=== PATIENT | female | born 1990 | race Caucasian/White ===

== ENCOUNTER 2017-07-04 16:59 | Emergency (ER) | payer MEDICAID, SELFPAY ==
[2017-07-04 16:59] VITALS: BP 148/75; PULSE 119; RESP 16; TEMP 36.2; O2SAT 100; BMI 20.2
--- NOTE | 2017-07-04 17:27 | US_ITS ---
STUDY: ULTRASOUND TRANSVAGINAL CLINICAL: Female, 27 years old. Menorrhagia status post . TECHNIQUE: Transvaginal COMPARISON: None. FINDINGS: Normal uterine size measuring 10.6 x 5.6 x 4.9 cm in maximal craniocaudal dimension. There are no myometrial masses. Normal endometrial thickness measuring 6 mm. Heterogeneous moderately irregular and possibly hypervascular endometrial echoes. Cannot exclude small amount of retained products of conception. Normal uterine cervix. Normal right ovary, measuring 4.6 x 2.6 x 2.7 cm. There is a 2.9 cm cyst. Left ovary is not seen. There is mild free fluid in the pelvis. Polycystic ovary disease: No. US/Transvaginal Non- IMPRESSION: Heterogeneous and irregular endometrial echoes with questionable hypervascularity. Cannot exclude mild retained products of conception. 2.9 cm cyst of the right ovary. Electronically Signed: Bang Crawley MD at 19:19 EDT , Service support ,
[2017-07-04 17:55] LABS: Absolute Lymphocyte Count 2.31 X10^3/ul (0.83-4.51); Absolute Neutrophil Count 6.1 X10^3/uL (2.0-7.7); Basophil# 0.02 X10^3/uL; Basophil% 0.2 % (0-1); Hematocrit 18.4 % (37-47); Lymphocyte # 2.31 X10^3/ul (4.0); Lymphocyte % 25.6 % (19-41); Mean Corp Hgb Conc 32.1 g/gl (32-36); Mean Corpuscular Hgb 28.9 pg (27.0-32.0); Mean Corpuscular Volume 90.2 fL (81-99); Mean Platelet Vol. 9.6 fl (6.2-12.0); Monocyte# 0.63 X10^3/uL; Neutrophil # 6.06 X10^3/uL (2.7-7.7); Platelet Count 199 K/mm3 (150-450); RBC Distribution Width CV 13.7 % (11.6-14.6); RBC Distribution Width SD 45.4 fl (35.1-43.9); Red Blood Count 2.04 M/mm3 (4.2-5.4)
[2017-07-04 18:01] LABS: Hemoglobin 5.9 g/dl (12.0-15.0); POSITIVE COUNT YES; POSITIVE DIFFERENTIAL NO; POSITIVE MORPHOLOGY NO
[2017-07-04 18:02] LABS: Differential Indicated SCAN CRITERIA MET
[2017-07-04 18:25] LABS: Anisocytosis 1+; Hypochromasia 1+; Platelet Estimate ADEQUATE (ADEQ); Polychromasia RARE
[2017-07-04 18:52] VITALS: BP 120/68; BP 120/72; BP 126/62; PULSE 108; PULSE 94; PULSE 96
--- NOTE | 2017-07-04 19:46 | ED.VISSUMM ---
- ER Visit Summary Date of Service: 07/04/17 Chief Complaint: Vaginal bleeding History of Present Illness: The patient is a 27 F presenting for evaluation secondary to vaginal bleeding. Patient underwent a chemical on 06 10. Patient states that she had a normal amount of bleeding after that that stopped after a couple of days. Patient states of 5 days ago she started to have a significant amount of vaginal bleeding again. Patient states that she was going through 2 pads an hour a couple of days ago, but states that since then her bleeding is somewhat tapered off. Patient denies that she is having significant pelvic pain with this. She does intermittently feel somewhat lightheaded denies any chest pain or shortness of breath. Patient is Rh- and got RhoGam prior to her procedure. Physical Examination: Vital signs within normal limits normal blood pressure. Well-nourished female no acute distress. Conjunctival pallor noted. Neck supple heart regular lungs clear. Pelvic exam shows normal external genitalia. There is a moderate amount of active bleeding with small clots noted in the vaginal vault. Cervical eyes was able to be viewed and is normal and closed. Bimanual exam normal. Test Results: CBC shows anemia hemoglobin of 5.9. Patient is Rh-. Pelvic ultrasound shows a 6 mm endometrial stripe, but areas in the endometrium that are concern for hypervascularity. Emergency Department Course and Treatment: Patient presented with vaginal bleeding in the setting of a elective chemical . Patient was found to be anemic. Patient's orthostatic vital signs are found to be negative. Patient's pelvic ultrasound was not able to rule out retained products of conception. I discussed patient's case with Dr. Gonzalez who recommended the patient to be given Cytotec, and be placed on iron. It was recommended that the patient follow-up with her clinic at her earliest convenience. Patient was given signs and symptoms for which to return. She has normal stable blood pressures and appears well compensated I believe that she is safe for discharge at this time. Disposition: Discharge Impression: 1. Vaginal bleeding 2. Recent chemical 3. Anemia This note was generated with [employer] software. It may contain incorrect words, spelling, and punctuation that were not noted in review of the chart prior to signing ED Disposition - Plan for ED Patient: Disposition: Home or Assisted Living Chief Complaint: Vag Bleeding Diagnosis: Menorrhagia Instructions: ED Bleed Irregular Vaginal Prescriptions: Ferrous Sulfate [Iron] 325 mg PO DAILY #30 tab Additional Instructions: Followup with your clinic as soon as possible. Return for worsening bleeding, shortness or breath, or passing out
[2017-07-04 19:48] VITALS: BP 126/62; PULSE 98; RESP 18; O2SAT 100
[2017-07-04] MEDS: miSOPROStol 200 MCG Tablet 400 MCG PO (20:06)
[2017-07-04 20:11] VITALS: BP 111/64; PULSE 96; RESP 17; O2SAT 110
[2017-07-08 12:55] LABS: Pathologist Review Reviewed
== END 2017-07-04 20:17 | disposition home or self-care (01) ==
PROVIDERS: Emergency Provider Emergency Medicine
DX: O03.6 Delayed or excessive hemorrhage following complete or unspecified spontaneous abortion (principal); D64.9 Anemia, unspecified
CPT/HCPCS: 76830; 85025; 86900; 86901; 99285

== ENCOUNTER 2017-10-16 19:19 | Emergency (ER) | payer MEDICAID, SELFPAY ==
[2017-10-16 19:20] VITALS: BP 112/61; PULSE 124; PULSE 133; RESP 100; RESP 20; TEMP 37.6; O2SAT 100; BMI 19.5
--- NOTE | 2017-10-16 19:31 | ED.RN ---
NO OLD EKG'S IN MUSE
[2017-10-16 19:40] LABS: Mucous, Urine 0 SEEN /hpf (<or=2+)
[2017-10-16 19:43] LABS: Color, Urine Yellow (Yellow); Glucose, Dipstick Normal (Normal); Ketone-Dipstick Negative (Negative); Leukocyte Esterase-Dipstick 500 /ul (Negative); Nitrite-Dipstick Positive (Negative); Occult Blood-Urine 50 /ul (Negative); Protein-Dipstick 30 mg/dl (Negative); Urine Bilirubin Dipstick Negative (Negative); Urine Clarity Cloudy (Clear); Urine Urobilinogen Normal (Normal)
[2017-10-16] MEDS: 0.9% Normal Saline 1,000 ML IV.SOLN. 1530 ML IV (19:50)
[2017-10-16] MEDS: Acetaminophen 325 MG Tablet 650 MG PO (19:51)
[2017-10-16 19:55] VITALS: TEMP 37.7
[2017-10-16 20:07] LABS: International Normalized Ratio 1.1; Prothrombin Time (Protime)PT. 14.3 SECONDS (11.7-14.9)
[2017-10-16 20:08] LABS: Absolute Lymphocyte Count 1.52 X10^3/ul (0.83-4.51); Absolute Neutrophil Count 6.3 X10^3/uL (2.0-7.7); Basophil# 0.02 X10^3/uL; Basophil% 0.2 % (0-1); Hematocrit 27.3 % (37-47); Lymphocyte # 1.52 X10^3/ul (4.0); Lymphocyte % 17.6 % (19-41); Mean Corp Hgb Conc 29.3 g/gl (32-36); Mean Corpuscular Hgb 21.3 pg (27.0-32.0); Mean Corpuscular Volume 72.8 fL (81-99); Mean Platelet Vol. 9.7 fl (6.2-12.0); Monocyte# 0.75 X10^3/uL; Monocyte% 8.7 % (0-10); Neutrophil # 6.33 X10^3/uL (2.7-7.7); Neutrophil % 73.4 % (47-70); Partial Thromboplast Time 36.5 Seconds (24.1-36.2); Platelet Count 247 K/mm3 (150-450); RBC Distribution Width CV 21.2 % (11.6-14.6); RBC Distribution Width SD 57.1 fl (35.1-43.9); Red Blood Count 3.75 M/mm3 (4.2-5.4); White Blood Count 8.6 K/mm3 (4.4-11.0)
[2017-10-16 20:13] LABS: Red Blood Cells-Urine 0-5 SEEN /hpf (0-5); White Blood Cells 50-100 SEEN /hpf (0-5)
[2017-10-16 20:14] LABS: Squamous Epithelial Cells - UA 0-5 SEEN /hpf (5-10)
[2017-10-16 20:14] LABS: ALB/GLOB Ratio 0.9 RATIO (0.9-2.4); AST(SGOT) 15 U/L (15-37); Alanine Aminotransfer ALT/SGPT 22 U/L (13-56); Albumin, Serum 3.8 g/dL (3.2-5.0); Alkaline Phosphatase 86 U/L (45-117); Anion Gap 7 (5-15); BUN 9 mg/dL (7-18); BUN/Creat Ratio 13.7 RATIO (10-20); Chloride 100 mmol/L (98-107); Creatinine, Serum 0.66 mg/dL (0.55-1.02); EST Glomerular Filtration Rate 116 mL/min (>60); Est Glom Filt Rate - Afr Amer 141 mL/min (>60); Estimated Creatinine Clearance 106.55 ml/min; Globulin 4.1 g/dL (2.2-4.2); Glucose 103 mg/dL (74-106); Potassium 3.3 mmol/L (3.5-5.1); Protein, Total 7.9 g/dL (6.4-8.2); Sodium Level 134 mmol/L (136-145)
[2017-10-16 20:16] LABS: Bacteria 3+ /hpf (None Seen)
[2017-10-16 20:19] LABS: Differential Indicated SCAN CRITERIA MET; POSITIVE COUNT NO; POSITIVE DIFFERENTIAL NO; POSITIVE MORPHOLOGY YES
[2017-10-16 20:36] LABS: Lactic Acid 1.1 mmol/L (0.4-2.0)
[2017-10-16 20:42] LABS: Platelet Estimate ADEQUATE (ADEQ)
[2017-10-16 20:43] LABS: Anisocytosis 1+; Hypochromasia 1+; Microcytosis 1+; Toxic Granulation RARE
[2017-10-16 21:07] VITALS: BP 103/56; PULSE 100; RESP 20; O2SAT 99
--- NOTE | 2017-10-16 21:07 | ED.RN ---
DR LUCAS AWARE THAT THE PT ONLY RECEIVED ONE LITER NORMAL SALINE,QUESTIONED IF HE WANTED THE REMAINDER 530.STATED NO BECAUSE HER LACTIC IS FINE.
[2017-10-16] MEDS: Ceftriaxone 1 GM/50 ML BAG IV (21:35)
--- NOTE | 2017-10-16 21:35 | ED.VISSUMM ---
- ER Visit Summary Date of Service: 10/16/17 Chief Complaint: UTI and right flank pain History of Present Illness: The patient is a 27 F presenting for evaluation secondary UTI and right flank pain. Patient reports that she is proximally 5 weeks . She is . Patient reports that over the course last 4 days she has had UTI-like symptoms and over the last 2 days she has had flank pain right greater than left. Patient reports that she was seen in urgent care was told that she had a fever and flank pain that she need to come emergently to the emergency department. Patient denies that she is having any other constitutional symptoms such as nausea or vomiting. Review of systems otherwise negative. Physical Examination: Vital signs notable for heart rate of 120 on initial presentation. Well-nourished female no acute distress. Head normocephalic. Moist mucous membranes. No JVD. Heart tach heart irregular no murmurs. Lungs sounds clear. Abdomen soft nontender. Right-sided CVA tenderness to percussion no evidence of deformity overlying vesicular rash. Remainder physical otherwise unremarkable. Test Results: CBC shows chronic anemia 8.0, chemistry unremarkable, lactic acid negative, urinalysis shows evidence of infection Emergency Department Course and Treatment: Patient presented secondary to flank pain and fever. Sepsis workup was obtained, patient has chronic anemia does not have evidence of sepsis or lactic acidosis. She was given a liter normal saline repeat heart rate was in the 80s. Patient will be given Rocephin, she will be discharged on a course of Keflex as she does state that she is 5 weeks . Patient was instructed to follow-up with her primary care physician. Disposition: Discharge Impression: 1. Pyelonephritis 2. First trimester This note was generated with [employer] dictation software. It may contain incorrect words, spelling, and punctuation that were not noted in review of the chart prior to signing ED Disposition - Plan for ED Patient: Disposition: Home or Assisted Living Chief Complaint: Complaint Diagnosis: Pyelonephritis Instructions: ED Kidney Infec Female Prescriptions: Cephalexin [Keflex] 500 mg PO Q6 #40 cap Referrals: Debora Leyva MD [COURTESY STAFF PHYSICIAN] - 3-5 Days
[2017-10-16 22:22] VITALS: BP 103/60; PULSE 89; RESP 16; O2SAT 99
[2017-10-16 22:23] VITALS: BP 103/60; PULSE 89; RESP 16; O2SAT 99
== END 2017-10-16 22:24 | disposition home or self-care (01) ==
PROVIDERS: Emergency Provider Emergency Medicine
DX: O23.01 Infections of kidney in pregnancy, first trimester (principal); Z3A.01 Less than 8 weeks gestation of pregnancy
CPT/HCPCS: 80053; 81001; 83605; 85025; 85610; 85730; 87040; 87077; 87086; 87088; 87186; 96365; 99285; J7030; J7050; A4216

== ENCOUNTER → 2017-10-30 14:05 | Outpatient (CLI) | payer MEDICAID, SELFPAY ==
[2017-10-30 17:21] LABS: Chlamydia Trachomatis by PCR Negative (Negative); Neisserai gonorrhoeae by PCR Negative (Negative); Probe Check PASS; Sample Adequacy Control PASS; Specimen Processing Control PASS
[2017-11-06 17:15] LABS: HPV Reflexed? NOT INDICATED
== END ==
PROVIDERS: Visit Provider Obstetrics & Gynecology
DX: Z12.4 Encounter for screening for malignant neoplasm of cervix (principal); Z11.3 Encounter for screening for infections with a predominantly sexual mode of transmission; Z32.01 Encounter for pregnancy test, result positive
CPT/HCPCS: 87491; 87591; 88175; G0145

== ENCOUNTER → 2017-11-13 10:34 | Outpatient (CLI) | payer MEDICAID, SELFPAY ==
[2017-11-13 11:29] LABS: Color, Urine Yellow (Yellow); Glucose, Dipstick Normal (Normal); Ketone-Dipstick Negative (Negative); Leukocyte Esterase-Dipstick Negative /ul (Negative); Nitrite-Dipstick Negative (Negative); Occult Blood-Urine Negative /ul (Negative); Protein-Dipstick Negative (Negative); Specific Gravity, Urine 1.015 (1.002-1.030); Urine Bilirubin Dipstick Negative (Negative); Urine Clarity Clear (Clear); Urine Urobilinogen Normal (Normal)
[2017-11-13 11:31] LABS: Absolute Lymphocyte Count 1.51 X10^3/ul (0.83-4.51); Absolute Neutrophil Count 2.6 X10^3/uL (2.0-7.7); Basophil# 0.02 X10^3/uL; Basophil% 0.4 % (0-1); Hematocrit 27.3 % (37-47); Hemoglobin 8.3 g/dl (12.0-15.0); Lymphocyte # 1.51 X10^3/ul (4.0); Lymphocyte % 33.4 % (19-41); Mean Corp Hgb Conc 30.4 g/gl (32-36); Mean Corpuscular Hgb 23.4 pg (27.0-32.0); Mean Corpuscular Volume 76.9 fL (81-99); Monocyte# 0.38 X10^3/uL; Monocyte% 8.4 % (0-10); Neutrophil # 2.61 X10^3/uL (2.7-7.7); Neutrophil % 57.8 % (47-70); Platelet Count 233 K/mm3 (150-450); RBC Distribution Width CV 19.7 % (11.6-14.6); RBC Distribution Width SD 55.4 fl (35.1-43.9); Red Blood Count 3.55 M/mm3 (4.2-5.4); White Blood Count 4.5 K/mm3 (4.4-11.0)
[2017-11-13 11:34] LABS: POSITIVE COUNT NO; POSITIVE DIFFERENTIAL NO; POSITIVE MORPHOLOGY NO
[2017-11-13 11:42] LABS: Amphetamine Urine VISTA NEGATIVE (<1000 ng/mL); Barbiturate Urine VISTA NEGATIVE (< 200 ng/mL); Benzodiazepine Urine VISTA NEGATIVE (< 200 ng/mL); Cocaine Urine VISTA NEGATIVE (< 300 ng/mL); Ecstacy Urine VISTA NEGATIVE (< 500 ng/mL); Methadone Urine VISTA NEGATIVE (< 300 ng/mL); PCP Urine VISTA NEGATIVE (< 25 ng/mL); THC Urine VISTA NEGATIVE (< 50 ng/mL); Vista UDS pH Range 8
[2017-11-13 11:47] LABS: Thyroid Stim Hormone (TSH) 1.71 uIU/mL (0.358-3.74)
[2017-11-14 01:34] LABS: Prenatal RPR NONREACTIVE (NONREACTIVE)
[2017-11-14 09:38] LABS: HIV - WCH Non-Reactive (Nonreactive); Rubella IgG 91.5 IU/mL
[2017-11-17 11:37] LABS: HEPATITIS B SURFACE AG Negative (Negative); Hep C Antibodies <0.1 s/co ratio (0.0-0.9); V-Zoster IgG (Immunity) 585 index (Immune >165)
== END ==
PROVIDERS: Visit Provider Obstetrics & Gynecology
DX: Z34.81 Encounter for supervision of other normal pregnancy, first trimester (principal)
CPT/HCPCS: 36415; 80307; 81002; 84443; 85025; 86703; 86762; 86787; 86803; 87340

== ENCOUNTER → 2018-01-02 10:37 | Outpatient (CLI) | payer MEDICAID, SELFPAY | PROVIDERS: Visit Provider Obstetrics & Gynecology | DX: N39.0 Urinary tract infection, site not specified (principal) | CPT/HCPCS: 87086; 87088; 87186 ==

== ENCOUNTER → 2018-02-24 11:28 | Outpatient (CLI) | payer MEDICAID, SELFPAY ==
[2018-02-24 12:24] LABS: Hematocrit 28.8 % (37-47); Hemoglobin 8.9 g/dl (12.0-15.0); Mean Corp Hgb Conc 30.9 g/gl (32-36); Mean Corpuscular Hgb 25.1 pg (27.0-32.0); Mean Corpuscular Volume 81.1 fL (81-99); Mean Platelet Vol. 9.8 fl (6.2-12.0); Platelet Count 282 K/mm3 (150-450); RBC Distribution Width CV 14.4 % (11.6-14.6); RBC Distribution Width SD 41.2 fl (35.1-43.9); Red Blood Count 3.55 M/mm3 (4.2-5.4); White Blood Count 5.6 K/mm3 (4.4-11.0)
[2018-02-24 12:25] LABS: Scan Indicated on CBC? Y/N NO
[2018-02-24 12:37] LABS: Glucose Challenge Gest 1H 50g 78 mg/dL (70-140)
== END ==
PROVIDERS: Visit Provider Obstetrics & Gynecology
DX: Z34.83 Encounter for supervision of other normal pregnancy, third trimester (principal)
CPT/HCPCS: 36415; 82950; 85027; 86850

== ENCOUNTER → 2018-04-16 12:02 | Outpatient (CLI) | payer MEDICAID, SELFPAY | PROVIDERS: Visit Provider Obstetrics & Gynecology | DX: Z36.85 Encounter for antenatal screening for Streptococcus B (principal) | CPT/HCPCS: 87081 ==

== ENCOUNTER 2018-05-17 13:35 | Inpatient (IN) | payer MEDICAID, SELFPAY ==
--- NOTE | 2018-05-17 13:17 | OB.TRI.NOTE ---
- Problem List (1) 39 weeks gestation of Status: Acute History of Present Illness Date of Service: 05/17/18 Reason For Visit: R/O LABOR Final FARIHA: 05/18/18 Final FARIHA Source: US <20 weeks Gestational age: 39 Weeks and 6 Days History of Present Illness: 27yo c/o leaking of fluid. Allergies No Known Allergies Allergy (Verified 10/16/17 19:19) Physical Exam Cervix Dilation (cm): 2 - per RN exam Sanjuana Farrell Station: -2 Effacement (%): 60 NST - FHR Rate Baby A Baseline: 135 Variability:: Moderate Accelerations:: 15 x 15 Decelerations:: None NST Reactive:: Yes FHR Category:: Category I Uterine Activity:: 10
[2018-05-17 13:25] VITALS: BMI 21.9
[2018-05-17 13:36] LABS: ROM Internal Control Test YES-OK TO RESULT pt. (Internal QC)
[2018-05-17 13:37] LABS: ROM Patient Test POSITIVE (Negative); Record Kit Lot#, ROM+ J7836
--- NOTE | 2018-05-17 13:41 | PCM.HP.OB ---
- Problem List (1) 39 weeks gestation of Status: Acute History Date of Admission: 05/17/18 Final FARIHA: 05/18/18 Final FARIHA Source: US <20 weeks Gestational age: 39 Weeks and 6 Days History of this : This is a 27 year-old, G [], P [], at weeks gestational age. Medical History: Medical History (Last Updated 05/17/18 @ 14:13 by Mayelin Ward MD) Opiate dependence (Acute) F11.20 on Subutex Allergies No Known Allergies Allergy (Verified 05/17/18 13:25) Home Medications: Home Medications Buprenorphine HCl 12 mg PO DAILY 05/17/18 Vits [Prenatabs FA] 1 tablet PO DAILY 05/17/18 Subutex 12mg PO qam Subutex 6mg PO qpm Smoking Status: Current every day smoker Number of Fetus(es): 1 Heart Tracin, moderate variability, + accelerations, no decelerations. TOCO Analysis: 2/10 min History Past Pregnancies: Past Pregnancies Delivery Date GA/Weeks Outcome Route Weight Gender Labor Length Anesthesia Delivery Location 01/2011 8 SAB Vaginal n/a Home 12/2011 40 Viable 8# M 14 Epidural [facility] 09/2015 39 Viable 7#13 F 12 Epidural [facility] 04/2017 8 TOP Medication Home Expected Infant Delivery Method: Spontaneous Vaginal Describe any other labor & delivery plans:: Pitocin Physical Exam Vitals: avss General: Alert, Oriented x3, Cooperative, No apparent distress HEENT: Atraumatic, Normocephalic Cardiovascular: Regular rate, Regular Rhythm, Normal S1 Lungs: Normal air movement Abdomen: Soft, Non Tender, Non-Distended, Gravid Extremities:: No edema Neurological: Neuro grossly intact [employer]OTHERM[employer] PRODUCTION MANAGER: Normal external genitalia Estimated gestational size: Appropriate for gestational size Presentation: Cephalic Cervix Dilation (cm): 2 Station: -1 Effacement (%): 60 Assessment/Plan All Active Problems 39 weeks gestation of (Acute) PROM (premature rupture of membranes) (Acute) This is a 27 year-old, G [5], P [2021], at 39 6/7 weeks gestational age with premature rupture of membranes, Cat I FHR -Admit -US confirms cephalic presentation -Start pitocin, reviewed with patient r/b/i/a -LARC declined -on Subutex - pt to have home meds brought in for continuation. Discussed optimal pain management in hospital. -Consents reviewed
--- NOTE | 2018-05-17 13:46 | HP.PCM_ITS ---
- Problem List (1) 39 weeks gestation of Status: Acute History Date of Admission: 05/17/18 Final FARIHA: 05/18/18 Final FARIHA Source: US <20 weeks Gestational age: 39 Weeks and 6 Days History of this : This is a 27 year-old, G [], P [], at weeks gestational age. Medical History: Medical History (Last Updated 05/17/18 @ 14:13 by Mayelin Ward MD) Opiate dependence (Acute) F11.20 on Subutex Allergies No Known Allergies Allergy (Verified 05/17/18 13:25) Home Medications: Home Medications Buprenorphine HCl 12 mg PO DAILY 05/17/18 Vits [Prenatabs FA] 1 tablet PO DAILY 05/17/18 Subutex 12mg PO qam Subutex 6mg PO qpm Smoking Status: Current every day smoker Number of Fetus(es): 1 Heart Tracin, moderate variability, + accelerations, no decelerations. TOCO Analysis: 2/10 min History Past Pregnancies: Past Pregnancies Delivery Date GA/Weeks Outcome Route Weight Gender Labor Length Anesthesia Delivery Location 01/2011 8 SAB Vaginal n/a Home 12/2011 40 Viable 8# M 14 Epidural [facility] 09/2015 39 Viable 7#13 F 12 Epidural [facility] 04/2017 8 TOP Medication Home Expected Infant Delivery Method: Spontaneous Vaginal Describe any other labor & delivery plans:: Pitocin Physical Exam Vitals: avss General: Alert, Oriented x3, Cooperative, No apparent distress HEENT: Atraumatic, Normocephalic Cardiovascular: Regular rate, Regular Rhythm, Normal S1 Lungs: Normal air movement Abdomen: Soft, Non Tender, Non-Distended, Gravid Extremities:: No edema Neurological: Neuro grossly intact REPAIRER AND CHECKER: Normal external genitalia Estimated gestational size: Appropriate for gestational size Presentation: Cephalic Cervix Dilation (cm): 2 Station: -1 Effacement (%): 60 Assessment/Plan All Active Problems 39 weeks gestation of (Acute) PROM (premature rupture of membranes) (Acute) This is a 27 year-old, G [5], P [2021], at 39 6/7 weeks gestational age with premature rupture of membranes, Cat I FHR -Admit -US confirms cephalic presentation -Start pitocin, reviewed with patient r/b/i/a -LARC declined -on Subutex - pt to have home meds brought in for continuation. Discussed optimal pain management in hospital. -Consents reviewed
[2018-05-17 14:56] LABS: Amphetamine Urine VISTA NEGATIVE (<1000 ng/mL); Barbiturate Urine VISTA NEGATIVE (< 200 ng/mL); Benzodiazepine Urine VISTA NEGATIVE (< 200 ng/mL); Cocaine Urine VISTA NEGATIVE (< 300 ng/mL); Ecstacy Urine VISTA NEGATIVE (< 500 ng/mL); Methadone Urine VISTA NEGATIVE (< 300 ng/mL); PCP Urine VISTA NEGATIVE (< 25 ng/mL); THC Urine VISTA NEGATIVE (< 50 ng/mL)
[2018-05-17 14:58] LABS: Vista UDS pH Range 6
[2018-05-17] MEDS: Lactated Ringers 1,000 ML 50 ML IV ×2 (14:59→17:22)
[2018-05-17 15:19] LABS: Hematocrit 32.3 % (37-47); Hemoglobin 9.9 g/dl (12.0-15.0); Mean Corp Hgb Conc 30.7 g/gl (32-36); Mean Corpuscular Hgb 23.2 pg (27.0-32.0); Mean Corpuscular Volume 75.8 fL (81-99); Platelet Count 239 K/mm3 (150-450); RBC Distribution Width CV 15.1 % (11.6-14.6); RBC Distribution Width SD 40.9 fl (35.1-43.9); Red Blood Count 4.26 M/mm3 (4.2-5.4); Scan Indicated on CBC? Y/N NO; White Blood Count 8.6 K/mm3 (4.4-11.0)
[2018-05-17] MEDS: Oxytocin 30 units/NS 500 ml 30 UNITS/500 ML IV.SOLN IV (15:48)
[2018-05-17] MEDS: fentaNYL-bupivacaine (epidural) 100 ML BAG EPIDURAL (17:44)
--- NOTE | 2018-05-17 20:04 | PCM.PN.BLA ---
Progress Note LABOR PROGRESS NOTE No complaints. Anson is comfortable with her epidural. Denies urge to push. AVSS GEN - NAD, AAo x 3 FHR 135, moderate variability, + accelerations, +early decelerations TOCO 4/10 min SVE 6/90/0 per RN Mady Griffith A/P: 27yo @ 39 6/7wga in active labor on pitocin, Cat I FHR. -Continue pitocin as tolerated by mother and fetus -Maternal and statuses reassuring
[2018-05-17] MEDS: Oxytocin 30 units/NS 500 ml 30 UNITS/500 ML IV.SOLN 334 UNITS IV (20:57)
--- NOTE | 2018-05-17 21:22 | PCM.OB.VAG ---
- Problem List (1) 39 weeks gestation of Status: Acute (2) (spontaneous vaginal delivery) Status: Acute Vaginal Delivery Maternal Presentation: Spontaneous Rupture of Membranes Method of Induction: Pitocin Amniotic Membrane Rupture Type: Spontaneous at home Rupture of Membrane time: 02305/17/18 Amniotic Fluid Description: Clear Final FARIHA: 05/18/18 Final FARIHA Source: US <20 weeks Gestational age: 39 Weeks and 6 Days Date of Procedure: 05/17/18 Pre-Operative Diagnosis: 39 6/7wga Post-Operative Diagnosis: 39 6/7wga Surgery/ Procedure Performed: Spontaneous Vaginal Delivery Anesthesiologist: Paulina Amado Type of Anesthesia: Epidural Description of Procedure: Patient was FD/+3 station and pushed to deliver a vigorous male . The was placed on the maternal abdomen and further attended by nursery personnel. The cord was doubly clamped and cut. Cord blood specimen was obtained. The placenta delivered spontaneously and appeared intact on inspection, however trailing and residual membranes were noted and retrieved with intrauterine exam and gauze curettage. The uterus was firm with excellent hemostasis. A second degree perineal laceration was repaired with 3-0 Vicryl Rapide. Sponge and needle counts were correct x 2. Presentation: Vertex Placental Delivery Description: Spontaneous Placenta Disposition: [facility] Cord Vessel Description: 3 Vessels Nuchal Cord Compression: Without compression Estimated Blood Loss: 250 ml Infant A gender: Male (1 minute): 9 (5 minute): 9 Episiotomy Description: None Laceration: Midline, Perineal Extension/lac, 2nd degree Medications given after delivery: IV Pitocin Complications: None
[2018-05-17] MEDS: Oxytocin 30 units/NS 500 ml 30 UNITS/500 ML IV.SOLN 167 UNITS IV (21:27)
--- NOTE | 2018-05-17 21:37 | PCM.DCVAG ---
Discharge Diet: No Restrictions Discharge Activity: Return to Normal Activity, May Shower, May Take a Tub Bath May resume sexual activity in: 6 weeks Lifting Restrictions: 20 lb Call your doctor if you observe: Fever of 101 or Higher, Inability to urinate, Inability to have a bowel movement, Using more than one pad per hour, Shortness of breath, Chest pain, Calf discomfort, Uncontrolled pain Suture Line Care: Avoid Pulling/Pushing Cleanse incision/area with: Soap & Water Additional Instructions: If you experience any of the following, contact your healthcare provider. Bleeding that soaks a pad every hour for 2 hours Fever 100.4 or higher Unrelieved incision or abdominal pain Swelling, redness, discharge or bleeding from your incision or episiotomy site Your incision begins to separate Problems urinating (including inability to urinate or burning while urinating). Visual changes Severe headache Flu-like symptoms Pain or redness in one of both of your breasts Pain, warmth, tenderness or swelling in your legs, especially the calf area Frequent nausea and vomiting Symptoms of depression or anxiety If you experience any of the following, call 911 or go to the nearest Emergency Room. Chest pain Problems breathing Seizure activity Partial or complete paralysis of a body part, slurred speech, weakness or drooping of the face, or a sudden inability to walk or hold your balance Allergies/Adverse Reactions: Allergies No Known Allergies Allergy (Verified 05/17/18 13:25) Medications to take at Discharge Buprenorphine HCl 8 mg PO DAILY 05/17/18 Docusate Sodium [Colace] 100 mg PO BID PRN PRN #60 capsule 05/17/18 Ibuprofen 600 mg PO TID PRN #30 tablet 05/17/18 Vits [Prenatabs FA] 1 tablet PO DAILY 05/17/18 The following prescriptions were given: Docusate Sodium [Colace] 100 mg PO BID PRN PRN #60 capsule PRN Reason: Constipation Ibuprofen 600 mg PO TID PRN #30 tablet PRN Reason: Pain Please Follow Up With: Jaskaran Kim MD When: 2 weeks and 6 weeks after delivery Test Results: Test results from this visit will be discussed in further detail at your follow-up appointment, if applicable.
--- NOTE | 2018-05-17 21:41 | DCINST_ITS ---
Discharge Diet: No Restrictions Discharge Activity: Return to Normal Activity, May Shower, May Take a Tub Bath May resume sexual activity in: 6 weeks Lifting Restrictions: 20 lb Call your doctor if you observe: Fever of 101 or Higher, Inability to urinate, Inability to have a bowel movement, Using more than one pad per hour, Shortness of breath, Chest pain, Calf discomfort, Uncontrolled pain Suture Line Care: Avoid Pulling/Pushing Cleanse incision/area with: Soap & Water Additional Instructions: If you experience any of the following, contact your healthcare provider. * Bleeding that soaks a pad every hour for 2 hours * Fever 100.4 or higher * Unrelieved incision or abdominal pain * Swelling, redness, discharge or bleeding from your incision or episiotomy site * Your incision begins to separate * Problems urinating (including inability to urinate or burning while urinating). * Visual changes * Severe headache * Flu-like symptoms * Pain or redness in one of both of your breasts * Pain, warmth, tenderness or swelling in your legs, especially the calf area * Frequent nausea and vomiting * Symptoms of depression or anxiety If you experience any of the following, call 911 or go to the nearest Emergency Room. * Chest pain * Problems breathing * Seizure activity * Partial or complete paralysis of a body part, slurred speech, weakness or drooping of the face, or a sudden inability to walk or hold your balance Allergies/Adverse Reactions: Allergies No Known Allergies Allergy (Verified 05/17/18 13:25) Medications to take at Discharge Buprenorphine HCl 8 mg PO DAILY 05/17/18 Docusate Sodium [Colace] 100 mg PO BID PRN PRN #60 capsule 05/17/18 Ibuprofen 600 mg PO TID PRN #30 tablet 05/17/18 Vits [Prenatabs FA] 1 tablet PO DAILY 05/17/18 The following prescriptions were given: Docusate Sodium [Colace] 100 mg PO BID PRN PRN #60 capsule PRN Reason: Constipation Ibuprofen 600 mg PO TID PRN #30 tablet PRN Reason: Pain Please Follow Up With: Jaskaran Kim MD When: 2 weeks and 6 weeks after delivery Test Results: Test results from this visit will be discussed in further detail at your follow- up appointment, if applicable.
[2018-05-17] MEDS: 0.9% Saline Lock 10 ML Syringe IV (22:33)
[2018-05-17] MEDS: Acetaminophen 325 MG Tablet PO (23:29)
[2018-05-18 02:36] VITALS: BP 118/74; PULSE 73; RESP 14; TEMP 37.1
[2018-05-18 08:00] VITALS: BP 112/77; PULSE 86; RESP 14; TEMP 36.7; O2SAT 99
[2018-05-18] MEDS: Ibuprofen 600 MG Tablet PO ×2 (08:02→15:41)
[2018-05-18] MEDS: Prenatal Vits Tablet 1 TABLET PO (08:32)
[2018-05-18] MEDS: Senna/Docusate Sodium 1 Tablet PO (08:34)
--- NOTE | 2018-05-18 10:16 | NURSING ---
SN assessment reviewed and agree with assessment findings.
[2018-05-18 12:29] VITALS: BP 122/78; PULSE 90; RESP 16; TEMP 36.7; O2SAT 98
[2018-05-18] MEDS: Buprenorphine HCl 2 MG TAB.SUBL 4 MG SL (15:41)
[2018-05-18 16:30] VITALS: BP 133/79; PULSE 72; RESP 18; TEMP 36.4
--- NOTE | 2018-05-18 16:46 | NURSING ---
Updated 180 [Dr. Randall], with patients permission, that she will be taking hospital subutex while here in [facility] ; howevever, she did take one of her own pills this AM. Med will be locked up until is able to come pick it up.
[2018-05-18 20:32] VITALS: BP 131/86; PULSE 78; RESP 18; TEMP 36.5; O2SAT 100
--- NOTE | 2018-05-18 22:07 | NURSING ---
this RN communicated the pt home dose of subutex is on the unit locked in the med room. the charge nurse Lesa is aware of the plan for the father to take home when he leaves unit. this RN plans to watch the father leave the unit with medication when it occurs. father states he will inform the nurses when he plans to leave. will continue to monitor and follow up as needed.
[2018-05-19 02:45] VITALS: BP 112/76; PULSE 83; RESP 18; TEMP 36.5
[2018-05-19] MEDS: Ibuprofen 600 MG Tablet PO (06:38)
--- NOTE | 2018-05-19 06:58 | NURSING ---
charge nurse Lesa instructed this RN to send subutex (home med) home with fiance of pt. Loree, Fredy Mercedes, left for work this AM at 0630. This RN removed subutex from locked narc box in med room and gave to loree. prescription number [id number] with 0 refills left. quantity of 42 noted on pill bottle. chaitanya, nursing breakfast supervisor, was on unit to be aware of this med transfer. this RN watched Fredy leave the unit with pill bottle in hand. No further needs at this time.
--- NOTE | 2018-05-19 08:17 | PN.OBGYN_ITS ---
Patient Problems: Active and Suspected Problems (Last Updated 05/17/18 @ 14:14 by Mayelin Ramon MD) 39 weeks gestation of (Acute) PROM (premature rupture of membranes) (Acute) (spontaneous vaginal delivery) (Acute) Subjective: No issues overnight. feels well, denies heavy lochia. Objective: AVSS - Physical Exam General: Alert, Oriented x3, Cooperative, No apparent distress HEENT: Atraumatic, Normocephalic Lungs: Clear to auscultation, Normal air movement Cardiovascular: Regular rate, Regular Rhythm, Normal S1, Normal S2 Abdomen: Soft, Non Tender, Non-Distended, - - Fundus firm and nontender Extremities: No edema, No Calf Tenderness Neurological: Neuro grossly intact Psych/Mental Status: Normal Affect, Appropriate, Alert and oriented to time, place, person, mood and affect Vital Signs Temp Pulse Resp BP Pulse Ox 97.7 F L 83 18 112/76 100 05/19/18 02:45 05/19/18 02:45 05/19/18 02:45 05/19/18 02:45 05/18/18 20:32 Oxygen Delivery Method Room Air Weight: 57.878 kg Body Mass Index (BMI) 21.9 Intake and Output for Last 24 Hours 05/17/18 05/18/18 05/19/18 23:59 23:59 23:59 Intake Total 1256 / 1256 Output Total 550 / 550 300 / 300 Balance 706 / 706 -300 / -300 Medical Necessity - Tobacco Use Smoking Status: Current every day smoker Assessment/Plan All Active Problems (Last Updated 05/17/18 @ 14:14 by Mayelin Ward MD) 39 weeks gestation of (Acute) PROM (premature rupture of membranes) (Acute) (spontaneous vaginal delivery) (Acute) This is a 27 year-old, G [5], P [3023],PPD#1 s/p doing well. -Routine care -Bottlefeeding
[2018-05-19 08:35] VITALS: BP 114/69; PULSE 85; RESP 18; TEMP 36.2; O2SAT 99
[2018-05-19] MEDS: BUPRENORPHINE HCL 8 MG TAB.SUBL SL (08:38)
[2018-05-19] MEDS: Prenatal Vits Tablet 1 TABLET PO (08:38)
--- NOTE | 2018-05-19 08:58 | PN.OBGYN_ITS ---
Patient Problems: Active and Suspected Problems (Last Updated 05/17/18 @ 14:14 by Mayelin Ramon MD) 39 weeks gestation of (Acute) PROM (premature rupture of membranes) (Acute) (spontaneous vaginal delivery) (Acute) Subjective: No specific complaints. Bottle feeding. Bleeding light. Objective: Afeb VSS - Physical Exam General: Alert, Oriented x3, Cooperative, No apparent distress Lungs: Clear to auscultation, Normal air movement Cardiovascular: Regular rate, Regular Rhythm Abdomen: Soft, Non Tender, Non-Distended, - - Fundus firm nontender Extremities: No edema Skin: No rashes Neurological: Neuro grossly intact Psych/Mental Status: Normal Affect Vital Signs Temp Pulse Resp BP Pulse Ox 97.7 F L 83 18 112/76 100 05/19/18 02:45 05/19/18 02:45 05/19/18 02:45 05/19/18 02:45 05/18/18 20:32 Oxygen Delivery Method Room Air Weight: 127 lb 9.6 oz Body Mass Index (BMI) 21.9 Intake and Output for Last 24 Hours 05/17/18 05/18/18 05/19/18 23:59 23:59 23:59 Intake Total 1256 / 1256 Output Total 550 / 550 300 / 300 Balance 706 / 706 -300 / -300 Medical Necessity - Tobacco Use Smoking Status: Current every day smoker Assessment/Plan All Active Problems (Last Updated 05/17/18 @ 14:14 by Mayelin Ward MD) 39 weeks gestation of (Acute) PROM (premature rupture of membranes) (Acute) (spontaneous vaginal delivery) (Acute) Doing well on PP day#2. Cleared for discharge when baby cleared. May need to go to border status if baby stays. Home going instructions and warnings given.
--- NOTE | 2018-05-19 09:00 | DS.PCM_ITS ---
Discharge Date and Diagnosis - Problem List Patient Problems: Active and Suspected Problems (Last Updated 05/17/18 @ 14:14 by Mayelin Ramon MD) 39 weeks gestation of (Acute) PROM (premature rupture of membranes) (Acute) (spontaneous vaginal delivery) (Acute) Date of Admission: 05/17/18 Date of Discharge: 05/19/18 - Primary Discharge Diagnosis Active and Suspected Problems (Last Updated 05/17/18 @ 14:14 by Mayelin Ramon MD) 39 weeks gestation of (Acute) PROM (premature rupture of membranes) (Acute) (spontaneous vaginal delivery) (Acute) Hospital Course and Treatment Operations: None Procedures: None Summary of Care Provided: The patient is a 27 year old F [admitted with SROM, and entered labor with pitocin augmentation then pushed to deliver a live male without complication. Post course unremarkable. Discharged home on PP day#2.] Patient Problems: Active and Suspected Problems (Last Updated 05/17/18 @ 14:14 by Mayelin Ramon MD) 39 weeks gestation of (Acute) PROM (premature rupture of membranes) (Acute) (spontaneous vaginal delivery) (Acute) - Physical Exam Vital Signs Temp Pulse Resp BP Pulse Ox 97.7 F L 83 18 112/76 100 05/19/18 02:45 05/19/18 02:45 05/19/18 02:45 05/19/18 02:45 05/18/18 20:32 Oxygen Delivery Method Room Air Weight: 127 lb 9.6 oz Body Mass Index (BMI) 21.9 Intake and Output for Last 24 Hours 05/17/18 05/18/18 05/19/18 23:59 23:59 23:59 Intake Total 1256 / 1256 Output Total 550 / 550 300 / 300 Balance 706 / 706 -300 / -300 Discharge Diet: No Restrictions Discharge Activity: Return to Normal Activity, May Shower, May Take a Tub Bath Return to work on:: 07/17/18 May shower in (days): 0 May resume sexual activity in: 6 weeks Call your doctor if your incision/area has: Sudden Increased Bleeding, Increased Pain/ Swelling, Foul Smelling Discharge Call your doctor if you observe: Fever of 101 or Higher, Inability to urinate, Inability to have a bowel movement, Using more than one pad per hour, Shortness of breath, Chest pain, Calf discomfort, Uncontrolled pain Suture Line Care: Avoid Pulling/Pushing Cleanse incision/area with: Soap & Water Home Medications: Medications to take at Discharge Buprenorphine HCl 4 mg SL DAILY 05/17/18 Buprenorphine HCl 8 mg PO DAILY 05/17/18 Docusate Sodium [Colace] 100 mg PO BID PRN PRN #60 capsule 05/17/18 Ibuprofen 600 mg PO TID PRN #30 tablet 05/17/18 Vits [Prenatabs FA] 1 tablet PO DAILY 05/17/18 Following Prescrptions Were Given to Patient: Docusate Sodium [Colace] 100 mg PO BID PRN PRN #60 capsule PRN Reason: Constipation Ibuprofen 600 mg PO TID PRN #30 tablet PRN Reason: Pain Please Follow Up With: Jaskaran Kim MD When: 6 weeks Disposition: Home Minutes spent on discharge:: 15 Patient Condition:: Good Medical Necessity - Tobacco Use Smoking Status: Current every day smoker Meaningful Use Info Meaningful Use Diagnoses (Choose all that apply): None applicable
[2018-05-19 14:50] VITALS: BP 138/88; PULSE 80; RESP 16; TEMP 36.6; O2SAT 100
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
[2018-05-19] MEDS: Buprenorphine HCl 2 MG TAB.SUBL 4 MG SL (16:54)
--- NOTE | 2018-05-19 18:21 | NURSING ---
Discharge instructions reviewed with mother. Waiting on certificate to be checked with patient and significant other. Significant other upset and stated we want to go home, the children have a bedtime. Significant other to bring back photo ID 05/[id number] in order to complete certificate. Discussed discharge of mother with nurse discharge planner and concern about staffing for nightshift being able to care for . Okay with mother going on hotel status at this time, this RN encouraged that infant have a caregiver here and mother of infant stated that she would go home to put the other children to bed and then come back to stay the night.
== END 2018-05-19 18:20 | disposition home or self-care (01) | DRG 560 ==
LOC: WPOUT 13:51
PROVIDERS: Admitting Provider Obstetrics & Gynecology; Referring Provider Obstetrics & Gynecology; Visit Provider Obstetrics & Gynecology
DX: O42.92 Full-term premature rupture of membranes, unspecified as to length of time between rupture and onset of labor (principal); O70.1 Second degree perineal laceration during delivery; O99.334 Smoking (tobacco) complicating childbirth; Z79.899 Other long term (current) drug therapy; Z3A.39 39 weeks gestation of pregnancy; Z37.0 Single live birth
CPT/HCPCS: 59025; 59050; 76815; 80307; 84112; 85027; 85461; 86850; 86900; 90384; 99218; J7120; A4216; G0378; J2790

== ENCOUNTER 2019-02-21 12:50 | Emergency (ER) | payer MEDICAID, SELFPAY ==
[2019-02-21 12:51] VITALS: BP 128/80; PULSE 96; RESP 20; TEMP 37.3; O2SAT 100; BMI 20.5
--- NOTE | 2019-02-21 13:39 | EKG12_ITS ---
Test Reason : SOB Blood Pressure : / mmHG Vent. Rate : 094 BPM Atrial Rate : 094 BPM P-R Int : 160 ms QRS Dur : 084 ms QT Int : 346 ms P-R-T Axes : 081 078 -78 degrees QTc Int : 432 ms Normal sinus rhythm T wave abnormality, consider inferior ischemia Abnormal ECG Confirmed by RADHIKA NICHOLS, CADEN ([id number]), general expeditor VICENTE CORTEZ ([id number]) on 02/23/2019 11:43:05 AM Referred By: ESAU Confirmed By:CADEN GARRIDO MD
--- NOTE | 2019-02-21 13:39 | RAD_ITS ---
STUDY: X-RAY CHEST REASON FOR EXAM: Female, 28 years old. Anxiety TECHNIQUE: 2 views of the chest were obtained COMPARISON: None. FINDINGS: The lungs are clear and expanded. There is no demonstrated pleural abnormality. Normal size heart. Normal mediastinum and kelsey. Normal visualized pulmonary arteries. Normal visualized aortic arch and descending thoracic aorta. Normal visualized thoracic spine. Normal visualized ribs, clavicles, and shoulders. There is no demonstrated abnormality of the visualized soft tissue structures of the upper abdomen. RAD/Chest PA and Lateral IMPRESSION: No acute cardiopulmonary pathology Electronically Signed: Ritesh Robledo, at 14:31 EST Tel , Service support ,
[2019-02-21] MEDS: Ketorolac 30 MG/ML Syringe IV (13:58)
[2019-02-21] MEDS: 0.9% Normal Saline 1,000 ML 150 ML IV (13:58)
--- NOTE | 2019-02-21 14:05 | NURSING ---
NO OLD EKGS
[2019-02-21 14:17] LABS: Absolute Lymphocyte Count 1.75 X10^3/uL (0.83-4.51); Absolute Neutrophil Count 6.2 X10^3/uL (2.0-7.7); Basophil# 0.04 X10^3/uL; Basophil% 0.5 % (0-1); Eosinophil# 0.01 X10^3/uL; Eosinophils% 0.1 % (0-5); Hematocrit 36.1 % (37-47); Hemoglobin 11.9 g/dL (12.0-15.0); Lymphocyte # 1.75 X10^3/ul (4.0); Lymphocyte % 20.8 % (19-41); Mean Corpuscular Hgb 26.6 pg (27.0-32.0); Mean Corpuscular Volume 80.8 fL (81-99); Mean Platelet Vol. 10.8 fl (6.2-12.0); Monocyte# 0.34 X10^3/uL; NRBC Flagged by Analyzer 0 % (0-5); Neutrophil # 6.24 X10^3/uL (2.7-7.7); Neutrophil % 74.2 % (47-70); Platelet Count 257 K/mm3 (150-450); RBC Distribution Width CV 13.9 % (11.6-14.6); RBC Distribution Width SD 40.9 fl (35.1-43.9); Red Blood Count 4.47 M/mm3 (4.2-5.4); White Blood Count 8.4 K/mm3 (4.4-11.0)
[2019-02-21 14:32] LABS: Internal QC Validated? YES +Cl - CLEAR BKGD; Pregnancy, Serum, hCG Quali. NEGATIVE Negative
[2019-02-21 14:54] LABS: Anion Gap 9 (5-15); BUN 13 mg/dL (7-18); BUN/Creat Ratio 19.3 RATIO (10-20); Chloride 108 mmol/L (98-107); Creatinine, Serum 0.67 mg/dL (0.55-1.02); EST Glomerular Filtration Rate 112 mL/min (>60); Est Glom Filt Rate - Afr Amer 136 mL/min (>60); Estimated Creatinine Clearance 109.34 ml/min; Glucose 94 mg/dL (74-106); Potassium 3.5 mmol/L (3.5-5.1); Sodium Level 141 mmol/L (136-145)
--- NOTE | 2019-02-21 15:03 | ED.VIS.GEN ---
History of Present Illness Chief Complaint: Shortness of Breath Detail of Chief Complaint: Shortness of breath and chest pressure Informant: Patient Onset: Yesterday Context: Gradual Onset Timing: Waxes and wanes Current Severity: Mild Maximum Severity: Moderate Narrative: Patient presents with chest heaviness and shortness of breath. She states yesterday she went to the urgent care because she had a shock sensation down her back. She had some chest heaviness at that time as well. She states the chest heaviness is worse. She does have a history of anxiety and is not sure if this is all anxiety/panic disorder related. Patient states she feels clammy and sweaty but has not had a fever. She denies head congestion or URI symptoms. She states that she just feels more fatigued and tired. - Past Medical History (1) Anxiety Status: Chronic Past Medical History - Allergies and Home Meds Allergies/Adverse Reactions: Allergies No Known Allergies Allergy (Verified 02/21/19 12:52) Primary Care Physician: Counseling,Center [GROUP OF PHYSICIANS] - As Needed Prior records reviewed: Yes Lives: With Family Smoking Status: Current every day smoker Review of Systems General: Reports: Sweats. Denies: Chills, Fever Eyes: Denies: Visual changes - bilaterally ENT: Denies: Bilateral ear pain Cardiovascular: Reports: Chest pain. Denies: Palpitations, Heart racing Respiratory: Reports: Dyspnea. Denies: Cough, Sputum Gastrointestinal: Denies: Abdominal pain, Nausea, Vomiting, Diarrhea Genitourinary: Denies: Dysuria Skin: Denies: Rash Neurological: Denies: Headache Hematologic: Denies: Easy bruising, Easy bleeding Allergy: Denies: Uticaria Physical Exam Vital Signs/Narrative: Vital Signs Temp Pulse Resp BP Pulse Ox 02/21/19 12:51 99.1 F 96 20 H 128/80 H 100 Inital Vital Signs reviewed: Yes General: Well nourished, Well developed Head: Normocephalic Eyes: EOMI ENT: Moist mucous membranes, No rhinorrhea Neck: Supple Cardiovascular: Regular rate, Regular rhythm Respiratory: No distress, Diminished Abdomen: Soft, Nontender Back: Nontender Extremities: Nontender Skin: Normal color, No rash Neurological: Alert, Oriented x3 Psychological: Normal affect Diagnostic/Tx/Re-eval Impressions Chest X-Ray 02/21/19 13:39 IMPRESSION: No acute cardiopulmonary pathology Electronically Signed: Ritesh Robledo, at 14:31 EST Tel , Service support , 02/21/19 13:39 Chest PA and Lateral [RAD] Stat Laboratory Results 02/21/19 02/21/19 02/21/19 14:00 14:00 14:00 WBC 8.4 RBC 4.47 Hgb 11.9 L Hct 36.1 L MCV 80.8 L MCH 26.6 L MCHC 33.0 RDW Std Deviation 40.9 RDW Coeff of Tyra 13.9 Plt Count 257 MPV 10.8 Immature Gran % (Auto) 0.400 Neut % (Auto) 74.2 H Lymph % (Auto) 20.8 [place] % (Auto) 4.0 Eos % (Auto) 0.1 Baso % (Auto) 0.5 Absolute Neuts (auto) 6.2 Absolute Lymphs (auto) 1.75 Nucleated RBC % 0 Sodium 141 Potassium 3.5 Chloride 108 H Carbon Dioxide 24.0 Anion Gap 9 BUN 13 Creatinine 0.67 Estim Creat Clear Calc 109.34 Est GFR (MDRD) Af Amer 136 Est GFR (MDRD) Non-Af 112 BUN/Creatinine Ratio 19.3 Glucose 94 Calcium 9.0 Troponin I < 0.015 Serum , Qual NEGATIVE - EKG Initial EKG Interpretation: Sinus Rhythm - Sinus at [address] change. T inversions are noted inferiorly. - Medical Decision Making Patient presents with history of anxiety and chest heaviness. She has no definite cardiac risk factors. No PE risk factors. On repeat evaluation patient is resting comfortably. She is reassured with the test findings. I will write her a short course of Ativan to help with anxiety. She is referred to the counseling center for follow-up. ED Disposition - Plan for ED Patient: Disposition: Home or Assisted Living Diagnosis: Dyspnea, Anxiety Instructions: Anxiety Reaction, ED Dyspnea Prescriptions: Lorazepam [Ativan] 0.5 mg PO TID PRN #10 tab PRN Reason: Anxiety Prescription Printed Referrals: Counseling,Center [GROUP OF PHYSICIANS] - As Needed
[2019-02-21 15:41] VITALS: BP 123/84; PULSE 74; RESP 19
== END 2019-02-21 15:43 | disposition home or self-care (01) ==
PROVIDERS: Emergency Provider Emergency Medicine
DX: R06.00 Dyspnea, unspecified (principal); F41.9 Anxiety disorder, unspecified; R07.89 Other chest pain; F17.200 Nicotine dependence, unspecified, uncomplicated
CPT/HCPCS: 71046; 80048; 84484; 84703; 85025; 93005; 96361; 96374; 99284; J7030; A4216

== ENCOUNTER → 2019-12-30 12:30 | Outpatient (CLI) | payer MEDICAID, SELFPAY ==
[2019-12-16 15:38] VITALS: BMI 20.5
--- NOTE | 2019-12-30 12:31 | STEWCON_ITS ---
Reason For Study: Chest Pain, Palpitations Stress Results Protocol: Stress Echocardiogram Maximum Predicted HR: 193 bpm Target HR: 164 bpm % Maximum Predicted HR: 93 % DurationHeart Rate Stage (mm:ss) (bpm) BP Comment BASELINE 79 120/784 CC DILUTED DEFINITY ABDIEL PROTOCOL- STAGE 1 3:00 117 124/80NO SX ABDIEL PROTOCOL- STAGE 2 3:00 138 130/74NO SX ABDIEL PROTOCOL- STAGE 3 3:00 164 142/84NO SX ABDIEL PROTOCOL- STAGE 4 0:30 179 / DYSPNEA RECOVERY 99 108/78DENIES COMPLAINT Stress Duration: 9:30 mm:ss Maximum Stress HR: 179 bpm Baseline Echocardiogram Findings Stress Echo Wall motion Data Resting WM Intermediate WM Stress WM Resting Wall Motion Wall Motion Stress All segments Normal. All segments Hyperkinetic. Ejection Fraction 55 %. Ejection Fraction 65 %. Stress Results Heart rate response: Appropriate Blood pressure response: Normal resting blood pressure-appropriate response Arrhythmias: None Functional capacity: Good Stopped secondary to: Dyspnea. EKG Data Baseline ECG: Normal sinus rhythm; nonspecific T wave abnormality. Exercise ECG: No obvious ECG changes. Symptoms with Stress No complaint of chest discomfort during exercise/recovery. Interpretation Summary 1. Contrast injection performed 2. Negative (adequate) stress echocardiogram Ordering Physician: Isidro Bull MD Referring Physician: Isidro Bull Performed By: Lucia Mcclelland, RDCS, RVT
== END ==
PROVIDERS: Referring Provider Internal Medicine Cardiovascular Disease; Visit Provider Internal Medicine Cardiovascular Disease
DX: R00.2 Palpitations (principal); R07.9 Chest pain, unspecified
CPT/HCPCS: 93017; 93225; 93226; 93350; Q9957; A4216; C8928

== ENCOUNTER 2020-04-08 15:53 | Emergency (ER) | payer MEDICAID, SELFPAY ==
[2019-12-16 15:38] VITALS: BMI 20.5
[2020-04-08 15:56] VITALS: BP 151/104; PULSE 107; RESP 16; TEMP 36; O2SAT 100; BMI 22.8
--- NOTE | 2020-04-08 16:39 | ED.VIS.GEN ---
History of Present Illness Chief Complaint: Anxiety Informant: Patient Narrative: 29-year-old female presents with anxiety/panic attacks. Patient states she has a history of anxiety. She was seen about 1 year ago with similar symptoms of chest pains palpitations shortness of breath difficulty sleeping feeling extremely anxious. She had a negative work-up. She followed up with cardiology had a negative stress test. States that her dad in February of her brain tumor. She states that over the past 3 to 4 days her symptoms have worsened again. She states she is had about 14 hours of sleep in the past 4 days. She supposed to work again on Friday. She was referred to the counseling center 1 year ago but she called and there was a 3-month wait and so she did not schedule an appointment. Now 1 year later she wishes that she would have made that appointment. She also states she needs a primary care doctor but is not taking any steps for that stating that she works a whole bunch and is afraid of the pandemic. She lives with her significant other at home with her children. She is on Subutex but states she has not been taking it as regularly as she used to. Past Medical History - Allergies and Home Meds Allergies/Adverse Reactions: Allergies No Known Allergies Allergy (Verified 04/08/20 15:55) Primary Care Physician: Care Physician,No Primary [Primary Care Provider] - Past Medical History: - - Anxiety Surgical History: noncontributory Lives: Spouse/ Significant Other, With Family Smoking Status: Former smoker Drugs: - - Opiate abuse on Subutex Review of Systems General: Denies: Chills, Fever, Sweats Eyes: Denies: Visual changes - bilaterally, Diplopia ENT: Denies: Rhinorrhea, Sore throat Cardiovascular: Denies: Chest pain, Palpitations Respiratory: Denies: Dyspnea, Cough, Dyspnea on exertion Gastrointestinal: Denies: Abdominal pain, Nausea, Vomiting, Diarrhea, Melena, Hematochezia Genitourinary: Denies: Dysuria, Hematuria, Frequency Musculoskeletal: Denies: Back pain, Extremity Pain Skin: Denies: Rash, Wounds Neurological: Denies: Headache, Weakness, Numbness Psych: Reports: Anxiety. Denies: Suicidal thoughts, Suicidal ideations Physical Exam Vital Signs/Narrative: Vital Signs Temp Pulse Resp BP Pulse Ox 04/08/20 15:56 96.8 F L 107 H 16 151/104 H 100 Inital Vital Signs reviewed: Yes General: Well nourished, Well developed, No Acute Distress Head: Normocephalic, Atraumatic Eyes: Perrl, EOMI ENT: Moist mucous membranes, No rhinorrhea Neck: Supple, Nontender Cardiovascular: Regular rate, Regular rhythm, No murmurs Respiratory: No distress, CTA bilaterally, Chest nontender Abdomen: Soft, Nontender, Nondistended, Normal bowel sounds Back: Nontender, Normal Inspection Extremities: Nontender, No edema Skin: Normal color, No rash Neurological: Alert, Oriented x3, Cranial nerves II-XII grossly intact, Normal Strength, Normal Sensation Psychological: - - Patient appears anxious but not distressed. No suicidal homicidal ideation.. Negative for: Depressed, Tearful Diagnostic/Tx/Re-eval - Medical Decision Making I will refer the patient both to primary care and to the counseling center. I can write for some Vistaril for her to take. I recommend that she is going to take it be at home with her children that she have another adult present. ED Disposition - Plan for ED Patient: Disposition: Home or Assisted Living Diagnosis: KARLA (generalized anxiety disorder) Instructions: ED Panic Attack Prescriptions: hydrOXYzine pamoate capsule [Vistaril] 25 - 50 mg PO TID PRN PRN #30 cap PRN Reason: Anxiety Prescription Printed Referrals: Counseling,Center [GROUP OF PHYSICIANS] - As soon as possible Jayme Reece MD [STAFF PHYSICIAN] - As soon as possible (for primary care)
== END 2020-04-08 17:00 | disposition home or self-care (01) ==
PROVIDERS: Emergency Provider Emergency Medicine
DX: F41.1 Generalized anxiety disorder (principal); F11.10 Opioid abuse, uncomplicated; Z87.891 Personal history of nicotine dependence
CPT/HCPCS: 99282

== ENCOUNTER → 2020-07-03 14:13 | Outpatient (CLI) | payer MEDICAID, SELFPAY ==
[2020-07-03 15:38] LABS: hCG Titer Quant., Serum < 1 mIU/mL (1-3)
== END ==
PROVIDERS: Visit Provider Obstetrics & Gynecology
DX: N91.2 Amenorrhea, unspecified (principal)
CPT/HCPCS: 36415; 84702

== ENCOUNTER → 2020-07-21 10:51 | Outpatient (CLI) | payer MEDICAID, SELFPAY ==
[2020-07-26 12:57] LABS: HPV Reflexed? NOT INDICATED
== END ==
PROVIDERS: Visit Provider Obstetrics & Gynecology
DX: Z12.4 Encounter for screening for malignant neoplasm of cervix (principal)
CPT/HCPCS: 88175; G0145

== ENCOUNTER 2020-07-24 19:40 | Emergency (ER) | payer MEDICAID, SELFPAY ==
[2020-07-24 19:41] VITALS: BP 155/100; PULSE 100; RESP 18; TEMP 36.4; O2SAT 100; BMI 25.7
[2020-07-24 19:50] VITALS: O2SAT 98
--- NOTE | 2020-07-24 19:56 | CT_ITS ---
EXAMINATION : Head CT w/out contrast HISTORY : trauma COMPARISON : None. TECHNIQUE : Multiple contiguous axial images were obtained from the skull base to the vertex without intravenous contrast. A radiation dose optimization technique was used for this scan. FINDINGS : The ventricles and sulci are normal in size. There is no evidence for acute intracranial hemorrhage, mass effect, or midline shift. There is no extra-axial fluid collection. There is normal wise-white differentiation, without CT evidence of acute ischemia or infarct. The skull base and calvarium are unremarkable. The orbits are unremarkable. Partially visualized fractures of the anterior and lateral vidal of the left maxillary sinus with hemorrhage into the left maxillary sinus. The mastoid air cells are well-aerated. The soft tissues are unremarkable. CT/Brain/Head without Contrast IMPRESSION: Partially visualized fractures of the anterior and lateral vidal of the left maxillary sinus with hemorrhage into the left maxillary sinus. Refer to facial CT same date for further details. Otherwise, no intracranial hemorrhage. Electronically Signed: Ezekiel Mullen MD at 20:40 EDT Tel , Service support ,
--- NOTE | 2020-07-24 19:56 | CT_ITS ---
INDICATION: trauma EXAMINATION: CT Maxillofacial W/O Contrast Injection TECHNIQUE: Helically acquired images were obtained of the facial bones. A radiation dose optimization technique was used for this scan. IV Contrast dosage and agent: None. COMPARISON: None. FINDINGS: SOFT TISSUES: Small left infraorbital hematoma. No discrete fluid collections. VISUALIZED PARANASAL SINUSES: Hemorrhage in the left maxillary sinus. VISUALIZED MASTOID AIR CELLS: Clear. FACIAL BONES, MANDIBLE AND TMJs: Minimally displaced fracture of the orbital floor. Mildly displaced fractures of the anterior and posterolateral vidal of the left maxillary sinus. No lytic or blastic abnormality. VISUALIZED DENTITION: No periodontal osseous erosion. ORBITAL CONTENTS: Both globes, extraocular muscles and retrobulbar fat appear unremarkable. No prolapse of orbital fat or extraocular muscle entrapment. CT/Sinus/Facial Bone IMPRESSION: Orbital floor blowout fracture without entrapment or intraocular injury. Mildly displaced fractures of the anterior and posterolateral vidal of the left maxillary sinus with intrasinus hemorrhage. Electronically Signed: Ezekiel Mullen MD at 20:48 EDT Tel , Service support ,
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
[2020-07-24] MEDS: Diphth,Pertuss(Acell),Tet Vac 0.5 ML Vial IM (20:45)
[2020-07-24] MEDS: Lidocaine 1% /Epi 1:100 (20ml) 20 ML Vial INFILT (20:46)
[2020-07-24 21:44] VITALS: BP 131/62; PULSE 74; RESP 15; O2SAT 98
== END 2020-07-24 21:44 | disposition home or self-care (01) ==
LOC: ED 20:05
PROVIDERS: Emergency Provider Emergency Medicine
DX: S02.85XA Fracture of orbit, unspecified, initial encounter for closed fracture (principal); S01.81XA Laceration without foreign body of other part of head, initial encounter; S02.40DA Maxillary fracture, left side, initial encounter for closed fracture; S80.212A Abrasion, left knee, initial encounter; W01.0XXA Fall on same level from slipping, tripping and stumbling without subsequent striking against object, initial encounter; Z87.891 Personal history of nicotine dependence; Z23 Encounter for immunization
CPT/HCPCS: 12011; 70450; 70486; 90471; 90715; 99283

== ENCOUNTER 2020-08-08 05:00 | Emergency (ER) | payer MEDICAID, SELFPAY ==
[2020-08-08 05:01] VITALS: BP 152/104; PULSE 110; RESP 17; TEMP 36.6; O2SAT 99; BMI 26.0
--- NOTE | 2020-08-08 05:06 | EX.ED.DYSGE1 ---
HPI History of Present Illness Chief Complaint: Anxiety Informant: patient Onset/Context/Timing Onset: Days Context: Gradual Onset Timing: Intermittent Current Severity: Moderate Maximum Severity: Severe Narrative Narrative: Patient presents to the emergency department with anxiety. She states that she has had increasing anxiety over the past few days. She states that she wakes in panic. She is not suicidal or homicidal. She states that she is not really been on any prescription medications to help with it. She does use Vistaril from time to time, but has not had to use it in some time. She has not established care with psychiatry yet. She is also here to have stitches removed. They were placed about 15 days ago. She states that she has been doing very well. [facility] Medical History 39 weeks gestation of Opioid dependence Palpitations PROM (premature rupture of membranes) (spontaneous vaginal delivery) Home Medications buprenorphine HCl 12 mg SL DAILY 04/08/20 [History Last Taken Unknown] hydroxyzine pamoate 25 - 50 mg PO TID PRN PRN #30 cap 04/08/20 [Rx Last Taken Unknown] lorazepam 0.5 mg PO TID #10 tab 08/08/20 [Rx Last Taken Unknown] Allergy/AdvReac Type Severity Reaction Status Date / Time No Known Allergies Allergy Verified 07/24/20 19:43 Family History Father Cancer Brain Social History Smoking Status: Former smoker alcohol intake: never substance use type: does not use caffeine: Yes ROS ROS ED Constitutional Constitutional ED: Denies chills or fever(s) Eyes Eyes: Denies blurry vision or change in vision ENT ENT ED: Denies ear pain or sore throat Cardiovascular Cardiovascular: Denies chest pain or palpitations Respiratory/Chest Respiratory/Chest: Denies cough, dyspnea or dyspnea on exertion Gastrointestinal Gastrointestinal: Denies abdominal pain, nausea or vomiting Genitourinary Genitourinary ED: Denies dysuria or urinary frequency Musculoskeletal Musculoskeletal: Denies arthralgias or myalgias Integumentary Denies rash Neurologic Neurologic: Denies headache(s) or paresthesias Psychiatric Psychiatric: Reports anxiety; Denies depression Endocrine Endocrinology: Denies polydipsia or polyuria Allergic/Immunologic Allergic/Immunologic ED: Denies urticaria EXAM Physical Exam Const Vital Signs: 08/08/20 05:01 Temperature 97.8 F Temperature Source Temporal Pulse Rate 110 H Respiratory Rate 17 Blood Pressure 152/104 H Blood Pressure Mean 120 Pulse Ox 99 Oxygen Delivery Method Room Air Positive well nourished and well developed General Appearance ED: well developed HEENT Reports normocephalic, head/scalp atraumatic and moist mucous membranes Eyes PERRL and EOMs intact bilaterally Neck no lymphadenopathy and supple General: Negative for tenderness Chest Wall inspection of chest normal Resp normal respiratory effort and clear to auscultation bilaterally Cardio regular rate, regular rhythm and no murmurs GI normal to inspection, nondistended, normoactive bowel sounds Palpation: Negative for tender, guarding or rebound tenderness present Back/Spine no CVA tenderness Cervical Spine: Negative for cervical spine tenderness Thoracic Spine / Upper Back: Negative for thoracic spinal tenderness Extremity normal to inspection General Extremety ED: Negative for tenderness Neuro oriented x3 and CN's II-XII intact bilaterally Neuro Narrative: No focal deficits appreciated. Sensorium / Orientation: alert Psych mental status grossly normal Skin no rashes or lesions noted, no wounds and skin turgor normal MDM MDM MDM Narrative Medical decision making narrative: Patient presents complaining of anxiety. It is intermittent. She is not suicidal or homicidal. She does take buprenorphine daily. She does have history of opiate abuse. I will give her a very short course of Ativan and appropriate outpatient follow-up. Her stitches were removed without issue. The incision is well approximated. She did have some facial fractures, but has had no pain with ocular motion. She denies headache. She is actually doing quite well. At this time, the patient will be discharged home. Impression 1. Anxiety 2. Stitch removal Discharge Plan Triage Chief Complaint: Anxiety ED Provider: Ike Casillas Dx/Rx/DC Orders Instructions: ED Anxiety Reaction Prescriptions: New lorazepam 0.5 MG tablet 0.5 mg PO TID Qty: 10 RF: 0 No Action buprenorphine HCl 8 MG tablet, sublingual 12 mg SL DAILY RF: 0 hydroxyzine pamoate 25 MG capsule 25 - 50 mg PO TID PRN PRN (Reason: Anxiety) Qty: 30 RF: 0 amoxicillin-pot clavulanate 875 MG tablet 875 mg PO Q12H Qty: 20 RF: 0 Primary Care Provider: Care Physician,No Primary Referrals: Care Physician,No Primary [Primary Care Provider] -
[2020-08-08 05:12] VITALS: BP 152/104; PULSE 99; RESP 18; TEMP 36.6; O2SAT 98
== END 2020-08-08 05:37 | disposition home or self-care (01) ==
LOC: ED 05:22
PROVIDERS: Emergency Provider Emergency Medicine
DX: F41.9 Anxiety disorder, unspecified (principal); Z48.02 Encounter for removal of sutures; Z87.891 Personal history of nicotine dependence; Z79.899 Other long term (current) drug therapy
CPT/HCPCS: 99282

== ENCOUNTER 2020-09-07 06:57 | Day surgery (SDC) | payer MEDICAID, SELFPAY ==
[2020-09-06 13:40] LABS: Hematocrit 40.2 % (37-47); Hemoglobin 13.1 g/dL (12.0-15.0); Mean Corp Hgb Conc 32.6 g/dL (32-36); Mean Corpuscular Hgb 28.7 pg (27.0-32.0); Platelet Count 342 K/mm3 (150-450); RBC Distribution Width CV 12.5 % (11.6-14.6); RBC Distribution Width SD 40.3 fl (35.1-43.9); Red Blood Count 4.57 M/mm3 (4.2-5.4)
[2020-09-07] VITALS (7 sets, daily range): BP systolic 122–148; BP diastolic 75–93; PULSE 61–84; RESP 14–16; TEMP 36.1–37; O2SAT 95–100; BMI 26.1
--- NOTE | 2020-09-07 | FALS_PTH ---
PATIENT: MARICARMEN HARRISON LOC: [facility] [place] U#:[id number] AGE/SX: 30/F ROOM: RE09/07/[address]: Dr. Guille Singh MD : 1990 BED: DIS: 09/07/2020 SPEC #: [id number] RECD: 09/07/20 11:33 STATUS: CELIA RETheron #: [id number] ANIVAL: 09/07/20 00:[address]: Guille Singh DEPT: SURGICAL PATHOLOGY RECD BY: Candie Navas ENTERED: 09/07/20 12:20 SP TYPE: FALL TUBES OTHR DR: No Primary Care Phys Tissues: Fallopian tube Procedures: Surgery Specimen Level II HEADER OPERATION: Laparoscopic salpingectomy PRE-OP DIAGNOSIS: Sterilization TISSUE SUBMITTED: Bilateral fallopian tubes MICROSCOPIC DIAGNOSIS Right and left fallopian tubes, bilateral salpingectomies: Two complete cross-sections of fallopian tubes with no pathologic change. AM:tali 09/08/2020 MICROSCOPIC DESCRIPTION Slides are reviewed. GROSS DESCRIPTION Received in fixative is one container labeled with the patient's name and designated bilateral fallopian tubes. The specimen consists of bilateral fallopian tubes including fimbrial ends measuring 6.5 cm in length and 0.3 cm in diameter and 6.5 cm in length and 0.5 cm in diameter. The fallopian tubes are not identified as right or left. Sections reveal unremarkable cut surfaces. Hard Tile Setter sections are submitted in two cassettes with each cassette containing one fallopian tube. / JENNIFER:tali 09/07/20 TC:4 CPT:
--- NOTE | 2020-09-07 07:14 | HP.PCM.OB_ITS ---
History and Physical Date of Admission: 09/07/20 Surgical History and Physical Name: ANSON HARRISON Age: 30 Date of : 1990 Anson Harrison, a 30 year old female 3 0 2 0 3, presents for Laparoscopic tubal ligation, hysteroscopy dilation and curettage, endometrial ablation on September 07, 2020 at 8:45. -- Anson is here for annual exam. She is on Depo currently for control. Does not wish for future childbearing. Tubal consent is signed. Scheduled for 09-07-20 Lap tubal, hysteroscopy D, ablation. LMP 06-29-20. Consents signed. Questions answered. Allergy and medication lists current. No changes in health since last visit. MEDICATIONS HISTORY: Current medications prescribed by our practice are: 1. medroxyprogesterone 150 mg/mL intramuscular suspension, q 3 months Patient is also takin. Zubsolv 5.7 mg-1.4 mg sublingual tablet, daily ALLERGIES: NKDA Infections - Chicken Pox Vaccine Illnesses - anxiety, mild seasonal allergies, occ panic attacks and Accidents - None Hospitalizations - Childbirth 01/22 R Hydronephrosis, Hx Pylo; Review of Systems: GENERAL - Denies fever, or chills SKIN - Denies skin changes EYES - Denies visual changes EARS - Denies difficulty hearing NOSE - Denies nasal congestion or bleeding MOUTH - Denies sore throat or difficulty swallowing NECK - Denies pain or swelling RESPIRATORY - Denies shortness of breath or wheezing CARDIOVASCULAR - Denies palpitations or chest pain GASTROINTESTINAL - Denies nausea, vomiting, diarrhea, constipation GENITOURINARY - Denies dysuria, frequency of urination, incontinence of urine MUSCULOSKELETAL - Denies joint or muscle pain NEUROLOGICAL - Denies localized numbness or weakness PSYCHIATRIC - Denies depression or anxiety ENDOCRINE - Denies heat or cold intolerance, weight loss or gain HEMATO-IMMUNOLOGIC - Denies excessive bleeding with cuts SOCIAL HISTORY: Alcohol Use - socially Smoking - Advised to quit and smoker x 8 y. Currently 2-3 cigs daily. Diet - balanced Diet, caffeine < 2 drinks per day, Likes ice and drinks flavoured water or gatorade. 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 Sexual Activity - > 9 sexual partners Residence - living w anatoliy's mother and kids Place of - [place] Hours Worked - 40 Spouse-Sig Other Name - Fredy LO Spouse-Sig Other Occupation - [employer] Spouse-Sig Other Phone No - [phone] Children Name(s) - Jitendra Julian 12' (jw), Timothy '16 (jw), So ('19) Control - DepoProvera FAMILY HISTORY: Family history of none. MENSTRUAL HISTORY: LMP Known?- Approximate-Month KnownAmount/Duration - 4-5 DA YS, LMP - 06/29/20, Age Onset Menarche - 16 PAST PREGNANCIES: Total Pregnancies - 5; Full Term Pregnancies - 3; Premature - 0; Abortions, Induced - 1; Abortions, Spontaneous - 1; Ectopics - 0; Multiple Births - 0; Living Children - 3 SURGICAL HISTORY: 1. none ; - PHYSICAL EXAM BP- 126/88 Sitting, Right arm, regular cuff Weight- 150.13676 lbs Height- 64 inch BMI:25.80 CONSTITUTIONAL - NAD, well nourished, and well developed SKIN - No rash, lesions, or ulcers HEENT - Normocephalic, PERRLA, EOMI NECK - No nodes, no nuchal rigidity and thyroid normal size and texture LYMPH NODES - Palpation of lymph nodes in neck and groins within normal limits ABDOMEN - Without hepatosplenomegaly, distention, masses, rebound, or guarding; normal bowel sounds; no hernias EXTREMITIES - No edema or calf tenderness NEUROLOGICAL - Cranial nerves II-XII grossly intact PSYCHIATRIC - A and O to time, place, person, mood and affect External Genitial Vagina - non-tender without lesions Urethra/Urethral Meatus - non-tender Bladder - non-tender Vagina - vaginal vidal are pink and moist without loss of rugae and no evidence of atrophy Cervix - without cervical motion tenderness and has normal size and features without evident lesions Uterus - 5-6 cm in size, mobile and nontender Adnexa - clear without masses or tenderness ASSESSMENT/PLAN: 1. Encounter For Preprocedural Examinations Pt with AUB and desires permanent sterilization. Scheduled for Hysteroscopy, D, Albation, Laparoscopic tubal ligation No medical changes since last visit. Had depo on last visit. Denies complications with anesthesia, no activity restrictions R/b/a of procedure discussed. All questions answered and consent was signed 2. Encounter For Sterilization Pt desires sterilization. r/b/a discussed including permanent. Pt states understanding and wishes to proceed Tubal consent signed For Laparoscopic tubal ligation. R/b/a discussed Currently on depo, to continue until surgery 3. Abnormal Uterine And Vaginal Bleeding, Unspecified Pt with irregular heavy periods off control. These periods are very painful and heavy that she misses work at times Pt done with childbearing. For tubal ligation. Discussed endometrial ablation r/b/a, pt desires endometrial ablation U/s today 7.7cm uterus otherwise wnl Labs wnl
[2020-09-07 07:28] LABS: Internal QC Validated? YES +Cl - CLEAR BKGD; Pregnancy, Urine Negative Negative
[2020-09-07] MEDS: Lactated Ringers 1,000 ML 120 ML IV ×2 (07:50→10:04)
[2020-09-07] MEDS: Cefotetan 2 GM in 0.9% NS 100 ML IV (08:22)
[2020-09-07 08:37] LABS: Prolactin 8.5 ng/mL
--- NOTE | 2020-09-07 09:38 | OP.PCM_ITS ---
Report of Operation Date of Procedure: 09/07/20 Pre-Operative Diagnosis: Abnormal uterine bleeding, desires permanent steriliza tion Post-Operative Diagnosis: Abnormal uterine bleeding, desires permanent sterilization Surgery/Procedure Performed:: Hysteroscopy, endometrial ablation via Sonia. Laparoscopic bilateral salpingectomy Description of Surgical Findings:: Surgeon: Guille Singh MD Anesthesia: General EBL: 10 cc Urine output: 600 cc IV fluids: 800 cc Complications: None Specimen: Bilateral fallopian tubes Findings: Hysteroscope with no uterine pathology noted. Sonia endometrial ablation cavity length 5 cm. Post procedure hysteroscope with no new pathology. Laparoscope revealed normal uterus, tubes, and ovaries. Consent: Patient with abnormal uterine bleeding and desires permanent sterilization in need of hysteroscopy, endometrial ablation, laparoscopic bilateral salpingectomy. Patient understands the risk of the procedure include but are not limited to visceral vascular injury, prolonged hospitalization, blood loss and need for transfusion, reoperation. Patient state understanding wish to proceed. All questions were answered and consent was signed. Procedure: Patient was brought back to the OR where general anesthesia found to be adequate. Patient was prepared and draped in a dorsolithotomy position with yellowfin stirrups. A weighted speculum placed in posterior aspect of vagina. Cervical dilators used to dilate cervix. Hysteroscope was inserted and above findings were noted. Sonia endometrial ablation device inserted under direct visualization, cavity length set to 5 cm. Sonia device safety test passed x2. 120 seconds of endometrial ablation performed. Device was removed. Hysteroscope was inserted and above findings were noted. Varies needle was inserted at the umbilicus, water safety test was passed, abdomen was insufflated. 5 mm midline infraumbilical fold incision was made and 5 mm trocar was inserted under direct visualization. Laparoscope was inserted and above findings were noted. Right lower quadrant 8 mm trocar was inserted under direct visualization. Left lower quadrant 5 mm trocar was inserted under direct visualization. Using atraumatic grasper and a LigaSure device the right fallopian tube was identified to the fimbriae and the mesosalpinx was cut and cauterized. Fallopian tube was cut and cauterized removed from the abdomen and sent to pathology. In similar fashion the left fallopian tube was identified to the fimbria and using a LigaSure device the mesosalpinx was cut and cauterized. Fallopian tube was cut and cauterized removed from abdominal cavity and sent to pathology. Good hemostasis was noted. Abdomen was desufflated and all trochars removed under direct visualization. Good hemostasis was noted. Laparoscopic incisions were closed in a subcutaneous fashion. All counts correct x2. Patient tolerated procedure well was brought to recovery stable condition. creosoting engineer: Piero Rodriguez
--- NOTE | 2020-09-07 09:44 | PCM.DC ---
Discharge Instructions Diet Discharge Diet: No restrictions Activity Discharge Activity: Return to Normal Activity, May Shower and - (No tub baths for 2 weeks) May resume sexual activity in: 4-6 weeks Lifting Restrictions: No lifting over 25 pounds for 2 to 3 weeks Dressing / Incision Call your doctor if your incision/area has: Continuous Slow Oozing, Sudden Increased Bleeding and Foul Smelling Discharge Call your doctor if you observe: Fever of 101 or Higher, Shortness of breath and Chest pain Follow Up Care Please Follow Up With: Guille Singh MD When: 2 weeks postoperatively Test Results: Test results from this visit will be discussed in further detail at your follow-up appointment, if applicable. Discharge Plan Admission Attending Provider: Guille Singh Primary Care Provider: Care Physician,Marychuy Primary Discharge Orders/Prescriptions Prescriptions: No Action Zubsolv 5.7-1.4 mg Tablet, Sublingual 1 tab SUBLINGUAL DAILY RF: 0 Disposition Discharge Orders: Discharge Patient (Routine); Ordered 09/07/20 Ordered By: Dr. Guille Singh
[2020-09-07] MEDS: oxyCODONE 5 MG Tablet PO (11:00)
== END 2020-09-07 12:34 ==
LOC: SDC 06:58 → AC 07:00
PROVIDERS: Anesthesiology; Referring Provider Obstetrics & Gynecology; Visit Provider Obstetrics & Gynecology
PROC: 0U5B8ZZ Destruction of Endometrium, Via Natural or Artificial Opening Endoscopic (ICD-10-PCS; CPT 58558; principal; 2020-09-07 08:25)
PROC: (CPT 58661; 2020-09-07 08:25)
DX: N92.0 Excessive and frequent menstruation with regular cycle (principal); Z30.2 Encounter for sterilization; F17.290 Nicotine dependence, other tobacco product, uncomplicated
CPT/HCPCS: 58563; 58661; 36415; 81025; 84146; 84443; 85027; 86850; 86900; 86901; 87635; 88302; C9803; J7120; U0005; J2405; U0003

== ENCOUNTER 2021-05-19 05:36 | Emergency (ER) | payer MEDICAID, SELFPAY ==
[2021-05-19 05:37] VITALS: BP 175/116; PULSE 72; RESP 15; TEMP 36.4; O2SAT 98; BMI 28.3
[2021-05-19 05:38] VITALS: BP 148/79; PULSE 72; RESP 15; TEMP 36.4; O2SAT 98
--- NOTE | 2021-05-19 05:53 | EDS_ITS ---
HPI HPI - Female History of Present Illness Chief Complaint: Flank Pain Informant: patient Narrative Narrative: Patient presents with dysuria frequency urgency and right flank pain. The right flank pain really started just this evening. But she has been having dysuria and she thought the urine smelled badly for about 5 days. No fevers chills sweats. No nausea or vomiting. Pain does radiate up to her right flank. She is eating and drinking normally. Bowel habits are normal. She has never had a kidney stone before but does have history of UTIs and has had kidney infections. No recent trauma. Nothing really makes symptoms better or worse. [facility] Medical History 39 weeks gestation of Alcohol use Anxiety Heartburn Hx of opioid abuse Palpitations PROM (premature rupture of membranes) (spontaneous vaginal delivery) Home Medications buprenorphine-naloxone [Zubsolv] 1 tab SUBLINGUAL DAILY 08/31/20 [History Last Taken Unknown] naproxen 500 mg PO BID #14 tab 05/19/21 [Rx Last Taken Unknown] phenazopyridine [Pyridium] 200 mg PO TID #9 tab 05/19/21 [Rx Last Taken Unknown] sulfamethoxazole-trimethoprim [Bactrim DS] 1 tab PO BID #20 tab 05/19/21 [Rx Last Taken Unknown] Allergy/AdvReac Type Severity Reaction Status Date / Time No Known Allergies Allergy Verified 08/31/20 10:07 Family History Father Cancer Brain Social History Smoking Status: Former smoker alcohol intake: never substance use type: does not use caffeine: Yes ROS ROS ED Constitutional Constitutional ED: Denies chills or fever(s) ENT ENT ED: Denies rhinorrhea Cardiovascular Cardiovascular: Denies chest pain Respiratory/Chest Respiratory/Chest: Denies cough or dyspnea Gastrointestinal Gastrointestinal: Reports other Details: Right flank area pain as in history of present illness. ; Denies constipation, diarrhea, melena, nausea or vomiting Genitourinary Genitourinary ED: Reports dysuria, urinary frequency and other Details: Stronger odor. See history of present illness. ; Denies hematuria Musculoskeletal Musculoskeletal: Denies myalgias Integumentary Denies rash Neurologic Neurologic: Denies headache(s) Psychiatric Psychiatric: Reports other; Denies anxiety or depression Endocrine Endocrinology: Denies polydipsia or polyuria Hematologic/Lymphatic Hematologic/Lymphatic: Denies easy bleeding or easy bruising Allergic/Immunologic Allergic/Immunologic ED: Denies urticaria EXAM Physical Exam Const Vital Signs: 05/19/21 05:37 05/19/21 05:38 05/19/21 05:51 Temperature 97.6 F L 97.6 F L Temperature Source Oral Oral Pulse Rate 72 72 Respiratory Rate 15 15 Respiratory Effort Normal Non-Labored Respiratory Pattern Normal Blood Pressure 175/116 H 148/79 H Blood Pressure Mean 135 102 Pulse Ox 98 98 Oxygen Delivery Method Room Air Room Air Positive well nourished and well developed General Appearance ED: well developed and NAD HEENT Reports moist mucous membranes Eyes General Eye ED: Negative for pale conjunctiva or scleral icterus Neck no JVD Chest Wall inspection of chest normal Resp normal respiratory effort and clear to auscultation bilaterally Cardio regular rate and regular rhythm GI normal to inspection, nondistended, normoactive bowel sounds, soft to palpation, non-tender and non-distended GI Narrative: Patient has pain in the right flank but her abdomen is actually quite benign. There is also no right lower quadrant tenderness. There is no rebound or guarding. Narrative: She did have some mild right CVA tenderness. Back/Spine General Back: CVA tenderness Neuro Sensorium / Orientation: alert; Negative for lethargic or stuporous Psych mental status grossly normal Skin no rashes or lesions noted MDM MDM MDM Narrative Medical decision making narrative: Patient's urine does show leukocyte esterase and slight increase in white cells. No red cells were seen but there was a small amount of occult blood. This is not a strong indication of UTI but it is consistent. Patient also has a change in odor frequency and dysuria and a history of UTIs. I will send a culture but because of her symptoms we will start treatment. She has never had a kidney stone. She developed flank pain slowly over a 5-day period. I do not think this warrants a CT scan of the abdomen at this time. If the pain becomes worse, fevers, nausea vomiting or other symptoms we may need to do this but I would prefer to avoid irradiating her if we can. She is comfortable with this plan and understands reasons to return. Lab Data Attestation: I reviewed the patient's lab results. Labs: Laboratory Results - last 24 hr 05/19/21 05:42 Urine Color Yellow Urine Clarity Clear Urine pH 8.0 Ur Specific [place] 1.015 Urine Protein 15 H Urine Glucose (UA) Normal Urine Ketones Negative Urine Occult Blood 50 H Urine Nitrite Negative Urine Bilirubin Negative Urine Urobilinogen Normal Ur Leukocyte Esterase 100 H Discharge Plan Triage Chief Complaint: Flank Pain ED Provider: Robbi Johnson Dx/Rx/DC Orders Clinical Impression: UTI (urinary tract infection), Pyelonephritis Instructions: ED Pyelonephritis, Female (Adult) Prescriptions: New phenazopyridine [Pyridium] 200 MG tablet 200 mg PO TID Qty: 9 RF: 0 naproxen 500 MG tablet 500 mg PO BID Qty: 14 RF: 0 sulfamethoxazole-trimethoprim [Bactrim DS] 800-160 mg tablet 1 tab PO BID Qty: 20 RF: 0 No Action Zubsolv 5.7-1.4 mg Tablet, Sublingual 1 tab SUBLINGUAL DAILY RF: 0 Primary Care Provider: Care Physician,No Primary Referrals: Katty Earl MD [STAFF PHYSICIAN] - 3-5 Days if not improving Care Physician,No Primary [Primary Care Provider] - Disposition Disposition: Home, Self Care
[2021-05-19 05:58] LABS: Mucous, Urine 0 SEEN /hpf (<or=2+); Squamous Epithelial Cells - UA 0 SEEN /hpf (5-10)
[2021-05-19 06:08] LABS: Color, Urine Yellow (Yellow); Glucose, Dipstick Normal (Normal); Ketone-Dipstick Negative (Negative); Leukocyte Esterase-Dipstick 100 /ul (Negative); Nitrite-Dipstick Negative (Negative); Occult Blood-Urine 50 /ul (Negative); Protein-Dipstick 15 mg/dl (Negative); Specific Gravity, Urine 1.015 (1.002-1.030); Urine Bilirubin Dipstick Negative (Negative); Urine Clarity Clear (Clear); Urine Urobilinogen Normal (Normal)
[2021-05-19 06:10] LABS: Internal QC Validated? YES +Cl - CLEAR BKGD; Pregnancy, Urine Negative Negative
[2021-05-19 06:36] LABS: Bacteria RARE /hpf (None Seen); Red Blood Cells-Urine 0-5 SEEN /hpf (0-5); White Blood Cells 5-10 SEEN /hpf (0-5)
[2021-05-19] MEDS: Naproxen 250 MG Tablet 500 MG PO (07:13)
[2021-05-19] MEDS: Smz/Tmp Ds Tablet 1 TABLET PO (07:14)
[2021-05-19 07:21] VITALS: BP 124/69; PULSE 74; RESP 16; TEMP 36.6; O2SAT 98
== END 2021-05-19 07:22 | disposition home or self-care (01) ==
PROVIDERS: Emergency Provider Emergency Medicine; Visit Provider Emergency Medicine
DX: N12 Tubulo-interstitial nephritis, not specified as acute or chronic (principal); Z87.891 Personal history of nicotine dependence
CPT/HCPCS: 81001; 81025; 87077; 87086; 87088; 87186; 99283

== ENCOUNTER 2023-01-21 18:59 | Inpatient (IN) | payer MEDICAID, SELFPAY ==
[2023-01-21 19:00] VITALS: BP 125/90; PULSE 88; RESP 18; TEMP 36.1; O2SAT 100; BMI 27.1
--- NOTE | 2023-01-21 19:29 | EDS_ITS ---
HPI History of Present Illness Chief Complaint: Nausea/Vomiting/Diarrhea Informant: patient Onset/Context/Timing Onset: Today Narrative Narrative: Patient states she started feeling nauseated during the middle the night. Today she has had nausea, vomiting, and diarrhea. Generalized abdominal pain and cramping. No fever has been noted. She is not bringing up any blood in her vomitus or with her stool. [facility] Medical History (Updated 01/21/23 @ 22:[address] Rosemary Patiño MD) Alcohol use Anxiety Heartburn Hx of opioid abuse Palpitations PROM (premature rupture of membranes) (spontaneous vaginal delivery) Home Medications buprenorphine 5.7 mg-naloxone 1.4 mg sublingual tablet (Zubsolv) 1 tab sublingual DAILY 08/31/20 [History Last Taken Unknown] Allergy/AdvReac Type Severity Reaction Status Date / Time No Known Allergies Allergy Verified 01/21/23 19:01 Family History Father Cancer Brain Social History Smoking Status: Former smoker alcohol intake: never substance use type: does not use caffeine: Yes ROS ROS ED Constitutional Constitutional ED: Denies chills or fever(s) Eyes Eyes: Denies discharge from eye(s) ENT ENT ED: Denies discharge from eye(s), rhinorrhea or sore throat Cardiovascular Cardiovascular: Denies chest pain or palpitations Respiratory/Chest Respiratory/Chest: Denies cough or dyspnea Gastrointestinal Gastrointestinal: Reports abdominal pain, diarrhea, nausea and vomiting Genitourinary Genitourinary ED: Denies dysuria Musculoskeletal Musculoskeletal: Reports myalgias; Denies back pain or extremity pain Integumentary Denies Abrasions or rash Neurologic Neurologic: Reports other Details: Dizziness ; Denies headache(s) or weakness Psychiatric Psychiatric: Denies anxiety or depression Allergic/Immunologic Allergic/Immunologic ED: Denies lip swelling or urticaria EXAM Physical Exam Const Vital Signs: 01/21/23 19:00 01/21/23 20:34 01/21/23 21:38 Temperature 97 F L Temperature Source Temporal Pulse Rate 88 93 95 Respiratory Rate 18 16 16 Blood Pressure 125/90 H 151/110 H 155/115 H Blood Pressure Mean 101 123 128 Pulse Ox 100 100 100 Oxygen Delivery Method Room Air Room Air 01/21/23 21:49 Temperature Temperature Source Pulse Rate 103 H Respiratory Rate 16 Blood Pressure 145/99 H Blood Pressure Mean 114 Pulse Ox 100 Oxygen Delivery Method Room Air Positive well nourished and well developed General Appearance ED: well developed HEENT Reports normocephalic and head/scalp atraumatic Eyes PERRL and EOMs intact bilaterally Neck supple Chest Wall inspection of chest normal and palpation of chest normal Resp normal respiratory effort and clear to auscultation bilaterally Cardio regular rate and regular rhythm GI GI Narrative: Abdomen soft with mild diffuse tenderness palpation. No guarding or rebound. Hypoactive bowel sounds. Palpation: soft Extremity normal to inspection Neuro oriented x3 and no sensory deficits noted Sensorium / Orientation: alert Motor Exam: strength 5/5 throughout Psych mental status grossly normal Skin no rashes or lesions noted MDM MDM MDM Narrative Medical decision making narrative: IV line established. Patient given morphine and Zofran. Labwork obtained to evaluate for leukocytosis, anemia, and electrolyte derangement. Urinalysis obtained to evaluate for infection/hematuria. Lab Data Attestation: I reviewed the patient's lab results. Labs: Laboratory Results - last 24 hr 01/21/23 01/21/23 19:30 20:39 WBC 20.7 H RBC 4.82 Hgb 16.0 H Hct 45.4 MCV 94.2 MCH 33.2 H MCHC 35.2 RDW Std Deviation 45.0 H RDW Coeff of Tyra 13.2 Plt Count 243 MPV 10.1 Immature Gran % (Auto) 0.500 Neut % (Auto) 88.9 H Lymph % (Auto) 7.6 L [place] % (Auto) 2.5 Eos % (Auto) 0.0 Baso % (Auto) 0.5 Absolute Neuts (auto) 18.4 H Absolute Lymphs (auto) 1.56 Nucleated RBC % 0 Sodium 138 Potassium 2.5 L* Chloride 98 Carbon Dioxide 26.0 Anion Gap 14 BUN 8 Creatinine 0.75 Estim Creat Clear Calc 94.71 Est GFR (MDRD) Af Amer 116 Est GFR (MDRD) Non-Af 96 BUN/Creatinine Ratio 10.7 Glucose 181 H Calcium 8.3 L Total Bilirubin 1.00 Direct Bilirubin 0.39 H AST 151 H ALT 77 H Alkaline Phosphatase 187 H Total Protein 7.3 Albumin 3.7 Globulin 3.6 Lipase 1606 H Urine Color Yellow Urine Clarity Clear Urine pH 6.0 Ur Specific [place] 1.015 Urine Protein 30 H Urine Glucose (UA) Normal Urine Ketones 5 H Urine Occult Blood 25 H Urine Nitrite Negative Urine Bilirubin Negative Urine Urobilinogen Normal Ur Leukocyte Esterase Negative Urine RBC 0 SEEN Urine WBC 0-5 SEEN Ur Squamous Epith Cells 0-5 SEEN Urine Bacteria 0 SEEN Urine Mucus 0 SEEN Radiography Diagnostic Testing: Clinical Impression(s) from Imaging Studies Abdomen/Pelvis CT 01/21/23 21:08 IMPRESSION: Pancreatitis without obvious complication. Marked fatty infiltration of the liver with likely associated hepatomegaly. Electronically Signed: Esa Lyons MD at 22:10 EDT , Treatment and Re-Evaluation :: CBC was a white count of 20.7 with 89% neutrophils. Hemoglobin is concentrated at 16. Chemistry studies reveal potassium of 2.5. Renal function is normal. LFTs reveal a direct bilirubin 0.39, total bilirubin of 1.0. Alk phos is 187. ALT is 77 and AST is 151. Lipase is elevated at 1606. Urinalysis reveals 5 ketones with no evidence of acute infection. CT scan of the abdomen and pelvis with IV contrast reveals evidence of pancreatitis. Potassium has been replaced via IV. Patient has required repeat doses of morphine and I did give her a dose of Toradol as well. She is on Zubsolv which is largely blocking her opioid receptors. I will also give her a dose of Phenergan at this time for continued nausea. She denies history of pancreatitis. She does admit to occasional alcohol use. Dr. Bella did review the patient's CT scan. She feels that patient will likely need a ultrasound of her gallbladder at some point, but it is reasonable to let the inflammation from the increase resolve somewhat first. I will speak with the hospitalist regarding admission. Discharge Plan Triage Chief Complaint: Nausea/Vomiting/Diarrhea ED Provider: Rosemary Patiño Dx/Rx/DC Orders Clinical Impression: Vomiting, Acute pancreatitis, Hypokalemia Prescriptions: No Action Zubsolv 5.7-1.4 mg Tablet, Sublingual 1 tab SUBLINGUAL DAILY Primary Care Provider: [place] Physician,No Primary Referrals: Care Physician,No Primary [Primary Care Provider] - Disposition Disposition: Acute Care Hospital [facility]
[2023-01-21] MEDS: 0.9% Normal Saline (1000mL) 1,000 ML 1000 ML IV (19:38)
[2023-01-21] MEDS: Morphine 4 MG/ML Syringe IV (19:40)
[2023-01-21] MEDS: Ondansetron 4 MG/2 ML Vial IV (19:40)
[2023-01-21 19:47] LABS: Absolute Lymphocyte Count 1.56 X10^3/uL (0.83-4.51); Absolute Neutrophil Count 18.4 X10^3/uL (2.0-7.7); Basophil# 0.11 X10^3/uL; Basophil% 0.5 % (0-1); Eosinophil# 0.01 X10^3/uL; Hematocrit 45.4 % (37-47); Lymphocyte # 1.56 X10^3/ul (0.83-4.51); Lymphocyte % 7.6 % (19-41); Mean Corp Hgb Conc 35.2 g/dL (32-36); Mean Corpuscular Hgb 33.2 pg (27.0-32.0); Mean Corpuscular Volume 94.2 fL (81-99); Mean Platelet Vol. 10.1 fl (6.2-12.0); Monocyte# 0.52 X10^3/uL; Monocyte% 2.5 % (0-10); NRBC Flagged by Analyzer 0 % (0-5); Neutrophil # 18.35 X10^3/uL (2.7-7.7); Neutrophil % 88.9 % (47-70); Platelet Count 243 K/mm3 (150-450); RBC Distribution Width CV 13.2 % (11.6-14.6); Red Blood Count 4.82 M/mm3 (4.2-5.4); White Blood Count 20.7 K/mm3 (4.4-11.0)
[2023-01-21 20:10] LABS: AST(SGOT) 151 U/L (15-37); Alanine Aminotransfer ALT/SGPT 77 U/L (13-56); Albumin, Serum 3.7 g/dL (3.2-5.0); Alkaline Phosphatase 187 U/L (45-117); Anion Gap 14 (5-15); BUN 8 mg/dL (7-18); BUN/Creat Ratio 10.7 RATIO (10-20); Bilirubin, Direct 0.39 mg/dL (0.00-0.30); Calcium,Total 8.3 mg/dL (8.5-10.1); Chloride 98 mmol/L (98-107); Creatinine, Serum 0.75 mg/dL (0.55-1.02); EST Glomerular Filtration Rate 96 mL/min (>60); Est Glom Filt Rate - Afr Amer 116 mL/min (>60); Estimated Creatinine Clearance 94.71 ml/min; Globulin 3.6 g/dL (2.2-4.2); Glucose 181 mg/dL (74-106); Potassium 2.5 mmol/L (3.5-5.1); Protein, Total 7.3 g/dL (6.4-8.2); Sodium Level 138 mmol/L (136-145)
[2023-01-21 20:13] LABS: Lipase 1606 U/L (13-75)
[2023-01-21] MEDS: Potassium Chloride 10mEq/100mL 10 MEQ/100 ML IV.SOLN. 100 MEQ IV BOLUS ×4 (20:30→23:51)
[2023-01-21] MEDS: 0.9% Normal Saline (1000mL) 1,000 ML 150 ML IV (20:30)
[2023-01-21 20:34] VITALS: BP 151/110; PULSE 93; RESP 16; O2SAT 100
[2023-01-21 20:44] LABS: Bacteria 0 SEEN /hpf (None Seen); Mucous, Urine 0 SEEN /hpf (<or=2+); Red Blood Cells-Urine 0 SEEN /hpf (0-5)
[2023-01-21] MEDS: HYDROmorphone 0.5 MG/0.5 ML SYRINGE IV ×2 (20:45→22:44)
[2023-01-21] MEDS: Ketorolac 30 MG/ML Syringe IV (20:45)
[2023-01-21 20:46] LABS: Color, Urine Yellow (Yellow); Glucose, Dipstick Normal (Normal); Ketone-Dipstick 5 mg/dl (Negative); Leukocyte Esterase-Dipstick Negative /ul (Negative); Nitrite-Dipstick Negative (Negative); Occult Blood-Urine 25 /ul (Negative); Protein-Dipstick 30 mg/dl (Negative); Specific Gravity, Urine 1.015 (1.002-1.030); Urine Bilirubin Dipstick Negative (Negative); Urine Clarity Clear (Clear); Urine Urobilinogen Normal (Normal)
[2023-01-21 21:08] LABS: Squamous Epithelial Cells - UA 0-5 SEEN /hpf (5-10); White Blood Cells 0-5 SEEN /hpf (0-5)
--- NOTE | 2023-01-21 21:08 | CT_ITS ---
INDICATION: pancreatitis COMPARISON: None. IV Contrast dosage and agent: 94 cc Isovue-300 IV. RADIATION DOSAGE (If Supplied By Facility): CTDIvol = ( 11.92 ) mGy, DLP = ( 788.86 ) mGycm A radiation dose optimization technique was used for this scan. FINDINGS: Contrast enhanced serial CT axial images through the abdomen and pelvis with coronal and sagittal reformatted series. PANCREAS: Significant diffuse peripancreatic fat stranding with streaky fluid consistent with acute pancreatitis. Fluid tracks into the pelvis. Parenchyma appears to enhance fairly uniformly. No upper abdominal vascular filling defects appreciated. No focal organized fluid collection to suggest abscess. BOWEL/MESENTERY: No dilated bowel loops. No free air. GALLBLADDER: No definite pericholecystic fat stranding. LIVER/STOMACH: Marked fatty infiltration of the liver. Likely associated hepatomegaly measuring up to 21 cm in the craniocaudal dimension. APPENDIX: Normal caliber appendix. URINARY COLLECTING SYSTEM/ KIDNEYS: No obstructing ureteral calculus. No significant renal parenchymal abnormality. LUNG BASES: Unremarkable. BONES: Unremarkable for age. CT/Abdomen/Pelvis W IV Cont ONLY IMPRESSION: Pancreatitis without obvious complication. Marked fatty infiltration of the liver with likely associated hepatomegaly. Electronically Signed: Esa Lyons MD at 22:10 EDT ,
[2023-01-21 21:38] VITALS: BP 155/115; PULSE 95; RESP 16; O2SAT 100
[2023-01-21 21:49] VITALS: BP 145/99; PULSE 103; RESP 16; O2SAT 100
--- NOTE | 2023-01-21 22:37 | HP.PCM.HOS_ITS ---
[facility] - General General Date of Admission: 01/21/23 Date of Service: 01/21/23 Chief Complaint: Abdominal pain, nausea and vomiting and diarrhea since yesterday night HPI Narrative MARICARMEN HARRISON, is a 32 F who came to the ED for nausea vomiting diarrhea and abdominal pain with crampings since yesterday night. Patient stated her abdominal pain is mainly upper abdomen which moves from right to left. She states her pain is constant severe 7-10/10 quality but denies radiation to the back. She denies fever or chills. She states whenever she tries to drink or eat she starts throwing up and also has watery liquid diarrhea. Denies hematem esis, melena or hematochezia. No previous history of similar abdominal pain. In ED, vitals shows mild tachycardia, heart rate 103/min blood pressure in normal range. Patient has significant leukocytosis. Predominantly neutrophilia. Severe hypokalemia. The patient had CT abdomen which shows pancreatitis with diffuse peripancreatic fat stranding and a streaky fluid consistent with acute pancreatitis. Fluid tracking into the pelvis. No focal fluid collection or abscess. No dilated bowel loops. Mild fatty infiltration of the liver with hepatomegaly. No obstructing urinary calculus. Lipase is elevated. Patient is started on IV fluid and admitted with a diagnosis of acute pancreatitis. Patient states she drinks alcohol/beer, couple beers at a time about 3 times per week. Denies marijuana use or other substance use. Patient has history of opioid use in the past and is on Suboxone as an outpatient. She is in remission for chronic opioid use disorder. [facility] Medical History Alcohol use Anxiety Heartburn Hx of opioid abuse Palpitations PROM (premature rupture of membranes) (spontaneous vaginal delivery) Home Medications buprenorphine 5.7 mg-naloxone 1.4 mg sublingual tablet (Zubsolv) 1 tab sublingual DAILY 08/31/20 [History Last Taken Unknown] Allergy/AdvReac Type Severity Reaction Status Date / Time No Known Allergies Allergy Verified 01/21/23 19:01 Family History Father Cancer Brain Social History Smoking Status: Former smoker alcohol intake: never substance use type: does not use caffeine: Yes ROS ROS Narrative Constitutional: Abdominal pain. No fever. Mild distress. HEENT: Reports systems reviewed and no addt'l complaints, except as documented Respiratory/Chest: No acute shortness of breath or respiratory distress or wheezing. CVS: No chest pain or pressure. Gastrointestinal: As described in HPI. Genitourinary: Denies burning urination or new urinary tract symptoms Musculoskeletal: Denies acute joint pain or limited range of motion. No acute injury Neurologic: Denies seizure-like symptoms. skin: No ulcer. No rash Endocrinology: Reports systems reviewed and no addt'l complaints, except as documented Hematologic/Lymphatic: Reports systems reviewed and no addt'l complaints, except as documented Rest 14 ROS are negative except as mentioned in HPI Vital Signs Vital Signs Vital Signs: 01/21/23 19:00 01/21/23 20:34 01/21/23 21:38 Temperature 97 F L Temperature Source Temporal Pulse Rate 88 93 95 Respiratory Rate 18 16 16 Blood Pressure 125/90 H 151/110 H 155/115 H Blood Pressure Mean 101 123 128 Pulse Ox 100 100 100 Oxygen Delivery Method Room Air Room Air 01/21/23 21:49 Temperature Temperature Source Pulse Rate 103 H Respiratory Rate 16 Blood Pressure 145/99 H Blood Pressure Mean 114 Pulse Ox 100 Oxygen Delivery Method Room Air Weight Weight: 158 lb Body Mass Index (BMI) 27.1 Physical Exam Narrative General: Alert, Oriented x3, Cooperative HEENT: Atraumatic, PERRLA, EOMI, Normocephalic Oral: Oral mucosa dry. No Gingival or Mucosal Lesions/ Ulcerations Neck: Supple, No JVD, Negative Carotid Bruits Lungs: Air entry diminished in bilateral lung bases. No crepitation/rhonchi Cardiovascular: Regular rate, Regular Rhythm, Normal S1, Normal S2, No murmurs Abdomen: Bowel Sounds Present, Soft, tenderness present on upper abdomen predominantly in epigastrium. No significant abdominal distention. No palpable mass. : No renal angle tenderness. No suprapubic tenderness. Extremities: No edema, Capillary Refill Less than 3 Seconds Skin: No rashes, No breakdown Musculoskeletal: No Tenderness to Palpation of Joints or Extremities Neurological: Cranial nerves II-XII grossly intact, DTR 2+/4. No acute focal neurological deficit. Psych/Mental Status: Normal Affect, Appropriate. Results Lab / Micro Data 10/17/23 19:30 01/21/23 19:30 Labs: Laboratory Results - last 24 hr 01/21/23 19:30: WBC 20.7 H, RBC 4.82, Hgb 16.0 H, Hct 45.4, MCV 94.2, MCH 33.2 H , MCHC 35.2, RDW Std Deviation 45.0 H, RDW Coeff of Tyra 13.2, Plt Count 243, MPV 10.1, Immature Gran % (Auto) 0.500, Neut % (Auto) 88.9 H, Lymph % (Auto) 7.6 L, [place] % (Auto) 2.5, Eos % (Auto) 0.0, Baso % (Auto) 0.5, Absolute Neuts (auto) 18.4 H, Absolute Lymphs (auto) 1.56, Nucleated RBC % 0, Sodium 138, Potassium 2.5 L*, Chloride 98, Carbon Dioxide 26.0, Anion Gap 14, BUN 8, Creatinine 0.75, Estim Creat Clear Calc 94.71, Est GFR (MDRD) Af Amer 116, Est GFR (MDRD) Non-Af 96, BUN/Creatinine Ratio 10.7, Glucose 181 H, Calcium 8.3 L, Total Bilirubin 1.00, Direct Bilirubin 0.39 H, AST 151 H, ALT 77 H, Alkaline Phosphatase 187 H, Total Protein 7.3, Albumin 3.7, Globulin 3.6, Lipase 1606 H 01/21/23 20:39: Urine Color Yellow, Urine Clarity Clear, Urine pH 6.0, Ur Specific [place] 1.015, Urine Protein 30 H, Urine Glucose (UA) Normal, Urine Ketones 5 H, Urine Occult Blood 25 H, Urine Nitrite Negative, Urine Bilirubin Negative, Urine Urobilinogen Normal, Ur Leukocyte Esterase Negative, Urine RBC 0 SEEN, Urine WBC 0-5 SEEN, Ur Squamous Epith Cells 0-5 SEEN, Urine Bacteria 0 SEEN, Urine Mucus 0 SEEN Radiology Impression Abdomen/Pelvis CT 01/21/23 21:08 IMPRESSION: Pancreatitis without obvious complication. Marked fatty infiltration of the liver with likely associated hepatomegaly. Electronically Signed: Esa Lyons MD at 22:10 EDT , Assessment & Plan Assessment/Plan (1) Acute pancreatitis: QUALIFIERS: Pancreatitis type: unspecified pancreatitis type Acute pancreatitis complication: no infection or necrosis Qualified Code(s): K85.90 - Acute pancreatitis without necrosis or infection, unspecified (2) Hypokalemia: PLAN: Plan 32-year-old female being admitted for acute pancreatitis. 1. Acute interstitial pancreatitis: Patient is being admitted to [facility] floor. Lipase 1600. Denies prior history of pancreatitis, liver or GB disease. Exact etiology unclear but but patient states she drinks couple. About [address] Bueno discussed with About the thumb when she called for different patient and she suggested she will need RUQ ultrasound but after few days when abdominal gas subsides but not tomorrow. Hematocrit 45%. BUNs/creatinine ratio 10.7. Patient started on IV fluid normal saline after bolus. Continue IV fluid normal saline 200 mL/h for about 1 day and then titrate as per urine output. Started NPO. Serum alcohol, GGT and U tox ordered. Liver chemistry shows elevated AST and ALT and the ratio of 2 is to 1. Alkaline phosphatase elevated but total bilirubin normal. 2. Chronic alcohol use disorder: Patient currently not in withdrawal. Rest as mentioned above. 3. History of opioid use disorder in remission: Patient on buprenorphine as an outpatient. 4.History of abnormal uterine bleeding with hysteroscopy endometrial ablation and laparoscopic bilateral salpingo-oophorectomy in [place] [address] Guille holley DVT Prophylaxis, low risk. Early ambulation encouraged. Full code. Laboratory Results 01/21/23 19:30: WBC 20.7 H, RBC 4.82, Hgb 16.0 H, Hct 45.4, MCV 94.2, MCH 33.2 H , MCHC 35.2, RDW Std Deviation 45.0 H, RDW Coeff of Tyra 13.2, Plt Count 243, MPV 10.1, Immature Gran % (Auto) 0.500, Neut % (Auto) 88.9 H, Lymph % (Auto) 7.6 L, [place] % (Auto) 2.5, Eos % (Auto) 0.0, Baso % (Auto) 0.5, Absolute Neuts (auto) 18.4 H, Absolute Lymphs (auto) 1.56, Nucleated RBC % 0, Sodium 138, Potassium 2.5 L*, Chloride 98, Carbon Dioxide 26.0, Anion Gap 14, BUN 8, Creatinine 0.75, Estim Creat Clear Calc 94.71, Est GFR (MDRD) Af Amer 116, Est GFR (MDRD) Non-Af 96, BUN/Creatinine Ratio 10.7, Glucose 181 H, Calcium 8.3 L, Total Bilirubin 1.00, Direct Bilirubin 0.39 H, AST 151 H, ALT 77 H, Alkaline Phosphatase 187 H, Total Protein 7.3, Albumin 3.7, Globulin 3.6, Lipase 1606 H 01/21/23 20:39: Urine Color Yellow, Urine Clarity Clear, Urine pH 6.0, Ur Specific [place] 1.015, Urine Protein 30 H, Urine Glucose (UA) Normal, Urine Ketones 5 H, Urine Occult Blood 25 H, Urine Nitrite Negative, Urine Bilirubin Negative, Urine Urobilinogen Normal, Ur Leukocyte Esterase Negative, Urine RBC 0 SEEN, Urine WBC 0-5 SEEN, Ur Squamous Epith Cells 0-5 SEEN, Urine Bacteria 0 SEEN, Urine Mucus 0 SEEN Clinical Impression(s) from Imaging Studies Abdomen/Pelvis CT 01/21/23 21:08 IMPRESSION: Pancreatitis without obvious complication. Marked fatty infiltration of the liver with likely associated hepatomegaly. Charges/Coding Visit Charges Inpatient E&M: 49921 Init Hosp L3
[2023-01-21] MEDS: proMETHazine 25 MG/ML Syringe 12.5 MG IM (22:45)
[2023-01-21 23:21] VITALS: BP 143/98; PULSE 112; RESP 18; TEMP 36.7; O2SAT 100
[2023-01-21 23:22] VITALS: BP 143/98; PULSE 112; RESP 18; TEMP 36.6; O2SAT 100
[2023-01-22] VITALS (11 sets, daily range): BP systolic 151–187; BP diastolic 108–139; PULSE 102–152; RESP 14–20; TEMP 36.4–37.6; O2SAT 95–100; BMI 27.1
[2023-01-22 00:22] LABS: Magnesium 1.2 mg/dL (1.6-2.6); Phosphorus 3.2 mg/dL (2.5-4.9)
[2023-01-22 00:27] LABS: GGTP 850 U/L (5-55)
[2023-01-22] MEDS: HYDROmorphone 0.5 MG/0.5 ML SYRINGE IV ×2 (01:02→05:43)
[2023-01-22] MEDS: 0.9% Normal Saline (1000mL) 1,000 ML 200 ML IV ×2 (01:03→05:55)
[2023-01-22] MEDS: proCHLORPERazine 10 MG/2 ML Vial 5 MG IV (01:11)
[2023-01-22 01:16] LABS: Alcohol, Blood (Medical)-Serum < 3.0 mg/dL
[2023-01-22] MEDS: Ondansetron 4 MG/2 ML Vial IV (05:43)
[2023-01-22] MEDS: 0.9% Saline Lock 10 ML Syringe IV (05:44)
[2023-01-22 06:48] LABS: Absolute Lymphocyte Count 0.79 X10^3/uL (0.83-4.51); Absolute Neutrophil Count 11.6 X10^3/uL (2.0-7.7); Basophil# 0.02 X10^3/uL; Basophil% 0.2 % (0-1); Hematocrit 42.2 % (37-47); Lymphocyte # 0.79 X10^3/ul (0.83-4.51); Lymphocyte % 6.1 % (19-41); Mean Corp Hgb Conc 35.5 g/dL (32-36); Mean Corpuscular Hgb 33.9 pg (27.0-32.0); Mean Corpuscular Volume 95.5 fL (81-99); Mean Platelet Vol. 10.2 fl (6.2-12.0); Monocyte# 0.43 X10^3/uL; Monocyte% 3.3 % (0-10); NRBC Flagged by Analyzer 0 % (0-5); Neutrophil # 11.58 X10^3/uL (2.7-7.7); Neutrophil % 89.9 % (47-70); Platelet Count 158 K/mm3 (150-450); RBC Distribution Width CV 13.7 % (11.6-14.6); RBC Distribution Width SD 48.1 fl (35.1-43.9); Red Blood Count 4.42 M/mm3 (4.2-5.4); White Blood Count 12.9 K/mm3 (4.4-11.0)
[2023-01-22 07:37] LABS: AST(SGOT) 101 U/L (15-37); Alanine Aminotransfer ALT/SGPT 54 U/L (13-56); Albumin, Serum 3.1 g/dL (3.2-5.0); Alkaline Phosphatase 143 U/L (45-117); Anion Gap 8 (5-15); BUN 7 mg/dL (7-18); BUN/Creat Ratio 10.2 RATIO (10-20); Calcium,Total 6.8 mg/dL (8.5-10.1); Chloride 107 mmol/L (98-107); Creatinine, Serum 0.69 mg/dL (0.55-1.02); EST Glomerular Filtration Rate 107 mL/min (>60); Est Glom Filt Rate - Afr Amer 129 mL/min (>60); Estimated Creatinine Clearance 102.95 ml/min; Glucose 169 mg/dL (74-106); Potassium 3.6 mmol/L (3.5-5.1); Protein, Total 6.1 g/dL (6.4-8.2); Sodium Level 140 mmol/L (136-145)
[2023-01-22] MEDS: Acetaminophen 325 MG Tablet 650 MG PO ×2 (10:16→20:13)
[2023-01-22] MEDS: Pantoprazole Sodium 40 MG Tablet PO (10:17)
--- NOTE | 2023-01-22 10:50 | CASEMGMT ---
Addendum entered by Tarah Aguilar 01/22/23 13:49: PCP list created by case planner provided to patient. Original Note: RN?CM?ENVIRONMENTAL MARKETING REPRESENTATIVE?CM?to room to meet with patient for initial transition planning/care coordination?assessment.?RN?CM?introduced self and role at [facility].? Pt voices understanding and consents to?assessment?at this time.? Pt sitting on edge of bed in no distress at this time.? Pt is A/O at this time and answers all questions appropriately.?? Care providers, pharmacy, and demographics verified/updated at this time. PCP: No PCP. Will provide list. Specialists: Pt had appt to see new BE[facility] MAKER in [place] this afternoon and states she will call and cancel it. [facility] Insurance: [employer] Prescription Benefit:?Yes Living Will/HPOA:?Pt does not currently have LW/HCPOA and declines info at this time.? Pt made aware that she can contact as an out-pt and make appt in the future if she decides she would like to talk with someone about this or would like to utilize [facility] social work for advanced directive completion.? Given Digital Media Strategist Rac card with information and contact number. Pt expresses understanding.? LNOK: Mom, Khari. Sig other, Fredy. Living Arrangements: Lives w/sig other, Fredy, and 3 children. Independent. Works full-time. Transportation:?Pt states drives self and states no transportation concerns at this time.?Fredy also drives. DME: ? Denies using any DME and denies needs.? HHC/SNF: No hx of either. Pt wishes to return home and states has no concerns with going home at time of discharge.? CM?to follow for any discharge planning/needs.? Pt voices no concerns/needs at this time.? Advised pt to ask for?CM?if any questions/concerns/needs arise.? Voices understanding. PLAN:??Home Gretchen FREITASN?RN?CM
--- NOTE | 2023-01-22 11:40 | CASEMGMT ---
Discharge Planning PCP list created and given to RN CM. Dalia Mijares, Discharge Planning Asst.
[2023-01-22] MEDS: clonazePAM 0.5 MG Tablet PO ×2 (11:47→20:13)
[2023-01-22] MEDS: Lisinopril 20 MG Tablet PO (15:50)
[2023-01-22] MEDS: oxyCODONE 5 MG Tablet PO ×2 (15:51→23:06)
[2023-01-22] MEDS: amLODIPine 5 MG Tablet PO (15:51)
--- NOTE | 2023-01-22 17:18 | PCM.PN.HOSP ---
Reason for Visit Reason for Visit: Diagnoses Hypokalemia (01/21/23) Acute pancreatitis without necrosis or infection, unspecified (01/21/23) Subjective Subjective Patient was seen and examined today, she has less abdominal pain overall, we lost IV access today on the patient and I have elected to have the patient push fluids and reevaluate her tomorrow. Patient's blood pressure has been elevated today, she has a history of hypertension in her family but is never been diagnosed with hypertension herself, she does not follow-up with an attending physician usually however. I have decided to start her on blood pressure medications today. Objective Data Objective Data Vital Signs: Vital Signs Temp Pulse Resp BP Pulse Ox O2 Del Method 99.7 F H 110 H 18 177/119 H 98 Room Air 01/22/23 15:47 01/22/23 15:47 01/22/23 15:47 01/22/23 15:47 01/22/23 15:47 01/22/23 15:47 Oxygen Delivery Method Room Air Weight: 71.6 kg Body Mass Index (BMI) 27.1 Intake & Output: Intake and Output for Last 24 Hours 01/20/23 01/21/23 01/22/23 23:59 23:59 23:59 Intake Total 1300 / 1300 3024.16 / 3024.16 Balance 1300 / 1300 3024.16 / 3024.16 Lab / Micro Data 01/22/23 06:25 01/22/23 06:25 Labs: Laboratory Results - last 24 hr 01/21/23 19:30: WBC 20.7 H, RBC 4.82, Hgb 16.0 H, Hct 45.4, MCV 94.2, MCH 33.2 H, MCHC 35.2, RDW Std Deviation 45.0 H, RDW Coeff of Tyra 13.2, Plt Count 243, MPV 10.1, Immature Gran % (Auto) 0.500, Neut % (Auto) 88.9 H, Lymph % (Auto) 7.6 L, [place] % (Auto) 2.5, Eos % (Auto) 0.0, Baso % (Auto) 0.5, Absolute Neuts (auto) 18.4 H, Absolute Lymphs (auto) 1.56, Nucleated RBC % 0, Sodium 138, Potassium 2.5 L*, Chloride 98, Carbon Dioxide 26.0, Anion Gap 14, BUN 8, Creatinine 0.75, Estim Creat Clear Calc 94.71, Est GFR (MDRD) Af Amer 116, Est GFR (MDRD) Non-Af 96, BUN/Creatinine Ratio 10.7, Glucose 181 H, Calcium 8.3 L, Phosphorus 3.2, Magnesium 1.2 L, Total Bilirubin 1.00, Direct Bilirubin 0.39 H, GGT 850 H, AST 151 H, ALT 77 H, Alkaline Phosphatase 187 H, Total Protein 7.3, Albumin 3.7, Globulin 3.6, Lipase 1606 H 01/21/23 20:39: Urine Color Yellow, Urine Clarity Clear, Urine pH 6.0, Ur Specific [place] 1.015, Urine Protein 30 H, Urine Glucose (UA) Normal, Urine Ketones 5 H, Urine Occult Blood 25 H, Urine Nitrite Negative, Urine Bilirubin Negative, Urine Urobilinogen Normal, Ur Leukocyte Esterase Negative, Urine RBC 0 SEEN, Urine WBC 0-5 SEEN, Ur Squamous Epith Cells 0-5 SEEN, Urine Bacteria 0 SEEN, Urine Mucus 0 SEEN 01/22/23 00:42: Ethyl Alcohol < 3.0 01/22/23 06:25: WBC 12.9 H, RBC 4.42, Hgb 15.0, Hct 42.2, MCV 95.5, MCH 33.9 H, MCHC 35.5, RDW Std Deviation 48.1 H, RDW Coeff of Tyra 13.7, Plt Count 158, MPV 10.2, Immature Gran % (Auto) 0.500, Neut % (Auto) 89.9 H, Lymph % (Auto) 6.1 L, [place] % (Auto) 3.3, Eos % (Auto) 0.0, Baso % (Auto) 0.2, Absolute Neuts (auto) 11.6 H, Absolute Lymphs (auto) 0.79 L, Nucleated RBC % 0, Sodium 140, Potassium 3.6, Chloride 107, Carbon Dioxide 25.0, Anion Gap 8, BUN 7, Creatinine 0.69, Estim Creat Clear Calc 102.95, Est GFR (MDRD) Af Amer 129, Est GFR (MDRD) Non-Af 107, BUN/Creatinine Ratio 10.2, Glucose 169 H, Calcium 6.8 L, Total Bilirubin 1.70 H, AST 101 H, ALT 54, Alkaline Phosphatase 143 H, Total Protein 6.1 L, Albumin 3.1 L, Globulin 3.0, Albumin/Globulin Ratio 1.0 Radiography Diagnostic Testing: Radiology Impression Abdomen/Pelvis CT 01/21/23 21:08 IMPRESSION: Pancreatitis without obvious complication. Marked fatty infiltration of the liver with likely associated hepatomegaly. Electronically Signed: Esa Lyons MD at 22:10 EDT , ADDENDUM: 01/22/23 0818 IMPRESSION: undefined Physical Exam Const alert, oriented x3, no apparent distress and healthy appearing General Appearance: cooperative, well kempt and well developed Orientation / Consciousness: awake, oriented to person, oriented to place and oriented to time HEENT normocephalic, head/scalp atraumatic and moist oral mucous membranes Eyes PERRL, EOMs intact bilaterally and conjunctivae normal Neck supple, no JVD, thyroid normal and no carotid bruits General: trachea midline Resp normal respiratory effort, no retractions, no use of accessory muscles and clear to auscultation bilaterally Auscultation: Negative for rales, rhonchi or wheezes Cardio regular rate, regular rhythm, S1 normal heart sound, S2 normal heart sound, no murmurs, no rub and no gallops GI soft to palpation and non-distended GI Narrative: Mild diffuse abdominal tenderness is noted on palpation Extremity no clubbing, cyanosis or edema Skin no rashes or lesions noted General Skin Exam: no breakdown Neuro oriented x3, CN's II-XII intact bilaterally, no focal motor deficits and no sensory deficits noted Sensorium / Orientation: awake, alert, oriented to person, oriented to place and oriented to time Speech: speech normal Psych affect normal Assessment & Plan Assessment/Plan (1) Acute pancreatitis: QUALIFIERS: Pancreatitis type: unspecified pancreatitis type Acute pancreatitis complication: no infection or necrosis Qualified Code(s): K85.90 - Acute pancreatitis without necrosis or infection, unspecified PLAN: Plan 1. Acute pancreatitis-suspected to be secondary to alcohol usage, patient has no evidence of any obstructive process in the bile duct at this time, I have elected not to do an ultrasound at this time and monitor the patient's medical progress. #2 elevated liver enzymes-etiology unclear but again this could be secondary to alcohol usage, labs will be monitored #3 hypomagnesemia-I will recheck the patient's magnesium tomorrow #4 essential hypertension-I started the patient on Norvasc 5 mg daily today along with lisinopril 20 mg daily. Patient's blood pressure will be monitored Total clinical time spent by myself addressing the patient's medical issues, reviewing all of her data, and collaborating with the patient's care team: 35 minutes Charges/Coding Visit Charges Inpatient E&M: 78119 Subs Hosp L2
[2023-01-22] MEDS: Ondansetron 8 MG Tablet PO (20:14)
[2023-01-22 21:59] LABS: Amphetamine Urine VISTA NEGATIVE (<1000 ng/mL); Barbiturate Urine VISTA NEGATIVE (< 200 ng/mL); Benzodiazepine Urine VISTA POSITIVE (< 200 ng/mL); Cocaine Urine VISTA NEGATIVE (< 300 ng/mL); Ecstacy Urine VISTA NEGATIVE (< 500 ng/mL); Methadone Urine VISTA NEGATIVE (< 300 ng/mL); PCP Urine VISTA NEGATIVE (< 25 ng/mL); THC Urine VISTA NEGATIVE (< 50 ng/mL); Vista UDS pH Range 5
[2023-01-22] MEDS: Magnesium Sulfate 4gm/100mL 4 GM/100 ML IV.SOLN. IV (22:19)
[2023-01-23] VITALS (9 sets, daily range): BP systolic 149–156; BP diastolic 91–116; PULSE 114–130; RESP 16–18; TEMP 36.4–37.2; O2SAT 96–100
[2023-01-23] MEDS: KCL 20MEQ in 0.9% NS 20 MEQ/1,000 ML IV.SOLN. 150 MEQ IV ×2 (01:00→06:56)
[2023-01-23] MEDS: Acetaminophen 325 MG Tablet 650 MG PO ×2 (02:31→22:47)
[2023-01-23] MEDS: oxyCODONE 5 MG Tablet PO ×3 (05:56→22:47)
[2023-01-23] MEDS: Ondansetron 8 MG Tablet PO ×2 (06:01→22:47)
[2023-01-23] MEDS: clonazePAM 0.5 MG Tablet PO ×2 (06:01→16:17)
[2023-01-23 07:14] LABS: Absolute Lymphocyte Count 1.34 X10^3/uL (0.83-4.51); Absolute Neutrophil Count 10.6 X10^3/uL (2.0-7.7); Basophil# 0.06 X10^3/uL; Basophil% 0.5 % (0-1); Eosinophil# 0.01 X10^3/uL; Eosinophils% 0.1 % (0-5); Hematocrit 41.5 % (37-47); Hemoglobin 14.4 g/dL (12.0-15.0); Lymphocyte # 1.34 X10^3/ul (0.83-4.51); Lymphocyte % 10.7 % (19-41); Mean Corp Hgb Conc 34.7 g/dL (32-36); Mean Corpuscular Hgb 33.8 pg (27.0-32.0); Mean Corpuscular Volume 97.4 fL (81-99); Mean Platelet Vol. 10.6 fl (6.2-12.0); Monocyte# 0.45 X10^3/uL; Monocyte% 3.6 % (0-10); NRBC Flagged by Analyzer 0 % (0-5); Neutrophil # 10.58 X10^3/uL (2.7-7.7); Neutrophil % 84.7 % (47-70); Platelet Count 125 K/mm3 (150-450); RBC Distribution Width CV 14.3 % (11.6-14.6); RBC Distribution Width SD 50.6 fl (35.1-43.9); Red Blood Count 4.26 M/mm3 (4.2-5.4); White Blood Count 12.5 K/mm3 (4.4-11.0)
[2023-01-23 07:47] LABS: ALB/GLOB Ratio 0.8 RATIO (0.9-2.4); AST(SGOT) 52 U/L (15-37); Alanine Aminotransfer ALT/SGPT 33 U/L (13-56); Albumin, Serum 2.7 g/dL (3.2-5.0); Alkaline Phosphatase 107 U/L (45-117); Anion Gap 6 (5-15); BUN 7 mg/dL (7-18); BUN/Creat Ratio 12.4 RATIO (10-20); Calcium,Total 7.1 mg/dL (8.5-10.1); Chloride 104 mmol/L (98-107); Creatinine, Serum 0.56 mg/dL (0.55-1.02); EST Glomerular Filtration Rate 134 mL/min (>60); Est Glom Filt Rate - Afr Amer 162 mL/min (>60); Estimated Creatinine Clearance 126.85 ml/min; Globulin 3.2 g/dL (2.2-4.2); Glucose 121 mg/dL (74-106); Magnesium 2.7 mg/dL (1.6-2.6); Potassium 3.2 mmol/L (3.5-5.1); Protein, Total 5.9 g/dL (6.4-8.2); Sodium Level 136 mmol/L (136-145)
[2023-01-23] MEDS: Lisinopril 20 MG Tablet PO (10:16)
[2023-01-23] MEDS: Potassium Chloride Oral Tablet 20 MEQ PO (10:17)
[2023-01-23] MEDS: amLODIPine 5 MG Tablet PO (10:17)
[2023-01-23] MEDS: Pantoprazole Sodium 40 MG Tablet PO (10:17)
--- NOTE | 2023-01-23 11:46 | ECHOL_ITS ---
Reason For Study: Arrhythmia/assess LVF Procedure This was a limited 2D transthoracic echocardiogram. Exam performed portable in patient room. Left Ventricle Normal LV size. The estimated ejection fraction is 60 %. Unable to assess diastolic dysfunction. No regional wall motion abnormalities noted. Right Ventricle Normal RV size. Normal systolic function. Atria The left and right atria are normal. No doppler evidence for ASD. Mitral Valve There is no mitral valve stenosis. Trivial mitral valve insufficiency. Tricuspid Valve There is no tricuspid stenosis. Unable to estimate RV systolic pressure due to inadequate jet, pulmonary artery pressure probably normal. Aortic Valve Trisinus/trileaflet aortic valve. There is no aortic stenosis. No aortic valve insufficiency. Pulmonic Valve There is no pulmonic valvular stenosis. No pulmonic valve insufficiency. Great Vessels Normal aortic root. Pericardium/Pleural No pericardial effusion. MMode/2D Measurements & Calculations LVIDd: 4.5 cm IVSd: 0.86 cm LA dimension: 3.1 cm LVIDs: 3.5 cm LVPWd: 0.85 cm FS: 22.5 % LAV(MOD-bp): 25.5 ml LVAd ap4: 27.9 cm2 LVAd ap2: 23.6 cm2 LAV(MOD-bp) Indexed: 14.4 ml/m2 LVLd ap4: 7.9 cm LVLd ap2: 8.0 cm LAV(MOD-sp2): 28.5 ml EDV(MOD-sp4): 82.3 ml EDV(MOD-sp2): 60.3 ml LAV(MOD-sp4): 22.6 ml EDV(sp4-el): 83.9 ml EDV(sp2-el): 59.5 ml LVAs ap4: 17.3 cm2 LVAs ap2: 15.0 cm2 LVLs ap4: 6.8 cm LVLs ap2: 7.1 cm ESV(MOD-sp4): 37.2 ml ESV(MOD-sp2): 29.0 ml ESV(sp4-el): 37.3 ml ESV(sp2-el): 26.6 ml EF(MOD-sp4): 54.9 % EF(MOD-sp2): 51.9 % EF(sp4-el): 55.5 % SV(MOD-sp4): 45.2 ml SV(MOD-sp2): 31.3 ml SV(sp4-el): 46.6 ml LA A4 area: 10.7 cm2 RA A4 area: 10.1 cm2 ECHO/Echo, Limited Study Interpretation Summary The estimated ejection fraction is 60 %. Unable to assess diastolic dysfunction. Trivial mitral valve insufficiency. Ordering Physician: Jose Angel Willis Performed By: Peyman Pratt RCS
--- NOTE | 2023-01-23 14:37 | CASEMGMT ---
Social Work SW met with pt and introduced self and role of SW. Pt lives at home with significant others and children. Pt denies alcohol use other than to drink socially from time to time. Pt is on Zubsolv and sees Dr. Randall at [facility] and a counselor every other month. Pt admits to anxiety and does talk with her counselor about this. Pt does not have a PCP but informs this SW that she has received resources and plans to get established with a new PCP. SW encouraged pt to set appointment and prioritize her personal health care. Pt denies any further supports at this time. SW will remain available should needs arise. KHADIJAH Conde
--- NOTE | 2023-01-23 18:14 | PN.HOSP_ITS ---
Reason for Visit Reason for Visit: Diagnoses Hypokalemia (01/21/23) Acute pancreatitis without necrosis or infection, unspecified (01/21/23) Subjective Subjective Patient was seen and examined today, she remained tachycardic throughout the day and I ordered an echocardiogram-the results did not show anything significant and she has a normal ejection fraction. It appears that the patient was seen by cardiology in the past for palpitations, it does not appear that an actual diagnosis was ascertained on the patient. Patient's blood pressure is improved today but it is still high, she remains on blood pressure medications at this time. Patient states that her abdominal pain is less than it was yesterday, I increased her diet today. Objective Data Objective Data Vital Signs: Vital Signs Temp Pulse Resp BP Pulse Ox O2 Del Method 97.6 F L 129 H 18 151/98 H 100 Room Air 01/23/23 16:23 01/23/23 16:23 01/23/23 16:23 01/23/23 16:23 01/23/23 16:23 01/23/23 16:23 Oxygen Delivery Method Room Air Weight: 71.6 kg Body Mass Index (BMI) 27.1 Intake & Output: Intake and Output for Last 24 Hours 01/21/23 01/22/23 01/23/23 23:59 23:59 23:59 Intake Total 1300 / 1300 3424.16 / 3624.16 3090 / 3090 Balance 1300 / 1300 3424.16 / 3624.16 3090 / 3090 Lab / Micro Data 01/23/23 06:39 01/23/23 06:39 Labs: Laboratory Results - last 24 hr 01/21/23 20:39: Urine Opiates Screen POSITIVE H, Urine Methadone Screen NEGATIVE, Ur Barbiturates Screen NEGATIVE, Ur Phencyclidine Scrn NEGATIVE, Ur Amphetamines Screen NEGATIVE, MDMA (Ecstasy) Screen NEGATIVE, U Benzodiazepines Scrn POSITIVE H, Urine Cocaine Screen NEGATIVE, U Cannabinoids Screen NEGATIVE, Ur Drug Screen Comment 01/23/23 06:39: WBC 12.5 H, RBC 4.26, Hgb 14.4, Hct 41.5, MCV 97.4, MCH 33.8 H, MCHC 34.7, RDW Std Deviation 50.6 H, RDW Coeff of Tyra 14.3, Plt Count 125 L, MPV 10.6, Immature Gran % (Auto) 0.400, Neut % (Auto) 84.7 H, Lymph % (Auto) 10.7 L, [place] % (Auto) 3.6, Eos % (Auto) 0.1, Baso % (Auto) 0.5, Absolute Neuts (auto) 10.6 H, Absolute Lymphs (auto) 1.34, Nucleated RBC % 0, Sodium 136, Potassium 3.2 L, Chloride 104, Carbon Dioxide 26.0, Anion Gap 6, BUN 7, Creatinine 0.56, Estim Creat Clear Calc 126.85, Est GFR (MDRD) Af Amer 162, Est GFR (MDRD) Non-Af 134, BUN/Creatinine Ratio 12.4, Glucose 121 H, Calcium 7.1 L, Magnesium 2.7 H, Total Bilirubin 1.70 H, AST 52 H, ALT 33, Alkaline Phosphatase 107, Total Protein 5.9 L, Albumin 2.7 L, Globulin 3.2, Albumin/Globulin Ratio 0.8 L Radiography Diagnostic Testing: Radiology Impression Echocardiogram 01/23/23 11:46 Interpretation Summary The estimated ejection fraction is 60 %. Unable to assess diastolic dysfunction. Trivial mitral valve insufficiency. Ordering Physician: Jose Angel Willis Performed By: Peyman Pratt RCS Physical Exam Const alert, oriented x3, no apparent distress and healthy appearing General Appearance: cooperative, well kempt and well developed Orientation / Consciousness: awake, oriented to person, oriented to place and oriented to time HEENT normocephalic, head/scalp atraumatic and moist oral mucous membranes Eyes PERRL, EOMs intact bilaterally and conjunctivae normal Neck supple, no JVD, thyroid normal and no carotid bruits General: trachea midline Resp normal respiratory effort, no retractions, no use of accessory muscles and clear to auscultation bilaterally Auscultation: Negative for rales, rhonchi or wheezes Cardio regular rate, regular rhythm, no murmurs, no rub and no gallops Cardio Narrative: Heart rate and rhythm is tachycardic GI normal to inspection, nondistended, normoactive bowel sounds, soft to palpation, non-tender and non-distended Extremity no clubbing, cyanosis or edema Skin no rashes or lesions noted General Skin Exam: no breakdown Neuro oriented x3, CN's II-XII intact bilaterally, moves all extremities, no focal motor deficits and no sensory deficits noted Sensorium / Orientation: awake, alert, oriented to person, oriented to place and oriented to time Speech: speech normal Psych affect normal Assessment & Plan Assessment/Plan (1) Acute pancreatitis: QUALIFIERS: Pancreatitis type: unspecified pancreatitis type Acute pancreatitis complication: no infection or necrosis Qualified Code(s): K85.90 - Acute pancreatitis without necrosis or infection, unspecified PLAN: Plan 1. Acute pancreatitis-suspected to be secondary to alcohol usage, patient has no evidence of any obstructive process in the bile duct at this time, I have elected not to do an ultrasound at this time and monitor the patient's medical progress. #2 elevated liver enzymes-etiology unclear but again this could be secondary to alcohol usage, labs will be monitored #3 hypomagnesemia-corrected at this time #4 essential hypertension-I started the patient on Norvasc 5 mg daily today along with lisinopril 20 mg daily. Patient's blood pressure will be monitored #5 hypokalemia-patient was given additional potassium today, labs will be rechecked #6 sinus tachycardia-etiology unclear at this point, I do not feel the patient needs to have a beta-jonathan added to her medical regimen at this time, she does not appear to be going through any alcohol withdrawal at this time either. Patient will be monitored on telemetry, I will order a TSH, a T3 and a T4 Total clinical time spent by myself addressing the patient's medical issues, reviewing all of her data, and collaborating with the patient's care team: 35 minutes Charges/Coding Visit Charges Inpatient E&M: 63790 Subs Hosp L2
[2023-01-24 01:15] VITALS: PULSE 107
[2023-01-24] MEDS: clonazePAM 0.5 MG Tablet PO (05:27)
[2023-01-24] MEDS: Acetaminophen 325 MG Tablet 650 MG PO (05:27)
[2023-01-24] MEDS: oxyCODONE 5 MG Tablet PO (05:27)
[2023-01-24] MEDS: Ondansetron 8 MG Tablet PO (05:27)
[2023-01-24 05:32] VITALS: BP 153/102; PULSE 104; RESP 16; TEMP 37.1; O2SAT 97
[2023-01-24 06:47] LABS: ALB/GLOB Ratio 0.6 RATIO (0.9-2.4); AST(SGOT) 35 U/L (15-37); Alanine Aminotransfer ALT/SGPT 22 U/L (13-56); Albumin, Serum 2.2 g/dL (3.2-5.0); Alkaline Phosphatase 98 U/L (45-117); Anion Gap 5 (5-15); BUN 6 mg/dL (7-18); BUN/Creat Ratio 13.2 RATIO (10-20); Calcium,Total 7.5 mg/dL (8.5-10.1); Chloride 106 mmol/L (98-107); Creatinine, Serum 0.45 mg/dL (0.55-1.02); EST Glomerular Filtration Rate 172 mL/min (>60); Est Glom Filt Rate - Afr Amer 208 mL/min (>60); Estimated Creatinine Clearance 157.85 ml/min; Free T3 1.7 pg/mL (2.18-3.98); Globulin 3.4 g/dL (2.2-4.2); Glucose 98 mg/dL (74-106); Potassium 3.2 mmol/L (3.5-5.1); Protein, Total 5.6 g/dL (6.4-8.2); Sodium Level 138 mmol/L (136-145); T4 Total, Thyroxin 6.9 ug/dL (4.8-13.9); Thyroid Stim Hormone (TSH) 3.59 uIU/mL (0.358-3.74)
[2023-01-24 08:39] VITALS: O2SAT 94
[2023-01-24] MEDS: Pantoprazole Sodium 40 MG Tablet PO (09:42)
[2023-01-24] MEDS: Lisinopril 20 MG Tablet PO (09:42)
[2023-01-24] MEDS: amLODIPine 5 MG Tablet PO (09:42)
[2023-01-24] MEDS: Potassium Chloride Oral Tablet 20 MEQ 60 MEQ PO (09:42)
[2023-01-24 09:47] VITALS: BP 148/113; PULSE 115; RESP 18; TEMP 36.8; O2SAT 97
--- NOTE | 2023-01-24 10:05 | DCINST_ITS ---
Discharge Instructions Diet Discharge Diet: No restrictions Activity Discharge Activity: Return to Normal Activity Return to work on:: 01/28/23 Weight Bearing Status: Full weight bearing Follow Up Care Test Results: Test results from this visit will be discussed in further detail at your follow- up appointment, if applicable. Discharge Plan Admission Admit Date/Time: 01/21/23 22:37 Primary Reason for Your Visit: pancreatitis Attending Provider: Jose Angel Willis Primary Care Provider: Care Physician,No Primary Consulting Providers: Andrea Gerardo Instructions Forms: Work / School Excuse Discharge Orders/Prescriptions Prescriptions: New lisinopril 20 mg Tablet 40 mg PO DAILY Qty: 60 0RF amlodipine 5 mg Tablet 5 mg PO DAILY Qty: 30 0RF Continued Zubsolv 5.7-1.4 mg Tablet, Sublingual 1 tab SUBLINGUAL DAILY Referrals / Follow Up: Mireya Garcia [Non-Staff] - See Referral Note (as scheduled) Care Physician,No Primary [Primary Care Provider] - Disposition Disposition (needs filled in before D/C Order can be placed): Home, Self Care
--- NOTE | 2023-01-24 10:08 | DS.PCM_ITS ---
Providers Date of Admission: 01/21/23 Date of Discharge: 01/24/23 Primary Care Physician: No Primary Care Phys Reason For Visit: ACUTE PANCREATITIS Diagnosis Discharge Diagnosis (1) Acute pancreatitis: Status: Acute Code(s): K85.90 - Acute pancreatitis without necrosis or infection, unspecified Qualifiers: Acute pancreatitis complication: no infection or necrosis Pancreatitis type: unspecified pancreatitis type Qualified Code(s): K85.90 - Acute pancreatitis without necrosis or infection, unspecified Plan 1. Acute pancreatitis-suspected to be secondary to alcohol usage, patient has no evidence of any obstructive process in the bile duct at this time, I have elected not to do an ultrasound at this time and monitor the patient's medical progress. #2 elevated liver enzymes-etiology unclear but again this could be secondary to alcohol usage, labs will be monitored #3 hypomagnesemia-corrected at this time #4 essential hypertension-I started the patient on Norvasc 5 mg daily today along with lisinopril 20 mg daily. Patient's blood pressure will be monitored #5 hypokalemia-patient was given additional potassium today, labs will be rechecked #6 sinus tachycardia-etiology unclear at this point, I do not feel the patient needs to have a beta-jonathan added to her medical regimen at this time, she does not appear to be going through any alcohol withdrawal at this time either. Patient will be monitored on telemetry, I will order a TSH, a T3 and a T4 Total clinical time spent by myself addressing the patient's medical issues, reviewing all of her data, and collaborating with the patient's care team: 35 minutes Medications at Discharge Home Medications buprenorphine 5.7 mg-naloxone 1.4 mg sublingual tablet (Zubsolv) 1 tab sublingual DAILY withdraw 08/31/20 amlodipine 5 mg tablet 5 mg PO DAILY #30 tabs 01/24/23 lisinopril 20 mg tablet 40 mg (2 x 20 mg) PO DAILY #60 tabs 01/24/23 Hospital Course Operations None Procedures 2-D Echocardiogram Summary of Care Provided Minutes Spent on Discharge: 32 Hospital Course: This 32-year-old white female was seen in the emergency room at [facility] with complaints of nausea, vomiting, and diarrhea. She also complained of generalized abdominal pain with cramping. Labs in the emergency room revealed an elevated white blood cell count 20.7, potassium was low at 2.5, direct bilirubin was elevated at 0.39, AST was elevated at 151, ALT was elevated at 77, alkaline phosphatase was elevated at 187. Patient's lipase was elevated at 1606. CT of the abdomen pelvis was obtained, it showed pancreatitis without obvious complication and marked fatty infiltration of the liver with hepatomegaly. Patient was admitted to [place] [address], she was given IV fluids and potassium replacement. Patient's blood pressure was monitored and found to be high, she had no previous history of hypertension but had a strong family history of hypertension. Patient also was tachycardic during her hospital stay, an echocardiogram was obtained which showed normal EF and no valvular heart disease. Thyroid studies were obtained which were unremarkable, the etiology of the patient's tachycardia was unknown. Patient was placed on blood pressure medications during her hospital stay and these will be continued after discharge. On 01/24/2023, patient was seen and examined: On examination she appeared in good health and spirits, she does not appear to be in any distress. Vital signs as documented. Skin warm and dry and without overt rashes. Neck without JVD, thyroid appears normal, trachea is midline, neck is supple. Lungs clear, normal air movement was noted. Heart exam notable for regular rhythm-tachycardia, normal sounds and absence of murmurs, rubs or gallops. Abdomen unremarkable and without evidence of organomegaly, masses, or abdominal aortic enlargement, bowel sounds are present in all 4 quadrants, no abdominal tenderness was noted. Extremities nonedematous, no cyanosis was noted, no clubbing was noted. Neuro: Cranial nerves II through XII are grossly intact, no focal motor deficits were noted, sensation to light touch and pinprick is intact, motor exam 5/5 throughout. Psych: Patient is alert and oriented x3, she does not appear anxious or depressed, she does not appear agitated. The etiology of the patient's pancreatitis was unknown but felt to be likely secondary to alcohol use, patient was cautioned about drinking any more alcohol. Patient was discharged home on 01/24/2023 in stable condition. Weight / BMI Weight Weight: 71.6 kg Body Mass Index (BMI) 27.1 ABG / Lab / Microbiology Data 01/23/23 06:39 01/24/23 05:45 Laboratory: Laboratory Results - last 24 hr 01/24/23 05:45: Sodium 138, Potassium 3.2 L, Chloride 106, Carbon Dioxide 27.0, Anion Gap 5, BUN 6 L, Creatinine 0.45 L, Estim Creat Clear Calc 157.85, Est GFR (MDRD) Af Amer 208, Est GFR (MDRD) Non-Af 172, BUN/Creatinine Ratio 13.2, Glucose 98, Calcium 7.5 L, Total Bilirubin 1.50 H, AST 35, ALT 22, Alkaline Phosphatase 98, Total Protein 5.6 L, Albumin 2.2 L, Globulin 3.4, Albumin/Globulin Ratio 0.6 L, TSH 3.59, Thyroxine (T4) 6.9, Free T3 pg/dL 1.7 L Radiography Diagnostic Testing: Radiology Impression Echocardiogram 01/23/23 11:46 Interpretation Summary The estimated ejection fraction is 60 %. Unable to assess diastolic dysfunction. Trivial mitral valve insufficiency. Ordering Physician: Jose Angel Willis Performed By: Peyman Pratt RCS D/C Instructions Discharge Diet: No restrictions Return to work on: 01/28/23 Weight Bearing Status: Full weight bearing Meaningful Use Info Meaningful Use Diagnoses (Choose all that apply): None applicable Discharge Plan Admission Admit Date/Time: 01/21/23 22:37 Primary Reason for Your Visit: pancreatitis Attending Provider: Jose Angel Willis Primary Care Provider: Care Physician,No Primary Consulting Providers: Andrea Gerardo Instructions Forms: Work / School Excuse Discharge Orders/Prescriptions Prescriptions: New lisinopril 20 mg Tablet 40 mg PO DAILY Qty: 60 0RF amlodipine 5 mg Tablet 5 mg PO DAILY Qty: 30 0RF Continued Zubsolv 5.7-1.4 mg Tablet, Sublingual 1 tab SUBLINGUAL DAILY Referrals / Follow Up: Mireya Garcia [Non-Staff] - See Referral Note (as scheduled) Care Physician,No Primary [Primary Care Provider] - Disposition Disposition (needs filled in before D/C Order can be placed): Home, Self Care Charges/Coding Visit Charges Inpatient E&M: 94303 Disch Hosp >30min
--- NOTE | 2023-01-24 18:01 | NURSING ---
Patient called in around 1700 and states that she is in pain and wondered if the doctor would prescribe her any pain medications. genetic engineer reached out to Dr. Willis who states he is not ordering any pain medication for her. This RN called Anson edgar and informed her of same.
== END 2023-01-24 13:00 | disposition home or self-care (01) | DRG 282 ==
LOC: ED 22:30 → MS3 22:49
PROVIDERS: Admitting Provider Internal Medicine; Emergency Provider Emergency Medicine; Visit Provider Internal Medicine
DX: K85.20 Alcohol induced acute pancreatitis without necrosis or infection (principal); E83.42 Hypomagnesemia; I10 Essential (primary) hypertension; E87.6 Hypokalemia; Z87.891 Personal history of nicotine dependence; F10.90 Alcohol use, unspecified, uncomplicated; R74.8 Abnormal levels of other serum enzymes; R00.0 Tachycardia, unspecified
CPT/HCPCS: 36415; 74177; 80048; 80053; 80076; 80307; 81001; 82077; 82977; 83690; 83735; 84100; 84436; 84443; 84481; 85025; 93308; 94668; 99252; 99283; J7030; Q9967; A4216; G0463; J2405

== ENCOUNTER 2023-08-26 13:08 | Inpatient (IN) | payer MEDICAID, SELFPAY ==
[2023-08-26 13:08] VITALS: BP 160/131; PULSE 131; RESP 16; TEMP 36.2; O2SAT 96
--- NOTE | 2023-08-26 14:15 | CT_ITS ---
STUDY: CT ABDOMEN AND PELVIS WITH CONTRAST REASON FOR EXAM: Female, 33 years old. Diffuse abdominal pain RADIATION DOSAGE (If Supplied By Facility): CTDIvol = ( 11.32 ) mGy, DLP = ( 672.86 ) mGycm TECHNIQUE: Transaxial images were obtained from the dome of the diaphragm to the symphysis pubis with oral contrast. IV 100mL Isovue-370 was administered. Sagittal and coronal images were reconstructed. Individualized dose optimization techniques were used for this CT. COMPARISON: 01/21/2023 FINDINGS: The visualized lung bases are unremarkable. The visualized portions of the heart are within normal limits. There is decreased attenuation of the liver consistent with steatosis. There is stable enlargement of the left lobe of the liver extending across the anterior aspect of the spleen. Normal gallbladder and extrahepatic biliary system. Normal spleen. There is peripancreatic fluid and induration of the peripancreatic fat consistent with acute pancreatitis. There is a low-density cystic collection along the dorsal talonavicular pancreas which may represent a small pseudocyst or phlegmon. There is associated induration of the mesenteric fat as well. Normal bilateral adrenal glands. Normal right kidney. Normal left kidney. Normal visualized stomach. Nondistended fluid-filled small bowel loops are noted suggestive of ileus. There is subtle submucosal thickening in the proximal and mid transverse colon suggesting a focal colitis perhaps due to the inflammation from the pancreatitis. . The appendix is visualized and appears normal. Findings seen on coronal recon images 55 through 59 Normal abdominal aorta. Normal inferior vena cava. Normal retroperitoneum. Normal urinary bladder. Normal-appearing uterus. No suspicious cystic mass identified within the pelvis but there is free fluid in the dependent pelvis. Normal abdominal wall. Normal osseous structures. CT/Abdomen/Pelvis W IV Cont ONLY IMPRESSION: Pancreas appears heterogeneous with peripancreatic edema and inflammation consistent with acute pancreatitis. There is a cystic lesion along the dorsal talonavicular pancreas which may represent a small phlegmon or pseudocyst. Submucosal thickening in the proximal and mid transverse colon perhaps due to inflammation from the pancreatitis. This likely represents a focal colitis Fatty liver without a discrete lesion. There is persistent enlargement of the left lobe of the liver which extends across the midline and over the anterior aspect of the spleen. Normal appendix visualized Small bowel ileus Free fluid in the dependent pelvis Electronically Signed: Severino Small MD at 15:08 EDT ,
--- NOTE | 2023-08-26 14:16 | ED.VIS.GI ---
HPI HPI - GI History of Present Illness Chief Complaint: Abd Pain Detail of Chief Complaint: Abdominal pain Informant: patient Nausea/Vomiting/Emesis GI Symptom: Positive for Nausea and Vomiting Narrative Narrative: Patient presents to the emergency department complaint of abdominal pain that started 2 days ago. She been vomiting and having dry heaves. Also complains of diarrhea. Patient states that she has history of pancreatitis about 7 or 8 months ago. She does drink alcohol occasionally drinks beer. Denies illicit drug use. She does not smoke cigarettes. She had prior tubal ligation. She states that she really has not tried to eat last 2 days. She denies urinary symptoms. [facility] Medical History (Updated 02/01/23 @ 00:09 by Background Daemon) Tubal Hx of opioid abuse Alcohol use Anxiety Heartburn Palpitations (spontaneous vaginal delivery) PROM (premature rupture of membranes) Home Medications ?Medication ?Instructions ?Recorded ?Last Taken ?Type buprenorphine 5.7 mg-naloxone 1.4 1 tab sublingual DAILY withdraw 08/31/20 01/19/23 History mg sublingual tablet (Zubsolv) amlodipine 5 mg tablet 5 mg PO DAILY #30 tabs 01/24/23 Unknown Rx lisinopril 20 mg tablet 40 mg (2 x 20 mg) PO DAILY #60 tabs 01/24/23 Unknown Rx Allergy/AdvReac Type Severity Reaction Status Date / Time No Known Allergies Allergy Verified 08/26/23 13:10 Family History Father Cancer Brain Social History Smoking Status: Former smoker alcohol intake: never substance use type: does not use caffeine: Yes ROS ROS ED Review of Systems ROS Unobtainable: other Constitutional Constitutional ED: Reports lethargy; Denies chills, fever(s), sweats or weight loss Eyes Eyes: Denies blurry vision, change in vision or diplopia ENT ENT ED: Denies rhinorrhea or sore throat Cardiovascular Cardiovascular: Denies chest pain, orthopnea or racing heartbeat Respiratory/Chest Respiratory/Chest: Denies cough, dyspnea, dyspnea on exertion, orthopnea or sputum Gastrointestinal Gastrointestinal: Reports abdominal pain, diarrhea, nausea and vomiting Genitourinary Genitourinary ED: Denies dysuria, hematuria or urinary frequency Musculoskeletal Musculoskeletal: Denies arthralgias, back pain, myalgias or neck pain Integumentary Denies abscess, Abrasions or rash Neurologic Neurologic: Denies headache(s) or weakness Psychiatric Psychiatric: Denies anxiety, depression or suicidal thoughts Endocrine Endocrinology: Denies polydipsia, polyphagia or polyuria Hematologic/Lymphatic Hematologic/Lymphatic: Denies easy bleeding, easy bruising or lymphadenopathy Allergic/Immunologic Allergic/Immunologic ED: Denies mouth swelling, tongue swelling or urticaria EXAM Physical Exam Const Vital Signs: 08/26/23 13:08 Temperature 97.2 F L Temperature Source Temporal Pulse Rate 131 H Respiratory Rate 16 Blood Pressure 160/131 H Blood Pressure Mean 140 Pulse Ox 96 Oxygen Delivery Method Room Air Positive well nourished and well developed General Appearance ED: well developed and NAD HEENT Reports TM's clear and moist mucous membranes normocephalic and atraumatic; Negative for trauma or tenderness Tympanic Membrane ED: Yes TM's clear Eyes PERRL and EOMs intact bilaterally General Eye ED: Negative for pale conjunctiva or scleral icterus Neck no lymphadenopathy, supple and no JVD General: Negative for tenderness Chest Wall inspection of chest normal and palpation of chest normal Chest: Negative for tenderness Resp normal respiratory effort and clear to auscultation bilaterally Effort and Inspection: Negative for respiratory distress or pain with movement Auscultation: Negative for rhonchi, wheezes or diminished lung sounds Cardio regular rate, regular rhythm, S1 normal heart sound, S2 normal heart sound and no murmurs Peripheral Pulses: pulses 2+ throughout GI normal to inspection, nondistended, normoactive bowel sounds, soft to palpation, non-distended and no masses GI Narrative: Patient with hyperactive bowel sounds. Maximum pain over the epigastric region and left upper quadrant. She is also tender left lower quadrant. She is tender right upper quadrant with some guarding. There is no rebound, rigidity, or pineal signs. No mass palpated. Back/Spine no CVA tenderness and no thoracic nor lumbar tenderness Extremity normal to inspection General Extremety ED: Negative for edema General Extremity: Negative for edema Neuro oriented x3, CN's II-XII intact bilaterally, no sensory deficits noted and gait normal Sensorium / Orientation: awake, alert, oriented to person, oriented to place and oriented to time Motor Exam: strength 5/5 throughout and strength abnormal Psych mental status grossly normal Skin no rashes or lesions noted and no wounds Discharge Plan Triage Chief Complaint: Abd Pain ED Provider: Jessika Lorenzo Dx/Rx/DC Orders Prescriptions: No Action Zubsolv 5.7-1.4 mg Tablet, Sublingual 1 tab SUBLINGUAL DAILY lisinopril 20 mg Tablet 40 mg PO DAILY Qty: 60 0RF amlodipine 5 mg Tablet 5 mg PO DAILY Qty: 30 0RF Primary Care Provider: Care Physician,No Primary Referrals: Care Physician,No Primary [Primary Care Provider] - Print Language: Upper Sorbian
[2023-08-26] MEDS: 0.9% Normal Saline (1000mL) 1,000 ML 125 ML IV ×2 (14:32→22:07)
[2023-08-26] MEDS: HYDROmorphone 1 MG/ML Syringe IV (14:32)
[2023-08-26] MEDS: Ondansetron 4 MG/2 ML Vial IV (14:32)
[2023-08-26 14:37] LABS: Absolute Lymphocyte Count 1.14 X10^3/uL (0.83-4.51); Absolute Neutrophil Count 8.8 X10^3/uL (2.0-7.7); Basophil# 0.03 X10^3/uL; Basophil% 0.3 % (0-1); Eosinophil# 0.07 X10^3/uL; Eosinophils% 0.7 % (0-5); Hemoglobin 15.8 g/dL (12.0-15.0); Lymphocyte # 1.14 X10^3/ul (0.83-4.51); Lymphocyte % 10.8 % (19-41); Mean Corp Hgb Conc 35.1 g/dL (32-36); Mean Corpuscular Hgb 31.9 pg (27.0-32.0); Mean Corpuscular Volume 90.7 fL (81-99); Mean Platelet Vol. 10.6 fl (6.2-12.0); Monocyte# 0.52 X10^3/uL; Monocyte% 4.9 % (0-10); NRBC Flagged by Analyzer 0 % (0-5); Neutrophil # 8.79 X10^3/uL (2.7-7.7); Neutrophil % 82.9 % (47-70); Platelet Count 168 K/mm3 (150-450); RBC Distribution Width CV 12.6 % (11.6-14.6); RBC Distribution Width SD 41.8 fl (35.1-43.9); Red Blood Count 4.96 M/mm3 (4.2-5.4); White Blood Count 10.6 K/mm3 (4.4-11.0)
[2023-08-26 14:54] LABS: AST(SGOT) 92 U/L (15-37); Alanine Aminotransfer ALT/SGPT 116 U/L (13-56); Alkaline Phosphatase 241 U/L (45-117); Anion Gap 12 (5-15); BUN 8 mg/dL (7-18); BUN/Creat Ratio 10.6 RATIO (10-20); Calcium,Total 8.5 mg/dL (8.5-10.1); Chloride 93 mmol/L (98-107); Creatinine, Serum 0.75 mg/dL (0.55-1.02); EST Glomerular Filtration Rate 95 mL/min (>60); Est Glom Filt Rate - Afr Amer 115 mL/min (>60); Globulin 3.9 g/dL (2.2-4.2); Glucose 161 mg/dL (74-106); Potassium 2.9 mmol/L (3.5-5.1); Protein, Total 7.9 g/dL (6.4-8.2); Sodium Level 133 mmol/L (136-145)
[2023-08-26 15:08] VITALS: BP 149/108; PULSE 101; RESP 17; O2SAT 97
[2023-08-26 15:08] LABS: Lactic Acid 1.7 mmol/L (0.4-1.9)
[2023-08-26 15:22] LABS: Mucous, Urine 0 SEEN /hpf (<or=2+); Red Blood Cells-Urine 0 SEEN /hpf (0-5); Squamous Epithelial Cells - UA 0 SEEN /hpf (5-10)
[2023-08-26 15:29] LABS: Color, Urine Yellow (Yellow); Glucose, Dipstick Normal (Normal); Ketone-Dipstick Negative (Negative); Leukocyte Esterase-Dipstick 500 /ul (Negative); Nitrite-Dipstick Positive (Negative); Occult Blood-Urine 10 /ul (Negative); Protein-Dipstick 30 mg/dl (Negative); Urine Bilirubin Dipstick Negative (Negative); Urine Clarity Clear (Clear); Urine Urobilinogen 1 mg/dl (Normal)
--- NOTE | 2023-08-26 15:45 | US_ITS ---
EXAM: US ABDOMEN LIMITED, RIGHT UPPER QUADRANT CLINICAL INDICATION: abdominal pain TECHNIQUE: Real-time ultrasound of the right upper quadrant with image documentation. COMPARISON: No relevant prior studies available. FINDINGS: LIVER: Liver is slightly increased in echogenicity. The liver measures 21.2 cm. No intrahepatic biliary ductal dilation. GALLBLADDER: Gallbladder wall measures 2 mm. No shadowing gallstone. No pericholecystic fluid. Negative sonographic Borrego''s sign. COMMON BILE DUCT: Common bile duct measures 6 mm. The proximal common bile duct is within normal limits for the patient''s age. PANCREAS: Pancreas is obscured by overlying bowel gas. RIGHT KIDNEY: The right kidney measures 11.6 x 4.4 1.7 cm. The right renal cortex measures 1.5 cm. There is no hydronephrosis. No shadowing calculus. No focal lesion or perinephric collection is demonstrated. US/Gallbladder IMPRESSION: Hepatomegaly. There is also fatty infiltration of the liver. No other acute abnormalities are identified. Electronically Signed: Frankie Viera MD at 16:50 EDT ,
[2023-08-26 15:48] LABS: Bacteria 1+ /hpf (None Seen); White Blood Cells 0-5 SEEN /hpf (0-5)
[2023-08-26 15:59] LABS: Lipase 1551 U/L (13-75)
--- NOTE | 2023-08-26 16:02 | ED.VIS.GI ---
HPI HPI - GI History of Present Illness Chief Complaint: Abd Pain PFSH PFS Medical History (Updated 08/26/23 @ 16:[address] Jessika Lorenzo, DO) Tubal Hx of opioid abuse Alcohol use Anxiety Heartburn Palpitations (spontaneous vaginal delivery) PROM (premature rupture of membranes) Home Medications ?Medication ?Instructions ?Recorded ?Last Taken ?Type buprenorphine 5.7 mg-naloxone 1.4 1 tab sublingual DAILY withdraw 08/31/20 01/19/23 History mg sublingual tablet (Zubsolv) amlodipine 5 mg tablet 5 mg PO DAILY #30 tabs 01/24/23 Unknown Rx lisinopril 20 mg tablet 40 mg (2 x 20 mg) PO DAILY #60 tabs 01/24/23 Unknown Rx Allergy/AdvReac Type Severity Reaction Status Date / Time No Known Allergies Allergy Verified 08/26/23 13:10 Family History Father Cancer Brain Social History Smoking Status: Former smoker alcohol intake: never substance use type: does not use caffeine: Yes EXAM Physical Exam Const Vital Signs: 08/26/23 13:08 08/26/23 15:08 Temperature 97.2 F L Temperature Source Temporal Pulse Rate 131 H 101 H Respiratory Rate 16 17 Blood Pressure 160/131 H 149/108 H Blood Pressure Mean 140 121 Pulse Ox 96 97 Oxygen Delivery Method Room Air Room Air MDM MDM MDM Narrative Medical decision making narrative: Patient presents with abdominal pain x 2 days. History of pancreatitis. Describing diffuse abdominal pain. She had vomiting and diarrhea. IV line established. She was medicated with Dilaudid and Zofran and given a liter mostly fluid bolus. CBC with differential obtained showed white count 10.6 with hemoglobin 15.6 and platelet count of 168. Chemistries unremarkable other than a slightly depressed potassium at 2.9 for which I did order 40 mEq of potassium chloride IV. Chemistry showed slightly elevated LFTs with an AST of 92 and an ALT of 116 and an alkaline phosphatase of 241. Total bilirubin slightly elevated at 1.8. Lipase was elevated at 1500. Urinalysis positive for nitrites and 500 leukocyte Estrace however only 0-5 WBCs and +[address] scan of the abdomen pelvis was obtained which showed evidence for acute pancreatitis and possible small pseudocyst. Case discussed with hospitalist who will evaluate patient for admission. Also discussed case with general surgeon on-call Dr. Cantrell who recommended obtaining a gallbladder ultrasound to evaluate further. Patient will be admitted for fluids and pain medication and definitive care. Lab Data Attestation: I reviewed the patient's lab results. Labs: Laboratory Results - last 24 hr 08/26/23 08/26/23 14:22 15:13 WBC 10.6 RBC 4.96 Hgb 15.8 H Hct 45.0 MCV 90.7 MCH 31.9 MCHC 35.1 RDW Std Deviation 41.8 RDW Coeff of Tyra 12.6 Plt Count 168 MPV 10.6 Immature Gran % (Auto) 0.400 Neut % (Auto) 82.9 H Lymph % (Auto) 10.8 L [place] % (Auto) 4.9 Eos % (Auto) 0.7 Baso % (Auto) 0.3 Absolute Neuts (auto) 8.8 H Absolute Lymphs (auto) 1.14 Nucleated RBC % 0 Sodium 133 L Potassium 2.9 L Chloride 93 L Carbon Dioxide 28.0 Anion Gap 12 BUN 8 Creatinine 0.75 Est GFR (MDRD) Af Amer 115 Est GFR (MDRD) Non-Af 95 BUN/Creatinine Ratio 10.6 Glucose 161 H Lactic Acid 1.7 Calcium 8.5 Total Bilirubin 1.80 H AST 92 H ALT 116 H Alkaline Phosphatase 241 H Total Protein 7.9 Albumin 4.0 Globulin 3.9 Albumin/Globulin Ratio 1.0 Lipase 1551 H Urine Color Yellow Urine Clarity Clear Urine pH 8.0 Ur Specific [place] 1.010 Urine Protein 30 H Urine Glucose (UA) Normal Urine Ketones Negative Urine Occult Blood 10 H Urine Nitrite Positive H Urine Bilirubin Negative Urine Urobilinogen 1 H Ur Leukocyte Esterase 500 H Urine RBC 0 SEEN Urine WBC 0-5 SEEN Ur Squamous Epith Cells 0 SEEN Urine Bacteria 1+ Urine Mucus 0 SEEN Radiography Diagnostic Testing: Clinical Impression(s) from Imaging Studies Abdomen/Pelvis CT 08/26/23 14:15 IMPRESSION: Pancreas appears heterogeneous with peripancreatic edema and inflammation consistent with acute pancreatitis. There is a cystic lesion along the dorsal talonavicular pancreas which may represent a small phlegmon or pseudocyst. Submucosal thickening in the proximal and mid transverse colon perhaps due to inflammation from the pancreatitis. This likely represents a focal colitis Fatty liver without a discrete lesion. There is persistent enlargement of the left lobe of the liver which extends across the midline and over the anterior aspect of the spleen. Normal appendix visualized Small bowel ileus Free fluid in the dependent pelvis Electronically Signed: Severino Small MD at 15:08 EDT , Discharge Plan Dx/Rx/DC Orders Clinical Impression: Acute pancreatitis, Abdominal pain, Elevated LFTs Disposition Disposition: Acute Care Hospital [facility]
--- NOTE | 2023-08-26 16:07 | HP.PCM.HOS_ITS ---
HPI - General General Date of Admission: 08/26/23 Date of Service: 08/26/23 Chief Complaint: abdominal pain HPI Narrative MARICARMEN HARRISON, is a 33 F with a PMH as outlined who presents via the ED on 08/26/2023 with a complaint of abdominal pain for 2 days prior to admission. She drinks beer on occasion. She had pancreatitis 7-8 months ago. She complained of nausea and vomiting also, but denied any fever, chills or any other symptoms. Review of systems was otherwise negative. Vitals in the ED were BP of 149/108, AR of 101, RR of 17 and she was saturating at 97% on room air. CBC showed wbc of 10.6, hb of 15.8 and platelets of 168. BMP showed sodium of 133, potassium of 2.9, Cr of 0.75, total bilirubin of 1.8 and AST/ALT/ALP mildly elevated at 92/116/241. Lipase was also elevated at 1551. Urinalysis showed 1+ bacteria with positive nitrites. CT of the abdomen and pelvis showed pancreatitis with peripancreatic edema and inflammation as well as a cystic lesion along the dorsal part of the pancreas which may represent a small phlegmon or pseudocyst and there was also submucosal thickening in the proximal and mid transverse colon perhaps due to inflammation from the pancreatitis. She has been admitted to be managed for acute pancreatitis. General surgery was contacted by ED and they requested for gallbladder ultrasound which has been done and read is pending. [facility] Medical History (Updated 08/26/23 @ 16:[address] Jessika Lorenzo, DO) Tubal Hx of opioid abuse Alcohol use Anxiety Heartburn Palpitations (spontaneous vaginal delivery) PROM (premature rupture of membranes) Home Medications ?Medication ?Instructions ?Recorded ?Last Taken ?Type buprenorphine 5.7 mg-naloxone 1.4 1 tab sublingual DAILY withdraw 08/31/20 01/19/23 History mg sublingual tablet (Zubsolv) acetaminophen 500 mg capsule 500 mg PO Q6H PRN pain 08/26/23 08/26/23 History alprazolam 1 mg tablet 1 mg PO DAILY PRN anxiety 08/26/23 Unknown History ondansetron 4 mg disintegrating 4 mg PO Q6H PRN nausea and vomiting 08/26/23 08/26/23 History tablet Allergy/AdvReac Type Severity Reaction Status Date / Time No Known Allergies Allergy Verified 08/26/23 13:10 Family History Father Cancer Brain Social History Smoking Status: Former smoker alcohol intake: never substance use type: does not use caffeine: Yes ROS Constitutional Constitutional: Reports anorexia, fatigue, malaise and weakness; Denies chills or fever(s) Eyes Eyes: Denies change in vision ENT HEENT: Denies dysphagia, headache(s) or sore throat Cardiovascular Cardiovascular: Denies chest pain, dyspnea on exertion, edema, lightheadedness, orthopnea, palpitations, paroxysmal nocturnal dyspnea, rapid heart rate or syncope Respiratory/Chest Respiratory/Chest: Denies cough, shortness of breath at rest or shortness of breath with exertion Gastrointestinal Gastrointestinal: Reports abdominal pain, nausea and vomiting; Denies constipation, diarrhea, dyspepsia, hematemesis, hematochezia, loose stools or melena Genitourinary Genitourinary: Denies dysuria or nocturia Musculoskeletal Musculoskeletal: Denies back pain or joint pain Neurologic Neurologic: Denies confusion, dizziness, focal weakness, headache(s), numbness, seizures, syncope or tingling Psychiatric Psychiatric: Denies anxiety or depression Endocrine Endocrinology: Denies change in body appearance Vital Signs Vital Signs Vital Signs: 08/26/23 13:08 08/26/23 15:08 Temperature 97.2 F L Temperature Source Temporal Pulse Rate 131 H 101 H Respiratory Rate 16 17 Blood Pressure 160/131 H 149/108 H Blood Pressure Mean 140 121 Pulse Ox 96 97 Oxygen Delivery Method Room Air Room Air Physical Exam Const alert, oriented x3, average body habitus and healthy appearing Constitutional Narrative: in moderate distress due to abdominal pain HEENT normocephalic, head/scalp atraumatic, hearing grossly normal bilaterally, moist oral mucous membranes and oropharynx normal Mouth: oral and palatal mucosa normal Eyes EOMs intact bilaterally Neck no lymphadenopathy and supple Resp normal respiratory effort, no use of accessory muscles and clear to auscultation bilaterally Cardio regular rate, regular rhythm, S1 normal heart sound, S2 normal heart sound and no murmurs GI normal to inspection, nondistended, normoactive bowel sounds, soft to palpation, non-tender and non-distended Extremity normal to inspection, full ROM and no clubbing, cyanosis or edema Neuro CN's II-XII intact bilaterally, moves all extremities and no focal motor deficits Sensorium / Orientation: awake and alert Motor Exam: strength 5/5 throughout Psych affect normal Results Lab / Micro Data 08/26/23 14:22 08/26/23 14:22 Labs: Laboratory Results - last 24 hr 08/26/23 14:22: WBC 10.6, RBC 4.96, Hgb 15.8 H, Hct 45.0, MCV 90.7, MCH 31.9, MCHC 35.1, RDW Std Deviation 41.8, RDW Coeff of Tyra 12.6, Plt Count 168, MPV 10.6, Immature Gran % (Auto) 0.400, Neut % (Auto) 82.9 H, Lymph % (Auto) 10.8 L, [place] % (Auto) 4.9, Eos % (Auto) 0.7, Baso % (Auto) 0.3, Absolute Neuts (auto) 8.8 H, Absolute Lymphs (auto) 1.14, Nucleated RBC % 0, Sodium 133 L, Potassium 2.9 L, Chloride 93 L, Carbon Dioxide 28.0, Anion Gap 12, BUN 8, Creatinine 0.75, Est GFR (MDRD) Af Amer 115, Est GFR (MDRD) Non-Af 95, BUN/Creatinine Ratio 10.6, Glucose 161 H, Lactic Acid 1.7, Calcium 8.5, Total Bilirubin 1.80 H, AST 92 H, A LT 116 H, Alkaline Phosphatase 241 H, Total Protein 7.9, Albumin 4.0, Globulin 3.9, Albumin/Globulin Ratio 1.0, Lipase 1551 H 08/26/23 15:13: Urine Color Yellow, Urine Clarity Clear, Urine pH 8.0, Ur Specific [place] 1.010, Urine Protein 30 H, Urine Glucose (UA) Normal, Urine Ketones Negative, Urine Occult Blood 10 H, Urine Nitrite Positive H, Urine Bilirubin Negative, Urine Urobilinogen 1 H, Ur Leukocyte Esterase 500 H, Urine RBC 0 SEEN, Urine WBC 0-5 SEEN, Ur Squamous Epith Cells 0 SEEN, Urine Bacteria 1+, Urine Mucus 0 SEEN Imaging Radiology Impression Abdomen/Pelvis CT 08/26/23 14:15 IMPRESSION: Pancreas appears heterogeneous with peripancreatic edema and inflammation consistent with acute pancreatitis. There is a cystic lesion along the dorsal talonavicular pancreas which may represent a small phlegmon or pseudocyst. Submucosal thickening in the proximal and mid transverse colon perhaps due to inflammation from the pancreatitis. This likely represents a focal colitis Fatty liver without a discrete lesion. There is persistent enlargement of the left lobe of the liver which extends across the midline and over the anterior aspect of the spleen. Normal appendix visualized Small bowel ileus Free fluid in the dependent pelvis Electronically Signed: Severino Small MD at 15:08 EDT , Assessment & Plan Assessment/Plan (1) Acute pancreatitis: PLAN: Plan #Acute pancreatitis * Patient admitted with complaint of abdominal pain been going on for about 2 days. She says has at least 2 drinks daily * CT of the abdomen and pelvis showed peripancreatic edema and inflammation consistent with acute pancreatitis with a cystic lesion along the dorsal pancreas representing a small phlegmon or pseudocyst and submucosal thickening in the proximal and mid colon probably due to inflammation from the pancreatitis and fatty liver without discrete lesion as well as persistent enlargement of the left lobe of the liver and also evidence of small bowel ileus. * Admit to MedSurg * Keep NPO. Hydrate with IV fluid normal saline starting at 150 cc/h. * IV morphine as needed for pain. * General surgery consulted from ED. Gallbladder ultrasound done and read is pending. * Liver enzymes are only mildly elevated. Will trend. * Lipase was 1551. * #Elevated liver enzymes: AST is of 82 with ALT of 116 and ALP of 241. Gallbladder ultrasound ordered and is pending. Will trend. Likely due to pancreatitis. * #Hypokalemia: Potassium is 2.9. Replace and trend. Check magnesium. #Hypertension: On amlodipine and lisinopril. IV hydralazine as needed. DVT Prophylaxis: lovenox Charges/Coding Visit Charges Inpatient E&M: 55289 Init Hosp L3
[2023-08-26] MEDS: Potassium Chloride 10mEq/100mL 10 MEQ/100 ML IV.SOLN. 100 MEQ IV BOLUS ×4 (16:26→20:45)
--- NOTE | 2023-08-26 16:39 | NURSING ---
MED SURG KORAM ABD PAIN, ACUTE PANCREATITIS
[2023-08-26 16:58] VITALS: BP 158/102; PULSE 88; RESP 18; TEMP 36.1; O2SAT 100
[2023-08-26 17:00] VITALS: BP 148/105; BP 158/102; PULSE 88; PULSE 90; RESP 14; RESP 18; TEMP 36.6; O2SAT 100; O2SAT 96
[2023-08-26 17:41] VITALS: BMI 27.2
[2023-08-26] MEDS: Morphine 2 MG/ML Syringe IV (17:49)
[2023-08-26] MEDS: Ketorolac 30 MG/ML Syringe IV (21:02)
[2023-08-26 21:04] VITALS: BP 153/110; PULSE 68; RESP 18; TEMP 36.5; O2SAT 100
[2023-08-27] MEDS: Ondansetron 4 MG/2 ML Vial IV (02:48)
[2023-08-27] MEDS: Morphine 2 MG/ML Syringe IV (02:48)
[2023-08-27] MEDS: 0.9% Saline Lock 10 ML Syringe IV ×3 (02:49→20:39)
[2023-08-27 03:35] VITALS: BP 158/97; PULSE 78; RESP 18; TEMP 36.6; O2SAT 97
[2023-08-27] MEDS: 0.9% Normal Saline (1000mL) 1,000 ML 125 ML IV ×2 (06:59→14:51)
[2023-08-27 07:47] LABS: Absolute Lymphocyte Count 1.49 X10^3/uL (0.83-4.51); Basophil# 0.03 X10^3/uL; Basophil% 0.4 % (0-1); Eosinophil# 0.13 X10^3/uL; Eosinophils% 1.6 % (0-5); Hematocrit 38.7 % (37-47); Hemoglobin 12.9 g/dL (12.0-15.0); Lymphocyte # 1.49 X10^3/ul (0.83-4.51); Lymphocyte % 18.4 % (19-41); Mean Corp Hgb Conc 33.3 g/dL (32-36); Mean Corpuscular Hgb 31.4 pg (27.0-32.0); Mean Corpuscular Volume 94.2 fL (81-99); Mean Platelet Vol. 11.3 fl (6.2-12.0); Monocyte# 0.46 X10^3/uL; Monocyte% 5.7 % (0-10); NRBC Flagged by Analyzer 0 % (0-5); Neutrophil # 5.96 X10^3/uL (2.7-7.7); Neutrophil % 73.4 % (47-70); Platelet Count 112 K/mm3 (150-450); RBC Distribution Width CV 12.7 % (11.6-14.6); RBC Distribution Width SD 44.1 fl (35.1-43.9); Red Blood Count 4.11 M/mm3 (4.2-5.4); White Blood Count 8.1 K/mm3 (4.4-11.0)
--- NOTE | 2023-08-27 07:54 | EX.PCM.CON.S ---
Assessment & Plan Assessment/Plan (1) Acute pancreatitis: QUALIFIERS: Pancreatitis type: alcohol induced Acute pancreatitis complication: unspecified Qualified Code(s): K85.20 - Alcohol induced acute pancreatitis without necrosis or infection PLAN: I have been consulted in conjunction with Dr. Cantrell. He will independently evaluate this patient. CT scan of the abdomen/pelvis demonstrated acute pancreatitis with possible cystic lesion. Submucosal thickening in the proximal and mid transverse colon perhaps due to inflammation from the pancreatitis possible focal colitis, fatty liver, normal appendix, small bowel ileus and free fluid dependent in the pelvis. RUQ u/s does not demonstrate any gallbladder etiology associated with the pancreatitis leading the etiology likely alcohol related. Patient has an enlarged fatty liver associated with elevated LFT's. Patient may benefit from a consultation or outpatient follow-up with gastroenterology. Patient's urinalysis was abnormal containing some bacteria within the specimen. Patient is also having liquid diarrhea, although notes she has not had any diarrhea since admission. Will plan to order stool studies. Recommend continuing IV hydration, bowel rest until patient is pain free. Once pain free, would slowly increase her diet as tolerated. No surgical intervention is needed at this time to remove the gallbladder. Patient has had the opportunity to ask and have questions answered. Patient verbally understand and agrees with the proposed plan. We will continue to monitor this patient. Thank you for allowing us to participate in this patient's care. HPI Consult Data Date of Consult: 08/27/23 HPI Narrative Reason for Consultation: Acute pancreatitis HPI Narrative: MARICARMEN HARRISON, is a 33 F who presents with a 2 day history of cramping abdominal pain, nausea and vomiting. Patient also notes associated lack of appetite and liquid diarrhea. She notes similar symptoms approximately 8 months ago and was diagnosed with pancreatitis. She was hospitalized at that time for 2 days and treated with conservative measures. Patient states she noticed her symptoms this time felt similar and presented to the ED. Patient notes a history of opioid addiction and has been in recovery for 6 years. She is on Suboxone daily. She follows with [facility] as an outpatient. Patient notes she deals with anxiety intermittently and does take alprazolam for anxiety as needed. She notes Dr. Quiñones prescribes this medication from 180. Patient states she does consume 2-3 tall boys a night of beer. She notes on the weekends she will consume a few drinks of liquor. Patient states she had trouble with her blood pressure at her last hospitalization and was placed on 2 blood pressure medications, however she did not continue these medications as an outpatient. She notes seeing a novelty printing machine operator previously for her blood pressure, however per patient it was concluded that her elevated blood pressure was from her anxiety. She denies any pulmonary issues. She denies being a smoker. RUQ u/s was obtained demonstrating no wall thickening, no gallstones, no pericholecystic fluid, negative sonographic Borrego's sign. Normal common bile duct. Patient's white count is 10.6 to 8.1. Hgb is 15.8 to 12.9. Plt is 168 to 112. Potassium is 3.2 today. Total bilirubin is 1.80 to 1.50 today. AST 92 to 142, ALT 116 to 92, ALk phos 241 to 210. Lipase was 1551 on admission. [facility] Medical History (Updated 08/27/23 @ 10:28 by Sherrie SONI PAJana) Tubal Hx of opioid abuse Alcohol use Anxiety Heartburn Palpitations (spontaneous vaginal delivery) PROM (premature rupture of membranes) Home Medications ?Medication ?Instructions ?Recorded ?Last Taken ?Type buprenorphine 5.7 mg-naloxone 1.4 1 tab sublingual DAILY withdraw 08/31/20 01/19/23 History mg sublingual tablet (Zubsolv) acetaminophen 500 mg capsule 500 mg PO Q6H PRN pain 08/26/23 08/26/23 History alprazolam 1 mg tablet 1 mg PO DAILY PRN anxiety 08/26/23 Unknown History ondansetron 4 mg disintegrating 4 mg PO Q6H PRN nausea and vomiting 08/26/23 08/26/23 History tablet Allergy/AdvReac Type Severity Reaction Status Date / Time No Known Allergies Allergy Verified 08/26/23 13:10 Family History Father Cancer Brain Social History Smoking Status: Former smoker alcohol intake: never substance use type: does not use caffeine: Yes ROS Constitutional Constitutional: Reports systems reviewed and no addt'l complaints, except as documented Eyes Eyes: Reports systems reviewed and no addt'l complaints, except as documented ENT HEENT: Reports systems reviewed and no addt'l complaints, except as documented Cardiovascular Cardiovascular: Reports systems reviewed and no addt'l complaints, except as documented Respiratory/Chest Respiratory/Chest: Reports systems reviewed and no addt'l complaints, except as documented Gastrointestinal Gastrointestinal: Reports systems reviewed and no addt'l complaints, except as documented Genitourinary Genitourinary: Reports systems reviewed and no addt'l complaints, except as documented Musculoskeletal Musculoskeletal: Reports systems reviewed and no addt'l complaints, except as documented Integumentary Integumentary: Reports systems reviewed and no addt'l complaints, except as documented Neurologic Neurologic: Reports systems reviewed and no addt'l complaints, except as documented Psychiatric Psychiatric: Reports systems reviewed and no addt'l complaints, except as documented Endocrine Endocrinology: Reports systems reviewed and no addt'l complaints, except as documented Hematologic/Lymphatic Hematologic/Lymphatic: Reports systems reviewed and no addt'l complaints, except as documented Allergic/Immunologic Allergic/Immunologic: Reports systems reviewed and no addt'l complaints, except as documented Physical Exam Const alert, oriented x3 and no apparent distress HEENT normocephalic and head/scalp atraumatic Eyes PERRL Neck full ROM Lymph Lymphatic: no lymphadenopathy noted Resp normal respiratory effort and clear to auscultation bilaterally Cardio regular rate and regular rhythm GI GI Narrative: Abdomen- soft, pain to the left upper quadrant. Positive bowel sounds no CVA tenderness Back/Spine no CVA tenderness Extremity normal to inspection Skin no rashes or lesions noted Neuro no focal motor deficits and no sensory deficits noted Psych Appearance: grossly normal Attitude: calm Activity / Motor Behavior: appropriate eye contact Speech: normal speech Lab / Micro Data 08/27/23 06:50 08/27/23 06:50 Labs: Laboratory Results - last 24 hr 08/26/23 14:22: WBC 10.6, RBC 4.96, Hgb 15.8 H, Hct 45.0, MCV 90.7, MCH 31.9, MCHC 35.1, RDW Std Deviation 41.8, RDW Coeff of Tyra 12.6, Plt Count 168, MPV 10.6, Immature Gran % (Auto) 0.400, Neut % (Auto) 82.9 H, Lymph % (Auto) 10.8 L, [place] % (Auto) 4.9, Eos % (Auto) 0.7, Baso % (Auto) 0.3, Absolute Neuts (auto) 8.8 H, Absolute Lymphs (auto) 1.14, Nucleated RBC % 0, Sodium 133 L, Potassium 2.9 L, Chloride 93 L, Carbon Dioxide 28.0, Anion Gap 12, BUN 8, Creatinine 0.75, Est GFR (MDRD) Af Amer 115, Est GFR (MDRD) Non-Af 95, BUN/Creatinine Ratio 10.6, Glucose 161 H, Lactic Acid 1.7, Calcium 8.5, Total Bilirubin 1.80 H, AST 92 H, ALT 116 H, Alkaline Phosphatase 241 H, Total Protein 7.9, Albumin 4.0, Globulin 3.9, Albumin/Globulin Ratio 1.0, Lipase 1551 H 08/26/23 15:13: Urine Color Yellow, Urine Clarity Clear, Urine pH 8.0, Ur Specific [place] 1.010, Urine Protein 30 H, Urine Glucose (UA) Normal, Urine Ketones Negative, Urine Occult Blood 10 H, Urine Nitrite Positive H, Urine Bilirubin Negative, Urine Urobilinogen 1 H, Ur Leukocyte Esterase 500 H, Urine RBC 0 SEEN, Urine WBC 0-5 SEEN, Ur Squamous Epith Cells 0 SEEN, Urine Bacteria 1+, Urine Mucus 0 SEEN 08/27/23 06:50: WBC 8.1, RBC 4.11 L, Hgb 12.9, Hct 38.7, MCV 94.2, MCH 31.4, MCHC 33.3 D, RDW Std Deviation 44.1 H, RDW Coeff of Tyra 12.7, Plt Count 112 L, MPV 11.3, Immature Gran % (Auto) 0.500, Neut % (Auto) 73.4 H, Lymph % (Auto) 18.4 L, [place] % (Auto) 5.7, Eos % (Auto) 1.6, Baso % (Auto) 0.4, Absolute Neuts (auto) 6.0, Absolute Lymphs (auto) 1.49, Nucleated RBC % 0 Imaging Radiology Impression Abdomen/Pelvis CT 08/26/23 14:15 IMPRESSION: Pancreas appears heterogeneous with peripancreatic edema and inflammation consistent with acute pancreatitis. There is a cystic lesion along the dorsal talonavicular pancreas which may represent a small phlegmon or pseudocyst. Submucosal thickening in the proximal and mid transverse colon perhaps due to inflammation from the pancreatitis. This likely represents a focal colitis Fatty liver without a discrete lesion. There is persistent enlargement of the left lobe of the liver which extends across the midline and over the anterior aspect of the spleen. Normal appendix visualized Small bowel ileus Free fluid in the dependent pelvis Electronically Signed: Severino Small MD at 15:08 EDT , Gallbladder Ultrasound 08/26/23 15:45 IMPRESSION: Hepatomegaly. There is also fatty infiltration of the liver. No other acute abnormalities are identified. Electronically Signed: Frankie Viera MD at 16:50 EDT , Charges/Coding Visit Charges Office Visits / Consults: 60599 IP Consult L3
[2023-08-27 08:16] LABS: AST(SGOT) 142 U/L (15-37); Alanine Aminotransfer ALT/SGPT 92 U/L (13-56); Albumin, Serum 3.1 g/dL (3.2-5.0); Alkaline Phosphatase 210 U/L (45-117); Anion Gap 8 (5-15); BUN 8 mg/dL (7-18); BUN/Creat Ratio 14.7 RATIO (10-20); Calcium,Total 7.7 mg/dL (8.5-10.1); Chloride 102 mmol/L (98-107); Creatinine, Serum 0.54 mg/dL (0.55-1.02); EST Glomerular Filtration Rate 139 mL/min (>60); Est Glom Filt Rate - Afr Amer 168 mL/min (>60); Estimated Creatinine Clearance 146.91 ml/min; Globulin 3.2 g/dL (2.2-4.2); Glucose 91 mg/dL (74-106); Potassium 3.2 mmol/L (3.5-5.1); Protein, Total 6.3 g/dL (6.4-8.2); Sodium Level 135 mmol/L (136-145)
[2023-08-27] MEDS: Ketorolac 30 MG/ML Syringe IV ×3 (08:25→20:39)
[2023-08-27 08:30] VITALS: BP 172/114; PULSE 70; RESP 16; TEMP 36.9; O2SAT 98
[2023-08-27] MEDS: ALPRAZolam 0.5 MG Tablet 1 MG PO (08:35)
--- NOTE | 2023-08-27 10:55 | PCM.PN.HOSP ---
Subjective Subjective States that her pain is improved. Will trial her on a low-fat diet Objective Data Objective Data Vital Signs: Vital Signs Temp Pulse Resp BP Pulse Ox O2 Del Method 98.4 F 70 16 172/114 H 98 Room Air 08/27/23 08:30 08/27/23 08:30 08/27/23 08:30 08/27/23 08:30 08/27/23 08:30 08/27/23 08:30 Oxygen Delivery Method Room Air Weight: 158 lb 14.4 oz Body Mass Index (BMI) 27.2 Intake & Output: Intake and Output for Last 24 Hours 08/26/23 08/27/23 08/28/23 03:59 03:59 03:59 Intake Total 1347.92 / 1347.92 1000 / 1000 Balance 1347.92 / 1347.92 1000 / 1000 Lab / Micro Data 08/27/23 06:50 08/27/23 06:50 Labs: Laboratory Results - last 24 hr 08/26/23 14:22: WBC 10.6, RBC 4.96, Hgb 15.8 H, Hct 45.0, MCV 90.7, MCH 31.9, MCHC 35.1, RDW Std Deviation 41.8, RDW Coeff of Tyra 12.6, Plt Count 168, MPV 10.6, Immature Gran % (Auto) 0.400, Neut % (Auto) 82.9 H, Lymph % (Auto) 10.8 L, [place] % (Auto) 4.9, Eos % (Auto) 0.7, Baso % (Auto) 0.3, Absolute Neuts (auto) 8.8 H, Absolute Lymphs (auto) 1.14, Nucleated RBC % 0, Sodium 133 L, Potassium 2.9 L, Chloride 93 L, Carbon Dioxide 28.0, Anion Gap 12, BUN 8, Creatinine 0.75, Est GFR (MDRD) Af Amer 115, Est GFR (MDRD) Non-Af 95, BUN/Creatinine Ratio 10.6, Glucose 161 H, Lactic Acid 1.7, Calcium 8.5, Total Bilirubin 1.80 H, AST 92 H, ALT 116 H, Alkaline Phosphatase 241 H, Total Protein 7.9, Albumin 4.0, Globulin 3.9, Albumin/Globulin Ratio 1.0, Lipase 1551 H 08/26/23 15:13: Urine Color Yellow, Urine Clarity Clear, Urine pH 8.0, Ur Specific [place] 1.010, Urine Protein 30 H, Urine Glucose (UA) Normal, Urine Ketones Negative, Urine Occult Blood 10 H, Urine Nitrite Positive H, Urine Bilirubin Negative, Urine Urobilinogen 1 H, Ur Leukocyte Esterase 500 H, Urine RBC 0 SEEN, Urine WBC 0-5 SEEN, Ur Squamous Epith Cells 0 SEEN, Urine Bacteria 1+, Urine Mucus 0 SEEN 08/27/23 06:50: WBC 8.1, RBC 4.11 L, Hgb 12.9, Hct 38.7, MCV 94.2, MCH 31.4, MCHC 33.3 D, RDW Std Deviation 44.1 H, RDW Coeff of Tyra 12.7, Plt Count 112 L, MPV 11.3, Immature Gran % (Auto) 0.500, Neut % (Auto) 73.4 H, Lymph % (Auto) 18.4 L, [place] % (Auto) 5.7, Eos % (Auto) 1.6, Baso % (Auto) 0.4, Absolute Neuts (auto) 6.0, Absolute Lymphs (auto) 1.49, Nucleated RBC % 0, Sodium 135 L, Potassium 3.2 L, Chloride 102, Carbon Dioxide 25.0, Anion Gap 8, BUN 8, Creatinine 0.54 L, Estim Creat Clear Calc 146.91, Est GFR (MDRD) Af Amer 168, Est GFR (MDRD) Non-Af 139, BUN/Creatinine Ratio 14.7, Glucose 91, Calcium 7.7 L, Total Bilirubin 1.50 H, AST 142 H, ALT 92 H, Alkaline Phosphatase 210 H, Total Protein 6.3 L, Albumin 3.1 L, Globulin 3.2, Albumin/Globulin Ratio 1.0 Radiography Diagnostic Testing: Radiology Impression Abdomen/Pelvis CT 08/26/23 14:15 IMPRESSION: Pancreas appears heterogeneous with peripancreatic edema and inflammation consistent with acute pancreatitis. There is a cystic lesion along the dorsal talonavicular pancreas which may represent a small phlegmon or pseudocyst. Submucosal thickening in the proximal and mid transverse colon perhaps due to inflammation from the pancreatitis. This likely represents a focal colitis Fatty liver without a discrete lesion. There is persistent enlargement of the left lobe of the liver which extends across the midline and over the anterior aspect of the spleen. Normal appendix visualized Small bowel ileus Free fluid in the dependent pelvis Electronically Signed: Severino Small MD at 15:08 EDT , Gallbladder Ultrasound 08/26/23 15:45 IMPRESSION: Hepatomegaly. There is also fatty infiltration of the liver. No other acute abnormalities are identified. Electronically Signed: Frankie Viera MD at 16:50 EDT , Physical Exam Narrative General: Alert, Oriented x3, Cooperative, No apparent distress HEENT: Atraumatic, PERRLA, EOMI, Normocephalic Oral: Moist Mucosa Neck: Supple, No JVD Lungs: Clear to auscultation, Normal air movement, No rhonchi, No wheeze, No rales Cardiovascular: Regular rate, Regular Rhythm, Normal S1, Normal S2, No murmurs Abdomen: Soft, Non Tender, Non-Distended, No Hepato-splenomegaly Extremities: No edema, Capillary Refill Less than 3 Seconds Skin: No rashes, No breakdown Musculoskeletal: No Tenderness to Palpation of Joints or Extremities Neurological: No focal neurological deficits, Motor Exam 5/5 strength throughout, Sensory exam intact to light touch and pain Psych/Mental Status: Normal Affect, Appropriate Assessment & Plan Assessment/Plan (1) Acute pancreatitis: QUALIFIERS: Pancreatitis type: alcohol induced Acute pancreatitis complication: unspecified Qualified Code(s): K85.20 - Alcohol induced acute pancreatitis without necrosis or infection PLAN: Plan 1. Acute pancreatitis with elevated LFTs and fatty liver infiltration ? This does appear to be alcohol induced as she states that she drinks some of the nights and has increased drinks over the weekend, the binge alcohol intake tends to precipitate pancreatitis ? With her pain improved, will trial her on a low-fat diet ? Will obtain a lipid panel to rule out elevated triglycerides as a cause. Right upper quadrant ultrasound is negative for stone or choledocholithiasis ? Discussed with general surgery and as it does not appear that there is any surgical indication at this time, they can likely sign off ? In the meantime we will continue with IV fluids at 125 until we are sure that she can tolerate a diet ? Will follow-up labs in the morning ? I did discuss with her that on discharge I would like for her to try to abstain from alcohol completely for about 6 months and follow-up with gastroenterology as an outpatient any further workup that may be indicated 2. Essential HTN ? She is hypertensive despite not being on any medications at home ? Will start her on Norvasc and monitor DVT: Tanishanox Charges/Coding Visit Charges Inpatient E&M: 64099 Subs Hosp L2
[2023-08-27 11:11] LABS: Lipase 705 U/L (13-75)
[2023-08-27 11:15] VITALS: BP 165/105; PULSE 68; RESP 16; TEMP 37; O2SAT 97
[2023-08-27] MEDS: Potassium Chloride Oral Tablet 20 MEQ 40 MEQ PO (11:19)
[2023-08-27] MEDS: amLODIPine 10 MG Tablet PO (11:19)
[2023-08-27 11:31] LABS: Cholesterol 155 mg/dL (200); High Density Lipoprotein 48 mg/dL; Triglycerides 130 mg/dL; Very Low Density Lipoprotein 26 mg/dL (5-40)
[2023-08-27] MEDS: Cephalexin 500 MG Capsule PO ×2 (12:14→20:38)
--- NOTE | 2023-08-27 12:59 | CASEMGMT ---
RAJ ARCE Assessment Face to Face with patient for initial transition planning/care coordination assessment. RAJ ARCE introduced self and role at [facility], pt voices understanding. Pt is A&Ox4 and is resting comfortably in bed and is calm. Care providers, pharmacy, and demographics verified. Admitting dx: Acute Pancreatitis PCP: No PCP. Provider list given Specialists: Denies Preferred Pharmacy: [facility] Insurance: MOOSE/ [employer] Prescription Benefit: Yes LNOK: Khari Durán (M), Fredy Julian (SO) Living Arrangements: Pt lives with her SO and 3 children (ages 12, 8, & 5) in a 2 story home with a flat entrance. ADLs/IADLs: Ind Transportation: Self, SO DME: Denies all DME uses. Pt educated on location and costs of BP cost for home use. HHC/SNF: Denies history or needs ETOH: Pt states that she drinks a 6 pack per week and sometimes more. Pt?s goal: Home no needs Plan: 6-Click is 24. Pt denies the need for HHC or OP therapy at this time. Pt wishes to return home with no additional needs once medically ready. CM to follow. Aviva Singh RN, CM
--- NOTE | 2023-08-27 14:26 | CHAPLAIN ---
Type of Pastoral Visit _x__ Initial Visit ___ Follow-up Visit ___ On-call Visit ___ General Patient Visit ___ Spiritual Assessment ___ Family Conference ___ Bereavement ___ Rapid Response ___ Code Blue ___ Other (describe below) Pastoral Care Referral From __x_ Patient ___ Family ___ Nurse ___ Physician ___ Finisher [employer] ___ Income Tax Advisor ___ Other (describe below) Sacrament/Intervention _x__ Active listening ___ Anointing ___ Scientology ___ Bereavement ___ Communion _x__ Theresa exploration ___ _x__ Life review _x__ Prayer ___ Reconciliation ___ Sacrament of Sick _x__ Supportive presence ___ Wedding ___ Other (describe below) Pastoral Comments patient is welcoming and talkative; pt gives details on her health and her family; pt is 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
[2023-08-27 15:00] VITALS: BP 154/89; PULSE 70; RESP 15; TEMP 36.9; O2SAT 98
[2023-08-27 20:30] VITALS: BP 158/109; PULSE 94; RESP 18; TEMP 37; O2SAT 100
[2023-08-28] MEDS: 0.9% Saline Lock 10 ML Syringe IV ×2 (02:15→05:58)
[2023-08-28] MEDS: Morphine 2 MG/ML Syringe IV (02:16)
[2023-08-28] MEDS: 0.9% Normal Saline (1000mL) 1,000 ML 125 ML IV ×2 (02:17→10:20)
[2023-08-28 05:50] VITALS: BP 162/117; PULSE 84; RESP 16; TEMP 36.8; O2SAT 99
[2023-08-28] MEDS: Cephalexin 500 MG Capsule PO ×2 (05:54→13:17)
[2023-08-28] MEDS: Ketorolac 30 MG/ML Syringe IV (05:58)
[2023-08-28 07:17] LABS: Absolute Lymphocyte Count 1.54 X10^3/uL (0.83-4.51); Absolute Neutrophil Count 4.4 X10^3/uL (2.0-7.7); Basophil# 0.05 X10^3/uL; Basophil% 0.7 % (0-1); Eosinophil# 0.22 X10^3/uL; Eosinophils% 3.3 % (0-5); Hematocrit 36.7 % (37-47); Hemoglobin 12.4 g/dL (12.0-15.0); Lymphocyte # 1.54 X10^3/ul (0.83-4.51); Mean Corp Hgb Conc 33.8 g/dL (32-36); Mean Corpuscular Hgb 31.6 pg (27.0-32.0); Mean Corpuscular Volume 93.4 fL (81-99); Monocyte# 0.48 X10^3/uL; Monocyte% 7.2 % (0-10); NRBC Flagged by Analyzer 0 % (0-5); Neutrophil # 4.36 X10^3/uL (2.7-7.7); Neutrophil % 65.1 % (47-70); Platelet Count 112 K/mm3 (150-450); RBC Distribution Width CV 12.5 % (11.6-14.6); RBC Distribution Width SD 43.2 fl (35.1-43.9); Red Blood Count 3.93 M/mm3 (4.2-5.4); White Blood Count 6.7 K/mm3 (4.4-11.0)
[2023-08-28 08:05] LABS: ALB/GLOB Ratio 0.9 RATIO (0.9-2.4); AST(SGOT) 53 U/L (15-37); Alanine Aminotransfer ALT/SGPT 64 U/L (13-56); Albumin, Serum 3.1 g/dL (3.2-5.0); Alkaline Phosphatase 179 U/L (45-117); Anion Gap 7 (5-15); BUN 5 mg/dL (7-18); BUN/Creat Ratio 11.6 RATIO (10-20); Calcium,Total 7.8 mg/dL (8.5-10.1); Chloride 101 mmol/L (98-107); Creatinine, Serum 0.43 mg/dL (0.55-1.02); EST Glomerular Filtration Rate 181 mL/min (>60); Est Glom Filt Rate - Afr Amer 219 mL/min (>60); Estimated Creatinine Clearance 184.52 ml/min; Globulin 3.4 g/dL (2.2-4.2); Glucose 106 mg/dL (74-106); Potassium 2.9 mmol/L (3.5-5.1); Protein, Total 6.5 g/dL (6.4-8.2); Sodium Level 134 mmol/L (136-145)
[2023-08-28] MEDS: oxyCODONE 5 MG Tablet PO ×2 (09:53→15:06)
[2023-08-28 09:59] VITALS: BP 176/117; PULSE 81; RESP 17; TEMP 36.8; O2SAT 100
[2023-08-28] MEDS: amLODIPine 10 MG Tablet PO (10:20)
--- NOTE | 2023-08-28 11:33 | CASEMGMT ---
Physician is recommending alcohol cessation for patient. MARVEL met with patient. Introduced self and role at [facility]. SW asked patient if she would like any resources. Patient stated she already goes to [facility] for her Suboxone and she sees a counselor. Patient thanked MARVEL for checking in with her. Shayla VALLADARES
--- NOTE | 2023-08-28 11:46 | DCINST_ITS ---
Discharge Instructions Diet Discharge Diet: Low fat / Low cholesterol Activity Discharge Activity: Return to Normal Activity Dressing / Incision Call your doctor if you observe: Fever of 101 or Higher, Shortness of breath, Dizziness, Fainting spells, Swelling in the ankles, Chest pain and Increased palpitations (irregular heartbeat) Follow Up Care Test Results: Test results from this visit will be discussed in further detail at your follow- up appointment, if applicable. Discharge Plan Admission Admit Date/Time: 08/26/23 16:21 Attending Provider: Joe Bradford Primary Care Provider: Care Physician,No Primary Consulting Providers: Ike Cantrell; Nasima Miller Instructions Additional Instructions / Restrictions: follow-up with your PCP in 3 to 5 days to monitor your kidney function given the lisinopril you were started which can affect the Discharge Orders/Prescriptions Prescriptions: New amlodipine 10 mg Tablet 10 mg PO DAILY 30 Days Qty: 30 0RF cephalexin 500 mg Capsule 500 mg PO Q8 3 Days Qty: 9 0RF lisinopril 10 mg Tablet 10 mg PO DAILY 30 Days Qty: 30 0RF Continued Zubsolv 5.7-1.4 mg Tablet, Sublingual 1 tab SUBLINGUAL DAILY acetaminophen 500 mg capsule 500 mg PO Q6H PRN (Reason: pain) ondansetron 4 mg tablet,disintegrating 4 mg PO Q6H PRN (Reason: nausea and vomiting) alprazolam 1 mg tablet 1 mg PO DAILY PRN (Reason: anxiety) Referrals / Follow Up: Friend,Grant, [Med Staff - Active Staff] - Within 3 Months Care Physician,No Primary [Primary Care Provider] - Disposition Disposition (needs filled in before D/C Order can be placed): Home, Self Care
[2023-08-28] MEDS: ALPRAZolam 0.5 MG Tablet 1 MG PO (12:08)
[2023-08-28] MEDS: Potassium Chloride Oral Tablet 20 MEQ 60 MEQ PO (12:09)
[2023-08-28 12:15] VITALS: BP 163/110; PULSE 78
[2023-08-28 12:16] LABS: Magnesium 1.3 mg/dL (1.6-2.6); Phosphorus 2.5 mg/dL (2.5-4.9)
[2023-08-28] MEDS: Lisinopril 10 MG Tablet PO (12:19)
[2023-08-28] MEDS: Magnesium Sulfate 4gm/100mL 4 GM/100 ML IV.SOLN. IV (13:17)
--- NOTE | 2023-08-28 13:43 | CASEMGMT ---
Patient has order for discharge. RN CM in to discuss needs at discharge. Patient denies needs or help at discharge. Patient states [facility] Patient had no further questions or concerns.
--- NOTE | 2023-08-28 15:37 | PHA.DC_ITS ---
Pharmacy [facility] has performed discharge medication reconciliation and counseling for this patient. 1. CEPHALEXIN 500MG PO Q8 X 3 DAYS 2. AMLODIPINE 10MG PO DAILY 3. LISINOPRIL 10MG PO DAILY The patient's discharge medication list was reviewed for discrepancies and discrepancies were resolved. The patient was counseled on the following discharge medications and changes in medications for homegoing were reviewed. The Reason for Use, instructions for use, and potential side effects were reviewed for all new medications. The patient's questions regarding all of their medications were answered. The patient was able to verbally demonstrate an understanding of their discharge medications. Medications at Discharge Home Medications buprenorphine 5.7 mg-naloxone 1.4 mg sublingual tablet (Zubsolv) 1 tab sublingual DAILY withdraw 08/31/20 acetaminophen 500 mg capsule 500 mg PO Q6H PRN pain 08/26/23 alprazolam 1 mg tablet 1 mg PO DAILY PRN anxiety 08/26/23 ondansetron 4 mg disintegrating tablet 4 mg PO Q6H PRN nausea and vomiting 08/26/23 amlodipine 10 mg tablet 10 mg PO DAILY 30 days #30 tabs 08/28/23 cephalexin 500 mg capsule 500 mg PO Q8 3 days #9 caps 08/28/23 lisinopril 10 mg tablet 10 mg PO DAILY 30 days #30 tabs 08/28/23
--- NOTE | 2023-08-28 16:00 | PCM.DC.SUM ---
Providers Date of Admission: 08/26/23 Primary Care Physician: Marychuy Primary Care Phys Consultations 08/26/23 17:39 Consult: General Surgery Routine Consulting Provider: Ike Cantrell Reason for Consult: acute pancreatitis EMERGENT Consult: No MD Notified: Yes Date Notified: 08/26/23 Time Notified: 16:24 Method of Notification: ED Physician Initiated Reason For Visit: ACUTE PANCREATITIS Diagnosis Discharge Diagnosis (1) Acute pancreatitis: Status: Acute Code(s): K85.90 - Acute pancreatitis without necrosis or infection, unspecified Qualifiers: Pancreatitis type: alcohol induced Acute pancreatitis complication: unspecified Qualified Code(s): K85.20 - Alcohol induced acute pancreatitis without necrosis or infection Medications at Discharge Home Medications buprenorphine 5.7 mg-naloxone 1.4 mg sublingual tablet (Zubsolv) 1 tab sublingual DAILY withdraw 08/31/20 acetaminophen 500 mg capsule 500 mg PO Q6H PRN pain 08/26/23 alprazolam 1 mg tablet 1 mg PO DAILY PRN anxiety 08/26/23 ondansetron 4 mg disintegrating tablet 4 mg PO Q6H PRN nausea and vomiting 08/26/23 amlodipine 10 mg tablet 10 mg PO DAILY 30 days #30 tabs 08/28/23 cephalexin 500 mg capsule 500 mg PO Q8 3 days #9 caps 08/28/23 lisinopril 10 mg tablet 10 mg PO DAILY 30 days #30 tabs 08/28/23 Hospital Course Operations None Procedures None Summary of Care Provided Minutes Spent on Discharge: 36 Hospital Course: Per HPI: MARICARMEN HARRISON, is a 33 F with a PMH as outlined who presents via the ED on 08/26/2023 with a complaint of abdominal pain for 2 days prior to admission. She drinks beer on occasion. She had pancreatitis 7-8 months ago. She complained of nausea and vomiting also, but denied any fever, chills or any other symptoms. Review of systems was otherwise negative. Vitals in the ED were BP of 149/108, OR of 101, RR of 17 and she was saturating at 97% on room air. CBC showed wbc of 10.6, hb of 15.8 and platelets of 168. BMP showed sodium of 133, potassium of 2.9, Cr of 0.75, total bilirubin of 1.8 and AST/ALT/ALP mildly elevated at 92/116/241. Lipase was also elevated at 1551. Urinalysis showed 1+ bacteria with positive nitrites. CT of the abdomen and pelvis showed pancreatitis with peripancreatic edema and inflammation as well as a cystic lesion along the dorsal part of the pancreas which may represent a small phlegmon or pseudocyst and there was also submucosal thickening in the proximal and mid transverse colon perhaps due to inflammation from the pancreatitis. She has been admitted to be managed for acute pancreatitis. General surgery was contacted by ED and they requested for gallbladder ultrasound which has been done and read is pending. Hospital Course: 1. Recurrent alcohol induced pancreatitis with elevated LFTs and fatty liver infiltration?33-year-old female had an episode of pancreatitis back in January 2023 presents to the hospital with recurrent epigastric abdominal pain with an elevated lipase consistent with pancreatitis. CT scan of the abdomen and pelvis also demonstrated peripancreatic stranding. Right upper quadrant ultrasound was obtained and gallbladder is normal with normal. Triglycerides were obtained as well which were normal, based on her history she does have a little bit of a binge drinking history where she will drink most days of the week and have an increase drinking on the weekends. I discussed with her the need to quit drinking completely and to follow-up with gastroenterology as an outpatient. On 08/27/2023, I advanced her diet to low-fat regular diet which she tolerated without any significant pain. This morning she also had breakfast without any increased pain. I discussed with her the plan for discharge and she expressed understanding the risk benefits of going home and would like to go home today. I did replace her potassium and give her a dose of magnesium as this was low. I did ask nursing staff to also help her find her a primary care physician for outpatient lab work and monitoring including renal function test given that she is started on lisinopril. 2. Essential HTN?she was found to be significantly hypertensive both systolic and diastolic. She was started on Norvasc 10 mg p.o. daily and lisinopril 10 mg was started today. I do recommend outpatient monitoring. Physical Exam Narrative General: Alert, Oriented x3, Cooperative, No apparent distress HEENT: Atraumatic, PERRLA, EOMI, Normocephalic Oral: Moist Mucosa Neck: Supple, No JVD Lungs: Clear to auscultation, Normal air movement, No rhonchi, No wheeze, No rales Cardiovascular: Regular rate, Regular Rhythm, Normal S1, Normal S2, No murmurs Abdomen: Soft, Non Tender, Non-Distended, No Hepato-splenomegaly Extremities: No edema, Capillary Refill Less than 3 Seconds Skin: No rashes, No breakdown Musculoskeletal: No Tenderness to Palpation of Joints or Extremities Neurological: No focal neurological deficits, Motor Exam 5/5 strength throughout, Sensory exam intact to light touch and pain Psych/Mental Status: Normal Affect, Appropriate Weight / BMI Weight Weight: 158 lb 15.253 oz Body Mass Index (BMI) 27.2 ABG / Lab / Microbiology Data 08/28/23 06:50 08/28/23 06:50 Laboratory: Laboratory Results - last 24 hr 08/28/23 06:50: WBC 6.7, RBC 3.93 L, Hgb 12.4, Hct 36.7 L, MCV 93.4, MCH 31.6, MCHC 33.8, RDW Std Deviation 43.2, RDW Coeff of Tyra 12.5, Plt Count 112 L, MPV 11.0, Immature Gran % (Auto) 0.700, Neut % (Auto) 65.1, Lymph % (Auto) 23.0, [place] % (Auto) 7.2, Eos % (Auto) 3.3, Baso % (Auto) 0.7, Absolute Neuts (auto) 4.4, Absolute Lymphs (auto) 1.54, Nucleated RBC % 0, Sodium 134 L, Potassium 2.9 L, Chloride 101, Carbon Dioxide 26.0, Anion Gap 7, BUN 5 L, Creatinine 0.43 L, Estim Creat Clear Calc 184.52, Est GFR (MDRD) Af Amer 219, Est GFR (MDRD) Non-Af 181, BUN/Creatinine Ratio 11.6, Glucose 106, Calcium 7.8 L, Phosphorus 2.5, Magnesium 1.3 L, Total Bilirubin 1.00, AST 53 H, ALT 64 H, Alkaline Phosphatase 179 H, Total Protein 6.5, Albumin 3.1 L, Globulin 3.4, Albumin/Globulin Ratio 0.9 Microbiology: Microbiology 08/26/23 15:13 Urine, Clean Catch Urine Culture - Final Presumptive E. coli D/C Instructions Discharge Diet: Low fat / Low cholesterol Call your doctor if you observe: Fever of 101 or Higher, Shortness of breath, Dizziness, Fainting spells, Swelling in the ankles, Chest pain and Increased palpitations (irregular heartbeat) Meaningful Use Info Meaningful Use Meaningful Use Diagnoses (Choose all that apply): None applicable Ischemic Stroke Statin Dosing Therapy Reference: STATIN DOSE THERAPY REFERENCE: * Patients > 75 years receive moderate or high dose statin therapy. * Patients 75 years or YOUNGER should receive HIGH intensity statin dose unless contraindicated. You will be required to document reason for non-treatment if statin daily dose does not meet guidelines. HIGH DOSE STATIN THERAPY DAILY Atorvastatin > than or = to 40 mg Rosuvastatin > than or = to 20 mg Amlodipine + Atorvastatin > than or = to 2.5/40 mg Ezetimibe + Simvastatin 10/80 mg Simvastatin 80mg Discharge Plan Admission Admit Date/Time: 08/26/23 16:21 Attending Provider: Joe Bradford Primary Care Provider: Care Physician,No Primary Consulting Providers: Ike Cantrell; Nasima Miller Instructions Additional Instructions / Restrictions: follow-up with your PCP in 3 to 5 days to monitor your kidney function given the lisinopril you were started which can affect the Discharge Orders/Prescriptions Prescriptions: New amlodipine 10 mg Tablet 10 mg PO DAILY 30 Days Qty: 30 0RF cephalexin 500 mg Capsule 500 mg PO Q8 3 Days Qty: 9 0RF lisinopril 10 mg Tablet 10 mg PO DAILY 30 Days Qty: 30 0RF Continued Zubsolv 5.7-1.4 mg Tablet, Sublingual 1 tab SUBLINGUAL DAILY acetaminophen 500 mg capsule 500 mg PO Q6H PRN (Reason: pain) ondansetron 4 mg tablet,disintegrating 4 mg PO Q6H PRN (Reason: nausea and vomiting) alprazolam 1 mg tablet 1 mg PO DAILY PRN (Reason: anxiety) Referrals / Follow Up: Grant Paiz DO [Med Staff - Active Staff] - Within 3 Months Care Physician,No Primary [Primary Care Provider] - Disposition Disposition (needs filled in before D/C Order can be placed): Home, Self Care Charges/Coding Visit Charges Inpatient E&M: 22321 Disch Hosp >30min
[2023-08-28 17:35] VITALS: BP 148/100; PULSE 91; RESP 20; TEMP 37; O2SAT 97
[2023-08-28 18:00] VITALS: BP 148/100
[2023-08-29 15:09] LABS: Giardia Lamblia, Stool EIA Negative (Negative)
== END 2023-08-28 18:24 | disposition home or self-care (01) | DRG 282 ==
LOC: ED 16:04 → PCU 16:43
PROVIDERS: Physician Assistant; Admitting Provider Student in an Organized Health Care Education/Training Program; Emergency Provider Emergency Medicine; Visit Provider Family Medicine
DX: K85.20 Alcohol induced acute pancreatitis without necrosis or infection (principal); K56.7 Ileus, unspecified; K76.0 Fatty (change of) liver, not elsewhere classified; I10 Essential (primary) hypertension; E87.6 Hypokalemia; K80.50 Calculus of bile duct without cholangitis or cholecystitis without obstruction; K86.3 Pseudocyst of pancreas; Z87.891 Personal history of nicotine dependence
CPT/HCPCS: 36415; 74177; 76705; 80053; 80061; 81001; 83605; 83690; 83735; 84100; 85025; 87086; 87088; 87186; 87329; 99284; J7030; Q9967; A4216; J2405

== ENCOUNTER → 2023-11-20 | Outpatient (CLI) | payer MEDICAID, SELFPAY ==
[2023-11-20 15:19] LABS: Absolute Lymphocyte Count 1.84 X10^3/uL (0.83-4.51); Absolute Neutrophil Count 3.8 X10^3/uL (2.0-7.7); Basophil# 0.08 X10^3/uL; Basophil% 1.3 % (0-1); Eosinophil# 0.04 X10^3/uL; Eosinophils% 0.6 % (0-5); Hematocrit 38.2 % (37-47); Lymphocyte # 1.84 X10^3/ul (0.83-4.51); Lymphocyte % 29.5 % (19-41); Mean Corpuscular Hgb 32.4 pg (27.0-32.0); Mean Corpuscular Volume 95.3 fL (81-99); Mean Platelet Vol. 10.8 fl (6.2-12.0); Monocyte# 0.42 X10^3/uL; Monocyte% 6.7 % (0-10); NRBC Flagged by Analyzer 0 % (0-5); Neutrophil # 3.84 X10^3/uL (2.7-7.7); Neutrophil % 61.6 % (47-70); Platelet Count 341 K/mm3 (150-450); RBC Distribution Width CV 12.2 % (11.6-14.6); Red Blood Count 4.01 M/mm3 (4.2-5.4); White Blood Count 6.2 K/mm3 (4.4-11.0)
[2023-11-20 15:36] LABS: Vitamin D,25 Hydroxy 31.1 ng/mL
[2023-11-20 15:53] LABS: ALB/GLOB Ratio 0.9 RATIO (0.9-2.4); AST(SGOT) 320 U/L (15-37); Alanine Aminotransfer ALT/SGPT 84 U/L (13-56); Albumin, Serum 3.4 g/dL (3.2-5.0); Alkaline Phosphatase 185 U/L (45-117); Anion Gap 12 (5-15); BUN 6 mg/dL (7-18); BUN/Creat Ratio 10.7 RATIO (10-20); Calcium,Total 8.1 mg/dL (8.5-10.1); Chloride 102 mmol/L (98-107); Cholesterol 191 mg/dL (200); Creatinine, Serum 0.56 mg/dL (0.55-1.02); EST Glomerular Filtration Rate 133 mL/min (>60); Est Glom Filt Rate - Afr Amer 161 mL/min (>60); Follicle Stimulating Hormone < 0.2 mIU/mL; Globulin 3.9 g/dL (2.2-4.2); Glucose 87 mg/dL (74-106); High Density Lipoprotein 53 mg/dL; Luteinizing Hormone < 0.2 mIU/mL; Potassium 3.2 mmol/L (3.5-5.1); Protein, Total 7.3 g/dL (6.4-8.2); Sodium Level 138 mmol/L (136-145); Triglycerides 570 mg/dL
[2023-11-22 08:16] LABS: PROGESTERONE 0.2 ng/mL (.)
[2023-11-29 16:09] LABS: Estrogen, Total, Serum 76 pg/mL (.)
== END | disposition home or self-care (01) ==
LOC: MFPLAB 11:49
PROVIDERS: Visit Provider Family Medicine
DX: N94.6 Dysmenorrhea, unspecified (principal); R03.0 Elevated blood-pressure reading, without diagnosis of hypertension
CPT/HCPCS: 36415; 80053; 80061; 82306; 82672; 83001; 83002; 84144; 84443; 85025

== ENCOUNTER 2024-06-26 12:47 | Inpatient (IN) | payer MEDICAID, SELFPAY ==
[2024-06-26] VITALS (7 sets, daily range): BP systolic 145–175; BP diastolic 99–116; PULSE 78–145; RESP 16–19; TEMP 36.6–37.2; O2SAT 98–100; BMI 28.3; BMI 27.8
--- NOTE | 2024-06-26 13:18 | EKG12_ITS ---
Test Reason : high hr Blood Pressure : */* mmHG Vent. Rate : 127 BPM Atrial Rate : 127 BPM P-R Int : 128 ms QRS Dur : 80 ms QT Int : 404 ms P-R-T Axes : 73 60 71 degrees QTcB Int : 587 ms Critical Test Result: Long QTc Sinus tachycardia Nonspecific ST and T wave abnormality Abnormal ECG Confirmed by RADHIKA NICHOLS, CADEN ([id number]), film and video editor NANCY GILLETTE ([id number]) on 06/28/2024 6:41:20 AM Referred By: Bb Confirmed By: CADEN GARRIDO MD
[2024-06-26] MEDS: Ondansetron 4 MG/2 ML Vial IV (13:26)
[2024-06-26] MEDS: 0.9% Normal Saline (1000mL) 1,000 ML 999 ML IV (13:26)
[2024-06-26] MEDS: Lorazepam 2 MG/ML WCH Syringe 1 MG IV (13:29)
[2024-06-26 13:31] LABS: Absolute Lymphocyte Count 1.83 X10^3/uL (0.83-4.51); Absolute Neutrophil Count 6.7 X10^3/uL (2.0-7.7); Basophil# 0.06 X10^3/uL; Basophil% 0.7 % (0-1); Eosinophil# 0.03 X10^3/uL; Eosinophils% 0.3 % (0-5); Hematocrit 38.4 % (37-47); Hemoglobin 13.7 g/dL (12.0-15.0); Lymphocyte # 1.83 X10^3/ul (0.83-4.51); Mean Corp Hgb Conc 35.7 g/dL (32-36); Mean Corpuscular Hgb 32.9 pg (27.0-32.0); Mean Corpuscular Volume 92.1 fL (81-99); Mean Platelet Vol. 11.3 fl (6.2-12.0); Monocyte# 0.45 X10^3/uL; Monocyte% 4.9 % (0-10); NRBC Flagged by Analyzer 0 % (0-5); Neutrophil % 73.4 % (47-70); Platelet Count 158 K/mm3 (150-450); RBC Distribution Width CV 15.6 % (11.6-14.6); RBC Distribution Width SD 51.1 fl (35.1-43.9); Red Blood Count 4.17 M/mm3 (4.2-5.4); White Blood Count 9.1 K/mm3 (4.4-11.0)
[2024-06-26 13:41] LABS: Prothrombin Time (Protime)PT. 13.6 SECONDS (11.7-14.9)
[2024-06-26 13:42] LABS: Internal QC Validated? YES +Cl - CLEAR BKGD; Pregnancy, Serum, hCG Quali. NEGATIVE Negative
[2024-06-26 13:56] LABS: ALB/GLOB Ratio 1.3 RATIO (0.9-2.4); AST(SGOT) 75 U/L (<=31); Alanine Aminotransfer ALT/SGPT 33 U/L (<=34); Albumin, Serum 4.7 g/dL (3.5-5.0); Alkaline Phosphatase 234 U/L (35-104); Anion Gap 22 (5-15); BUN 8 mg/dL (4-19); BUN/Creat Ratio 12.5 RATIO (10-20); Calcium,Total 9.1 mg/dL (7.6-11.0); Carbon Dioxide 19.1 mmol/L (21.0-32.0); Chloride 92 mmol/L (98-108); Creatinine, Serum 0.68 mg/dL (0.70-1.20); EST Glomerular Filtration Rate 119 (>60); Estimated Creatinine Clearance 118.76 ml/min (50-250); Globulin 3.5 g/dL (2.2-4.2); Glucose 140 mg/dL (70-99); Lipase 33 U/L (13-75); Potassium 2.8 mmol/L (3.3-5.1); Protein, Total 8.3 g/dL (5.9-8.4); Sodium Level 133 mmol/L (133-145); Total Bilirubin 1.49 mg/dL (0.00-1.30)
[2024-06-26 13:56] LABS: Amphetamine Urine NEGATIVE (<1000 ng/mL); Barbiturate Urine NEGATIVE (< 200 ng/mL); Benzodiazepine Urine PRESUMPTIVE POSITIVE (< 200 ng/mL); Buprenorphine Urine PRESUMPTIVE POSITIVE (< 200 ng/mL); Cocaine Urine NEGATIVE (< 300 ng/mL); Fentanyl, Urine NEGATIVE; Methadone Urine NEGATIVE (< 300 ng/mL); Opiates Urine NEGATIVE (< 300 ng/mL); Oxycodone, Urine NEGATIVE (< 100 ng/mL); PCP Urine NEGATIVE (< 25 ng/mL); THC Urine NEGATIVE (< 50 ng/mL)
[2024-06-26 13:57] LABS: Alcohol, Blood (Medical)-Serum < 10.1 mg/dL (<=10.0)
--- NOTE | 2024-06-26 14:01 | EX.ED.DYSGE1 ---
HPI History of Present Illness Chief Complaint: Nausea/Vomiting/Diarrhea Informant: patient Narrative Narrative: Patient presenting to the ER with abdominal pain, vomiting, diarrhea without blood or melena for the past 4 days or so. She states she is a heavy alcohol drinker and has been daily/nightly for the past 2 years or so regularly, she states it typically is 8 beers a day but they are tall boys and often 8%. She states she has had pancreatitis a couple of times related to drinking. 4 days ago after drinking she felt like she was getting pancreatitis pain and nausea/vomiting/diarrhea, so she stopped drinking and the pain has dissipated, but now she feels like her heart is racing, she feels shaky, and the vomiting and diarrhea persists. She does not feel well. No fevers or chills. She has had no alcohol in about 2 days except for this morning she tried to drink half of a beer because she felt like maybe this was withdrawal, but she vomited it up shortly thereafter. She states in the past 2 or 3 days because of the symptoms, she has had no sleep, and now is starting to have some mild hallucinations without hearing any voices or seeing people, but things like some unusual movements that she was doing with her fingers that felt like opening a lunchable and then she thought, why was I doing that. [facility] Medical History Tubal Hx of opioid abuse Alcohol use Anxiety Heartburn Palpitations (spontaneous vaginal delivery) PROM (premature rupture of membranes) Home Medications ?Medication ?Instructions ?Recorded ?Last Taken ?Type buprenorphine 5.7 mg-naloxone 1.4 1 tab sublingual DAILY withdraw 08/31/20 01/19/23 History mg sublingual tablet (Zubsolv) alprazolam 1 mg tablet 1 mg PO DAILY PRN anxiety 08/26/23 Unknown History ondansetron 4 mg disintegrating 4 mg PO Q6H PRN nausea and vomiting 08/26/23 08/26/23 History tablet amlodipine 10 mg tablet 10 mg PO DAILY 30 days #30 tabs 08/28/23 Unknown Rx lisinopril 10 mg tablet 10 mg PO DAILY 30 days #30 tabs 08/28/23 Unknown Rx Allergy/AdvReac Type Severity Reaction Status Date / Time No Known Allergies Allergy Verified 06/26/24 12:48 Family History Father Cancer Brain Social History household members: significant other housing: apartment Smoking Status: Former smoker alcohol intake: never substance use type: does not use caffeine: Yes ROS ROS ED Constitutional Constitutional ED: Reports fatigue; Denies chills or fever(s) Eyes Eyes: Denies change in vision or diplopia ENT ENT ED: Denies rhinorrhea or sore throat Cardiovascular Cardiovascular: Reports racing heartbeat; Denies chest pain Respiratory/Chest Respiratory/Chest: Denies cough or dyspnea Gastrointestinal Gastrointestinal: Reports diarrhea, nausea and vomiting; Denies abdominal pain, hematemesis, hematochezia or melena Genitourinary Genitourinary ED: Denies dysuria or hematuria Musculoskeletal Musculoskeletal: Denies back pain or neck pain Integumentary Denies abscess or rash Neurologic Neurologic: Denies headache(s), paresthesias, seizure-like activity, seizures or weakness Psychiatric Psychiatric: Reports as per HPI, anxiety and hallucinations; Denies suicidal thoughts EXAM Physical Exam Const Vital Signs: 06/26/24 12:48 06/26/24 14:47 06/26/24 16:00 Temperature 98.6 F Temperature Source Oral Pulse Rate 145 H 87 78 Respiratory Rate 18 19 H 16 Blood Pressure 167/116 H 145/99 H 159/104 H Blood Pressure Mean 133 114 122 Pulse Ox 98 99 98 Oxygen Delivery Method Room Air Positive well nourished and well developed General Appearance ED: well developed and NAD HEENT Reports moist mucous membranes normocephalic and atraumatic Eyes PERRL and EOMs intact bilaterally Neck full ROM and supple Resp normal respiratory effort and clear to auscultation bilaterally Cardio regular rate, regular rhythm and no murmurs GI non-tender and non-distended Auscultation: normoactive bowel sounds Palpation: soft Back/Spine no CVA tenderness General Back: other FROM Extremity normal to inspection General Extremety ED: Negative for edema, pulses abnormal or tenderness General Extremity: Negative for edema or pulses abnormal Neuro oriented x3, CN's II-XII intact bilaterally and no sensory deficits noted Sensorium / Orientation: awake and alert Motor Exam: strength 5/5 throughout Skin no rashes or lesions noted and no wounds MDM MDM MDM Narrative Medical decision making narrative: Patient has benign abdomen now, she states her abdominal pain is gone. My suspicion is that she is in alcohol withdrawal; her hypertension and tachycardia support this along with her symptoms and abrupt stop and inability to keep any small amount of alcohol down given all of the vomiting she is having. Therefore in addition to running labs to rule out pancreatitis, which I did with a normal lipase, gave her IV fluids, Zofran, and Ativan. I also counseled her on staying in the hospital to help get her out of alcohol withdrawal, she has 3 kids at home and she does have someone there with them, so she was amenable to that. However her chemistries show that her anion gap is elevated and she has low potassium likely related to all of this, but this indicates that she may be in alcoholic ketoacidosis. Indeed her alcohol level is 0. I added on beta hydroxybutyrate and obtained a venous blood gas in addition to starting some potassium replacement. The beta-hydroxybutyrate is elevated however her venous blood gas shows that she is not acidotic. She then was able to give us a urine sample, she states that she was having trouble going but did not have any problems urinating earlier today, but she did have some mild discomfort in her low back, the urine looks infected. I am sending it for cultures and adding a lactic acid on; in the meanwhile she is feeling better after IV fluids, Zofran, Ativan and her heart rate has come down to normal. Blood pressure still elevated but better, 145/99. Lactate returned negative, arguing against sepsis. Patient is amenable to staying in the hospital for detox, she wants to stop drinking and states I am ready. Lab Data Attestation: I reviewed the patient's lab results. Labs: Laboratory Results - last 24 hr 06/26/24 06/26/24 06/26/24 13:18 13:25 14:35 WBC 9.1 RBC 4.17 L Hgb 13.7 Hct 38.4 MCV 92.1 MCH 32.9 H MCHC 35.7 RDW Std Deviation 51.1 H RDW Coeff of Tyra 15.6 H Plt Count 158 MPV 11.3 Immature Gran % (Auto) 0.700 Neut % (Auto) 73.4 H Lymph % (Auto) 20.0 [place] % (Auto) 4.9 Eos % (Auto) 0.3 Baso % (Auto) 0.7 Absolute Neuts (auto) 6.7 Absolute Lymphs (auto) 1.83 Nucleated RBC % 0 PT 13.6 INR 1.0 Sodium 133 Potassium 2.8 L Chloride 92 L Carbon Dioxide 19.1 L Anion Gap 22 H BUN 8 Creatinine 0.68 L Estim Creat Clear Calc 118.76 Est GFR (MDRD) Non-Af 119 BUN/Creatinine Ratio 12.5 Glucose 140 H Lactic Acid Calcium 9.1 Total Bilirubin 1.49 H AST 75 H ALT 33 Alkaline Phosphatase 234 H Total Protein 8.3 Albumin 4.7 Globulin 3.5 Albumin/Globulin Ratio 1.3 Lipase 33 b-Hydroxybutyric mmol/L 1.3 Serum , Qual NEGATIVE Urine Color [place] Urine Clarity Cloudy Urine pH 6.0 Ur Specific [place] 1.020 Urine Protein 100 H Urine Glucose (UA) Normal Urine Ketones 5 H Urine Occult Blood 25 H Urine Nitrite Positive H Urine Bilirubin 3 H Urine Urobilinogen 8 H Ur Leukocyte Esterase 500 H Urine RBC 0-5 SEEN Urine WBC 25-50 SEEN Ur Squamous Epith Cells 0-5 SEEN Urine Bacteria 1+ Hyaline Casts 0-5 SEEN Urine Mucus 4+ Urine Opiates Screen NEGATIVE U Buprenorphine Qual PRESUMPTIVE POSITIVE Ur Oxycodone Screen NEGATIVE Urine Methadone Screen NEGATIVE Urine Fentanyl Screen NEGATIVE Ur Barbiturates Screen NEGATIVE Ur Phencyclidine Scrn NEGATIVE Ur Amphetamines Screen NEGATIVE U Benzodiazepines Scrn PRESUMPTIVE POSITIVE Urine Cocaine Screen NEGATIVE U Cannabinoids Screen NEGATIVE Ethyl Alcohol < 10.1 06/26/24 15:22 WBC RBC Hgb Hct MCV MCH MCHC RDW Std Deviation RDW Coeff of Tyra Plt Count MPV Immature Gran % (Auto) Neut % (Auto) Lymph % (Auto) [place] % (Auto) Eos % (Auto) Baso % (Auto) Absolute Neuts (auto) Absolute Lymphs (auto) Nucleated RBC % PT INR Sodium Potassium Chloride Carbon Dioxide Anion Gap BUN Creatinine Estim Creat Clear Calc Est GFR (MDRD) Non-Af BUN/Creatinine Ratio Glucose Lactic Acid < 1.0 Calcium Total Bilirubin AST ALT Alkaline Phosphatase Total Protein Albumin Globulin Albumin/Globulin Ratio Lipase b-Hydroxybutyric mmol/L Serum , Qual Urine Color Urine Clarity Urine pH Ur Specific [place] Urine Protein Urine Glucose (UA) Urine Ketones Urine Occult Blood Urine Nitrite Urine Bilirubin Urine Urobilinogen Ur Leukocyte Esterase Urine RBC Urine WBC Ur Squamous Epith Cells Urine Bacteria Hyaline Casts Urine Mucus Urine Opiates Screen U Buprenorphine Qual Ur Oxycodone Screen Urine Methadone Screen Urine Fentanyl Screen Ur Barbiturates Screen Ur Phencyclidine Scrn Ur Amphetamines Screen U Benzodiazepines Scrn Urine Cocaine Screen U Cannabinoids Screen Ethyl Alcohol ABG Data ABG results: ABG 06/26/24 14:58 Specimen Type PEPITO Sample Site Not entered VBG pH 7.45 H VBG pO2 24 L VBG HCO3 25 VBG Total CO2 26 VBG O2 Sat (Calc) 46 L VBG Base Excess 1 POC Mix VBG pCO2 Pt Tmp 35.8 L O2 Delivery Device Room Air Rhythm Strip Rhythm Strip: Sinus Tach Rate: 130 Ectopy: None EKG Initial EKG: Attestation: I personally reviewed and interpreted this EKG as follows: Interpretation: No Acute Injury Pattern, Sinus Tachycardia and Non-Specific ST Changes Management Discussion w/another healthcare provider: Hospitalist Discharge Plan Dx/Rx/DC Orders Clinical Impression: Alcohol withdrawal, Acute hypokalemia, Nausea vomiting and diarrhea Disposition Disposition: Acute Care Hospital [facility]
[2024-06-26 14:41] LABS: Color, Urine Amber (Yellow); Glucose, Dipstick Normal (Normal); Ketone-Dipstick 5 mg/dl (Negative); Leukocyte Esterase-Dipstick 500 /ul (Negative); Nitrite-Dipstick Positive (Negative); Occult Blood-Urine 25 /ul (Negative); Protein-Dipstick 100 mg/dl (Negative); Urine Clarity Cloudy (Clear); Urine Urobilinogen 8 mg/dl (Normal)
[2024-06-26 14:44] LABS: Urine Bilirubin Dipstick 3 mg/dL (Negative)
[2024-06-26 14:47] LABS: BETA-HYDROXYBUTYRATE 1.3 mmol/L (0.0-0.3)
[2024-06-26 15:01] LABS: Blood Gas Specimen Type VEN; O2 Delivery Device Room Air; SITE Not entered; VBG BASE EXCESS 1 mmol/L (-1.0-3.5); VBG Bicarbonate 25 mmol/L (22-26); VBG PO2 24 mmHg (25-40); VBG SO2 46 % (50-70); VBG TCO2 26 mmol/L (23-33); VBG pCO2 35.8 mmHg (41-51); VBG pH 7.45 (7.32-7.42)
[2024-06-26 15:03] LABS: Bacteria 1+ /hpf (None Seen); Hyaline Cast 0-5 SEEN /lpf (0-5); Mucous, Urine 4+ /hpf (<or=2+); Red Blood Cells-Urine 0-5 SEEN /hpf (0-5); Squamous Epithelial Cells - UA 0-5 SEEN /hpf (5-10)
[2024-06-26 15:04] LABS: White Blood Cells 25-50 SEEN /hpf (0-5)
[2024-06-26] MEDS: Potassium Chloride 10mEq/100mL 10 MEQ/100 ML IV.SOLN. 100 MEQ IV BOLUS (15:20)
[2024-06-26 16:08] LABS: Lactic Acid < 1.0 mmol/L (0.0-2.0)
--- NOTE | 2024-06-26 16:20 | PCM.HP.STD ---
HPI - General General Date of Admission: 06/26/24 Date of Service: 06/26/24 Chief Complaint: Abdominal pain with nausea/vomiting and anxiety HPI Narrative MARICARMEN HARRISON, is a 33 F who presented to [facility] ED on 06/26/2024 with abdominal pain with nausea/vomiting and anxiety. Patient is a heavy alcohol drinker, has been drinking daily for the past 2 years or so. She previously drank hard liquor but reports having 2 episodes of pancreatitis in the past few years so she has gone down to only beer. She is drinking typically about 8 beers per day but they are tall boys and often 8%. She felt like she was getting pancreatitis about 4 days ago so she abruptly stopped drinking. She tried having a small amount of alcohol about 2 days ago but was not able to keep it down. She has now had worsening anxiety with no sleep over the past 2 days and mild hallucinations. No prior history of alcohol withdrawal or seizures that she notes. Has never been through alcohol detox before. In the ED she was initially tachycardic to the 140s and hypertensive to the 160s over 110s. She was given a dose of IV Ativan 2 mg with significant improvement in her heart rate and blood pressure. Labs notable for potassium 2.8, otherwise unremarkable. UA was mildly infectious appearing. Given high concern for alcohol withdrawal, hospitalist was contacted for admission. I saw the patient at bedside in the ED. Patient was mildly anxious appearing and somewhat flushed appearing in the face but otherwise sitting up in bed and answering questions appropriately. She stated that she felt significantly better overall after being given the dose of IV Ativan. She is interested in quitting drinking alcohol altogether and is amenable to doing a phenobarbital taper while here. Notably she does have 3 on kids at home and her works, so she is having to figure out how to get care for her kids while she is here. She denies any abdominal pain or discomfort currently. She does have history of frequent UTIs and has had mild burning with urination over the past few days. Notes that she also has not been peeing much as she has been dehydrated from not being able to keep much down. No other acute concerns at this time. [facility] Medical History Tubal Hx of opioid abuse Alcohol use Anxiety Heartburn Palpitations (spontaneous vaginal delivery) PROM (premature rupture of membranes) Home Medications ?Medication ?Instructions ?Recorded ?Last Taken ?Type buprenorphine 5.7 mg-naloxone 1.4 1 tab sublingual DAILY withdraw 08/31/20 01/19/23 History mg sublingual tablet (Zubsolv) alprazolam 1 mg tablet 1 mg PO DAILY PRN anxiety 08/26/23 Unknown History ondansetron 4 mg disintegrating 4 mg PO Q6H PRN nausea and vomiting 08/26/23 08/26/23 History tablet amlodipine 10 mg tablet 10 mg PO DAILY 30 days #30 tabs 08/28/23 Unknown Rx lisinopril 10 mg tablet 10 mg PO DAILY 30 days #30 tabs 08/28/23 Unknown Rx Allergy/AdvReac Type Severity Reaction Status Date / Time No Known Allergies Allergy Verified 06/26/24 12:48 Family History Father Cancer Brain Social History household members: significant other housing: apartment Smoking Status: Former smoker alcohol intake: never substance use type: does not use caffeine: Yes ROS Constitutional Constitutional: Denies chills, fatigue, fever(s) or weakness Eyes Eyes: Denies change in vision Cardiovascular Cardiovascular: Denies chest pain Respiratory/Chest Respiratory/Chest: Denies shortness of breath at rest Gastrointestinal Gastrointestinal: Reports abdominal pain, nausea and vomiting; Denies constipation or diarrhea Genitourinary Genitourinary: Reports dysuria; Denies burning urination Musculoskeletal Musculoskeletal: Denies arthralgias or myalgias Neurologic Neurologic: Reports tremor(s); Denies dizziness or headache(s) Psychiatric Psychiatric: Reports anxiety Vital Signs Vital Signs Vital Signs: 06/26/24 12:48 06/26/24 14:47 06/26/24 16:00 Temperature 98.6 F Temperature Source Oral Pulse Rate 145 H 87 78 Respiratory Rate 18 19 H 16 Blood Pressure 167/116 H 145/99 H 159/104 H Blood Pressure Mean 133 114 122 Pulse Ox 98 99 98 Oxygen Delivery Method Room Air Weight Weight: 74.843 kg Body Mass Index (BMI) 28.3 Physical Exam Const alert, oriented x3 and average body habitus Constitutional Narrative: Young female, mildly anxious and flushed appearing in the face, otherwise sitting up in bed fairly comfortably and answering questions appropriately for me. General Appearance: cooperative HEENT normocephalic, head/scalp atraumatic, hearing grossly normal bilaterally and nasal mucous membranes and turbinates normal Eyes PERRL, EOMs intact bilaterally and conjunctivae normal Neck full ROM Chest inspection of chest normal Resp normal respiratory effort, normal air movement, no use of accessory muscles and clear to auscultation bilaterally Cardio regular rate, regular rhythm, no murmurs and peripheral pulses 2+ throughout GI normal to inspection, nondistended, normoactive bowel sounds, soft to palpation, non-tender and non-distended Back/Spine normal ROM Extremity normal to inspection, full ROM and no pedal edema Skin no rashes or lesions noted Neuro moves all extremities and no focal motor deficits Speech: speech normal Motor Exam: strength 5/5 throughout Psych mental status grossly normal Mood & Affect: anxious Results Lab / Micro Data 06/26/24 13:18 06/26/24 13:18 Labs: Laboratory Results - last 24 hr 06/26/24 13:18: WBC 9.1, RBC 4.17 L, Hgb 13.7, Hct 38.4, MCV 92.1, MCH 32.9 H, MCHC 35.7, RDW Std Deviation 51.1 H, RDW Coeff of Tyra 15.6 H, Plt Count 158, MPV 11.3, Immature Gran % (Auto) 0.700, Neut % (Auto) 73.4 H, Lymph % (Auto) 20.0, [place] % (Auto) 4.9, Eos % (Auto) 0.3, Baso % (Auto) 0.7, Absolute Neuts (auto) 6.7, Absolute Lymphs (auto) 1.83, Nucleated RBC % 0, PT 13.6, INR 1.0, Sodium 133, Potassium 2.8 L, Chloride 92 L, Carbon Dioxide 19.1 L, Anion Gap 22 H, BUN 8, Creatinine 0.68 L, Estim Creat Clear Calc 118.76, Est GFR (MDRD) Non-Af 119, BUN/Creatinine Ratio 12.5, Glucose 140 H, Calcium 9.1, Total Bilirubin 1.49 H, AST 75 H, ALT 33, Alkaline Phosphatase 234 H, Total Protein 8.3, Albumin 4.7, Globulin 3.5, Albumin/Globulin Ratio 1.3, Lipase 33, b-Hydroxybutyric mmol/L 1.3, Serum , Qual NEGATIVE, Ethyl Alcohol < 10.1 06/26/24 13:25: Urine Opiates Screen NEGATIVE, U Buprenorphine Qual PRESUMPTIVE POSITIVE, Ur Oxycodone Screen NEGATIVE, Urine Methadone Screen NEGATIVE, Urine Fentanyl Screen NEGATIVE, Ur Barbiturates Screen NEGATIVE, Ur Phencyclidine Scrn NEGATIVE, Ur Amphetamines Screen NEGATIVE, U Benzodiazepines Scrn PRESUMPTIVE POSITIVE, Urine Cocaine Screen NEGATIVE, U Cannabinoids Screen NEGATIVE 06/26/24 14:35: Urine Color Farnaz, Urine Clarity Cloudy, Urine pH 6.0, Ur Specific [place] 1.020, Urine Protein 100 H, Urine Glucose (UA) Normal, Urine Ketones 5 H, Urine Occult Blood 25 H, Urine Nitrite Positive H, Urine Bilirubin 3 H, Urine Urobilinogen 8 H, Ur Leukocyte Esterase 500 H, Urine RBC 0-5 SEEN, Urine WBC 25-50 SEEN, Ur Squamous Epith Cells 0-5 SEEN, Urine Bacteria 1+, Hyaline Casts 0-5 SEEN, Urine Mucus 4+ 06/26/24 15:22: Lactic Acid < 1.0 ABG Data ABG results: ABG 06/26/24 14:58 Specimen Type PEPITO Sample Site Not entered VBG pH 7.45 H VBG pO2 24 L VBG HCO3 25 VBG Total CO2 26 VBG O2 Sat (Calc) 46 L VBG Base Excess 1 POC Mix VBG pCO2 Pt Tmp 35.8 L O2 Delivery Device Room Air Rhythm Strip Rhythm Strip: Sinus Tach Rate: 130 Ectopy: None Assessment & Plan Assessment/Plan (1) Alcohol abuse: (2) Alcohol withdrawal: (3) Acute hypokalemia: PLAN: Plan Patient is a 33-year-old female who presented to [facility] ED on 06/26/2024 with abdominal pain with nausea/vomiting and anxiety. 1. Alcohol abuse with severe alcohol withdrawal ? Admit under patient status to [facility]. Addiction medicine consulted. Presentation consistent with severe alcohol withdrawal with tachycardia, hypertension, anxiety, tremors and mild hallucinations. Will treat with phenobarbital taper and other as needed medications per alcohol withdrawal order set. 2. Hypokalemia ? Potassium 2.8 on admit. Mag and Phos ordered. Suspect due to poor p.o. intake and GI losses. Will replete as needed. 3. Concern for UTI ? UA showed 500 leukocyte esterase, positive nitrites, 1+ bacteria. Does have history of frequent UTIs. Last UTI in August 2023 grew essentially pansensitive E. coli. Will treat with IV ceftriaxone for now, follow-up urine culture. 4. Reported history of pancreatitis ? Lipase normal in the ED and abdominal pain much improved after IV Ativan and Zofran, low concern for pancreatitis at this time. 5. Hypertension ? Continue home amlodipine and lisinopril. 6. Elevated LFTs ? Presumed secondary to alcohol use. Follow-up a.m. LFTs. DVT prophylaxis: Lovenox CODE STATUS: Full code, verified Expected disposition: Home, 2 to 3 days Total clinical time spent by myself addressing the patient's medical issues, reviewing all the data, and collaborating with patient's care team: 55 minutes. Charges/Coding Visit Charges Inpatient E&M: 48633 Init Hosp L2
[2024-06-26 16:51] LABS: Phosphorus 3.6 mg/dL (2.7-4.5)
[2024-06-26] MEDS: Phenobarbital 32.4 MG Tablet 64.8 MG PO ×2 (18:08→22:21)
[2024-06-26] MEDS: Ceftriaxone 1 GM/50 ML BAG IV (18:09)
[2024-06-26] MEDS: amLODIPine 10 MG Tablet PO (20:02)
[2024-06-26] MEDS: Acetaminophen 325 MG Tablet 650 MG PO (20:05)
[2024-06-26] MEDS: Gabapentin 300 MG Capsule PO (20:06)
[2024-06-26] MEDS: traZODone 100 MG Tablet PO (22:21)
[2024-06-26] MEDS: hydrOXYzine PAM 25 MG Capsule 50 MG PO (22:21)
[2024-06-26] MEDS: Lisinopril 10 MG Tablet PO (22:22)
[2024-06-27 00:05] LABS: Magnesium 0.9 mg/dL (1.5-2.2)
[2024-06-27] MEDS: Phenobarbital 32.4 MG Tablet 64.8 MG PO ×6 (02:43→21:56)
[2024-06-27] MEDS: LORazepam 1 MG Tablet 2 MG PO ×2 (02:46→21:56)
[2024-06-27] MEDS: Acetaminophen 325 MG Tablet 650 MG PO ×3 (02:46→23:17)
[2024-06-27 05:27] VITALS: BP 119/69; PULSE 86; RESP 18; TEMP 36.8; O2SAT 100
[2024-06-27 06:04] LABS: Hematocrit 28.9 % (37-47); Hemoglobin 10.3 g/dL (12.0-15.0); Mean Corp Hgb Conc 35.6 g/dL (32-36); Mean Corpuscular Hgb 33.4 pg (27.0-32.0); Mean Corpuscular Volume 93.8 fL (81-99); Mean Platelet Vol. 11.1 fl (6.2-12.0); Platelet Count 115 K/mm3 (150-450); RBC Distribution Width CV 15.7 % (11.6-14.6); RBC Distribution Width SD 52.9 fl (35.1-43.9); Red Blood Count 3.08 M/mm3 (4.2-5.4); White Blood Count 8.2 K/mm3 (4.4-11.0)
[2024-06-27 06:28] LABS: ALB/GLOB Ratio 1.6 RATIO (0.9-2.4); AST(SGOT) 40 U/L (<=31); Alanine Aminotransfer ALT/SGPT 22 U/L (<=34); Albumin, Serum 3.7 g/dL (3.5-5.0); Alkaline Phosphatase 150 U/L (35-104); Anion Gap 16 (5-15); BUN 8 mg/dL (4-19); BUN/Creat Ratio 11.2 RATIO (10-20); Calcium,Total 7.6 mg/dL (7.6-11.0); Chloride 96 mmol/L (98-108); Creatinine, Serum 0.69 mg/dL (0.70-1.20); EST Glomerular Filtration Rate 119 (>60); Estimated Creatinine Clearance 116.04 ml/min (50-250); Globulin 2.3 g/dL (2.2-4.2); Glucose 108 mg/dL (70-99); Potassium 2.8 mmol/L (3.3-5.1); Sodium Level 133 mmol/L (133-145); Total Bilirubin 0.81 mg/dL (0.00-1.30)
[2024-06-27 07:42] VITALS: BP 111/67; PULSE 93; RESP 16; TEMP 36.6; O2SAT 99
[2024-06-27] MEDS: Thiamine Hydrochloride 100 MG Tablet PO (07:55)
[2024-06-27] MEDS: Folic Acid 1 MG Tablet PO (07:55)
[2024-06-27] MEDS: Potassium Chloride Oral Tablet 20 MEQ 60 MEQ PO (07:59)
[2024-06-27] MEDS: Magnesium Sulfate 4gm/100mL 4 GM/100 ML IV.SOLN. IV (08:36)
[2024-06-27] MEDS: Lisinopril 10 MG Tablet PO (10:30)
[2024-06-27] MEDS: amLODIPine 10 MG Tablet PO (10:30)
--- NOTE | 2024-06-27 10:48 | PN.HOSP_ITS ---
Subjective Subjective CIWA score 14, nursing reports visual hallucinations. During my evaluation she is sitting up in bed eating breakfast Objective Data Objective Data Vital Signs: Vital Signs Temp Pulse Resp BP Pulse Ox O2 Del Method 97.8 F 93 16 111/67 99 Room Air 06/27/24 07:42 06/27/24 07:42 06/27/24 07:42 06/27/24 07:42 06/27/24 07:42 06/27/24 07:53 Oxygen Delivery Method Room Air Weight: 162 lb 0.636 oz Body Mass Index (BMI) 27.8 Intake & Output: Intake and Output for Last 24 Hours 06/26/24 06/27/24 06/28/24 03:59 03:59 03:59 Intake Total 1450 / 1450 450 / 450 Balance 1450 / 1450 450 / 450 Lab / Micro Data 06/27/24 05:38 06/27/24 05:38 Labs: Laboratory Results - last 24 hr 06/26/24 13:18: WBC 9.1, RBC 4.17 L, Hgb 13.7, Hct 38.4, MCV 92.1, MCH 32.9 H, MCHC 35.7, RDW Std Deviation 51.1 H, RDW Coeff of Tyra 15.6 H, Plt Count 158, MPV 11.3, Immature Gran % (Auto) 0.700, Neut % (Auto) 73.4 H, Lymph % (Auto) 20.0, [place] % (Auto) 4.9, Eos % (Auto) 0.3, Baso % (Auto) 0.7, Absolute Neuts (auto) 6.7, Absolute Lymphs (auto) 1.83, Nucleated RBC % 0, PT 13.6, INR 1.0, Sodium 133, Potassium 2.8 L, Chloride 92 L, Carbon Dioxide 19.1 L, Anion Gap 22 H, BUN 8, Creatinine 0.68 L, Estim Creat Clear Calc 118.76, Est GFR (MDRD) Non-Af 119, BUN/Creatinine Ratio 12.5, Glucose 140 H, Calcium 9.1, Phosphorus 3.6, Magnesium 0.9 L*, Total Bilirubin 1.49 H, AST 75 H, ALT 33, Alkaline Phosphatase 234 H, Total Protein 8.3, Albumin 4.7, Globulin 3.5, Albumin/Globulin Ratio 1.3, Lipase 33, b-Hydroxybutyric mmol/L 1.3, Serum , Qual NEGATIVE, Ethyl Alcohol < 10.1 06/26/24 13:25: Urine Opiates Screen NEGATIVE, U Buprenorphine Qual PRESUMPTIVE POSITIVE, Ur Oxycodone Screen NEGATIVE, Urine Methadone Screen NEGATIVE, Urine Fentanyl Screen NEGATIVE, Ur Barbiturates Screen NEGATIVE, Ur Phencyclidine Scrn NEGATIVE, Ur Amphetamines Screen NEGATIVE, U Benzodiazepines Scrn PRESUMPTIVE POSITIVE, Urine Cocaine Screen NEGATIVE, U Cannabinoids Screen NEGATIVE 06/26/24 14:35: Urine Color Farnaz, Urine Clarity Cloudy, Urine pH 6.0, Ur Specific [place] 1.020, Urine Protein 100 H, Urine Glucose (UA) Normal, Urine Ketones 5 H, Urine Occult Blood 25 H, Urine Nitrite Positive H, Urine Bilirubin 3 H, Urine Urobilinogen 8 H, Ur Leukocyte Esterase 500 H, Urine RBC 0-5 SEEN, Urine WBC 25-50 SEEN, Ur Squamous Epith Cells 0-5 SEEN, Urine Bacteria 1+, Hyaline Casts 0-5 SEEN, Urine Mucus 4+ 06/26/24 15:22: Lactic Acid < 1.0 06/27/24 05:38: WBC 8.2, RBC 3.08 L, Hgb 10.3 L, Hct 28.9 L, MCV 93.8, MCH 33.4 H, MCHC 35.6, RDW Std Deviation 52.9 H, RDW Coeff of Tyra 15.7 H, Plt Count 115 L , MPV 11.1, Sodium 133, Potassium 2.8 L, Chloride 96 L, Carbon Dioxide 21.0, A nion Gap 16 H, BUN 8, Creatinine 0.69 L, Estim Creat Clear Calc 116.04, Est GFR (MDRD) Non-Af 119, BUN/Creatinine Ratio 11.2, Glucose 108 H, Calcium 7.6, Total Bilirubin 0.81, AST 40 H, ALT 22, Alkaline Phosphatase 150 H, Total Protein 6.0, Albumin 3.7, Globulin 2.3, Albumin/Globulin Ratio 1.6 Micro: Microbiology 06/26/24 14:35 Interface Orders Urine Culture - Preliminary Culture exhibits no growth. ABG Data ABG results: ABG 06/26/24 14:58 Specimen Type PEPITO Sample Site Not entered VBG pH 7.45 H VBG pO2 24 L VBG HCO3 25 VBG Total CO2 26 VBG O2 Sat (Calc) 46 L VBG Base Excess 1 POC Mix VBG pCO2 Pt Tmp 35.8 L O2 Delivery Device Room Air Rhythm Strip Rhythm Strip: Sinus Tach Rate: 130 Ectopy: None Physical Exam Narrative General: Alert, Oriented x3, Cooperative, No apparent distress HEENT: Atraumatic, PERRLA, EOMI, Normocephalic Oral: Moist Mucosa Neck: Supple, No JVD Lungs: Clear to auscultation, Normal air movement, No rhonchi, No wheeze, No rales Cardiovascular: Regular rate, Regular Rhythm, Normal S1, Normal S2, No murmurs Abdomen: Soft, Non Tender, Non-Distended, No Hepato-splenomegaly Extremities: No edema, Capillary Refill Less than 3 Seconds Skin: No rashes, No breakdown Musculoskeletal: No Tenderness to Palpation of Joints or Extremities Neurological: No focal neurological deficits, Motor Exam 5/5 strength throughout, Sensory exam intact to light touch and pain Psych/Mental Status: Normal Affect, restless, anxious Assessment & Plan Assessment/Plan (1) Alcohol abuse: (2) Alcohol withdrawal: (3) Acute hypokalemia: PLAN: Plan 1. Alcohol abuse with severe alcohol withdrawal/hypomagnesemia and hypokalemia/history of alcohol induced pancreatitis/elevated LFTs ? Continue with alcohol withdrawal protocol ? Magnesium came back at 0.9, will infuse IV magnesium and replace potassium recheck in the morning ? Will have her follow-up with 180 to develop a discharge plan for outpatient rehab for possible ? Lipase is negative, LFT elevation is alcohol-induced 2. Concern for UTI ? UA showed 500 leukocyte esterase, positive nitrites, 1+ bacteria. Does have history of frequent UTIs. Last UTI in August 2023 grew essentially pansensitive E. coli. ? Will treat with IV ceftriaxone for now, follow-up urine culture. 3. Essential HTN ? Continue home amlodipine and lisinopril. ? Will monitor her blood pressure and make adjustments as necessary DVT: Lovenox Charges/Coding Visit Charges Inpatient E&M: 15714 Subs Hosp L2
[2024-06-27] MEDS: Ceftriaxone 1 GM/50 ML BAG IV (12:48)
[2024-06-27] MEDS: hydrOXYzine PAM 25 MG Capsule 50 MG PO (12:55)
[2024-06-27 13:49] VITALS: BP 122/75; PULSE 90; RESP 16; TEMP 36.6; O2SAT 99
[2024-06-27 15:30] LABS: Magnesium 2.3 mg/dL (1.5-2.2)
[2024-06-27 21:27] VITALS: BP 138/87; PULSE 90; RESP 15; TEMP 36.8; O2SAT 100
[2024-06-27 21:36] VITALS: BP 138/87; PULSE 90; RESP 15; TEMP 36.8; O2SAT 100
[2024-06-27] MEDS: traZODone 100 MG Tablet PO (23:17)
[2024-06-28] VITALS (34 sets, daily range): BP systolic 127–166; BP diastolic 82–122; PULSE 71–124; RESP 15–32; TEMP 36.2–36.9; O2SAT 94–100; BMI 27.4
--- NOTE | 2024-06-28 00:44 | PCM.HOSP.N ---
Hospitalist Note Patient with increased withdrawal symptoms, roaming the unit, agitated, will given an additional loading dose of phenobarbital now. If not effective in addition to ongoing overlapping ativan/CIWA may require transition to the ICU for precedex usage.
[2024-06-28] MEDS: Phenobarbital Sodium 130 MG/ML Vial 100 MG IV (01:01)
[2024-06-28] MEDS: 0.9% Saline Lock 10 ML Syringe IV ×4 (01:02→19:27)
[2024-06-28] MEDS: Phenobarbital 32.4 MG Tablet 64.8 MG PO ×3 (02:10→09:50)
[2024-06-28] MEDS: Gabapentin 300 MG Capsule PO (02:11)
[2024-06-28] MEDS: Lorazepam 2 MG/ML WCH Syringe IV ×6 (03:26→21:49)
[2024-06-28] MEDS: dexMEDEtomidine 400 MCG in 0.9% Normal Saline (100mL Bag) 96 ML 9.2 MCG CONT INF (03:57)
--- NOTE | 2024-06-28 04:17 | NURSING ---
MS3: 0300. PT CONTINUES TO BE RESTLESS, ANXIOUS, WORRYING ABOUT HER FIANCE AND KIDS. AMBULATING THE HALLS, HAVING AUDITORY & VISUAL HALLUCINATIONS THIS SHIFT. MULTIPLE PRN'S GIVEN WITHOUT EFFECTIVENESS. NEW ORDER OBTAINED TO TRANSFER PT TO ICU#3 FOR PRECEDEX DRIP. PT HAS BEEN PLEASANT THROUGHOUT THIS SHIFT. VSS.
[2024-06-28 05:14] LABS: Anion Gap 16 (5-15); BUN 6 mg/dL (4-19); BUN/Creat Ratio 10.5 RATIO (10-20); Calcium,Total 8.5 mg/dL (7.6-11.0); Carbon Dioxide 18.8 mmol/L (21.0-32.0); Chloride 99 mmol/L (98-108); Creatinine, Serum 0.55 mg/dL (0.70-1.20); EST Glomerular Filtration Rate 126 (>60); Glucose 122 mg/dL (70-99); Magnesium 1.7 mg/dL (1.5-2.2); Potassium 2.9 mmol/L (3.3-5.1); Sodium Level 133 mmol/L (133-145)
[2024-06-28 05:47] LABS: Phosphorus 3.3 mg/dL (2.7-4.5)
[2024-06-28] MEDS: Potassium Chloride 10mEq/100mL 10 MEQ/100 ML IV.SOLN. 100 MEQ IV BOLUS ×4 (06:23→10:59)
[2024-06-28] MEDS: Magnesium Sulfate 1 GM in Dextrose 5%-Water (100mL Bag) 100 ML IV (06:23)
[2024-06-28] MEDS: 0.9% Normal Saline (100mL Bag) 100 ML 15 ML IV ×2 (06:24)
[2024-06-28] MEDS: Ceftriaxone 1 GM/50 ML BAG IV (08:54)
[2024-06-28] MEDS: Enoxaparin 40 MG/0.4 ML Syringe SC (08:54)
[2024-06-28] MEDS: dexMEDEtomidine 400 MCG in 0.9% Normal Saline (100mL Bag) 96 ML 16.5 MCG CONT INF (08:55)
--- NOTE | 2024-06-28 09:20 | PCM.PN.HOSP ---
Subjective Subjective currently on Precedex due to agitation overnight Objective Data Objective Data Vital Signs: Vital Signs Temp Pulse Resp BP Pulse Ox O2 Del Method 97.2 F L 78 20 H 149/103 H 97 Room Air 06/28/24 08:00 06/28/24 09:00 06/28/24 09:00 06/28/24 09:00 06/28/24 09:00 06/28/24 09:00 Oxygen Delivery Method Room Air Weight: 160 lb 14.999 oz Body Mass Index (BMI) 27.4 Intake & Output: Intake and Output for Last 24 Hours 06/27/24 06/28/24 06/29/24 03:59 03:59 03:59 Intake Total 1450 / 1450 600 / 600 352.31 / 352.31 Balance 1450 / 1450 600 / 600 352.31 / 352.31 Lab / Micro Data 06/27/24 05:38 06/28/24 04:15 Labs: Laboratory Results - last 24 hr 06/27/24 15:07: Magnesium 2.3 H 06/28/24 04:15: Sodium 133, Potassium 2.9 L, Chloride 99, Carbon Dioxide 18.8 L, Anion Gap 16 H, BUN 6, Creatinine 0.55 L, Estim Creat Clear Calc 145.10, Est GFR (MDRD) Non-Af 126, BUN/Creatinine Ratio 10.5, Glucose 122 H, Calcium 8.5, Phosphorus 3.3, Magnesium 1.7 Micro: Microbiology 06/26/24 14:35 Interface Orders Urine Culture - Final Culture exhibits no growth. Rhythm Strip Rhythm Strip: Sinus Tach Rate: 130 Ectopy: None Physical Exam Narrative General: Drowsy on Precedex HEENT: Atraumatic, PERRLA, EOMI, Normocephalic Oral: Moist Mucosa Neck: Supple, No JVD Lungs: Clear to auscultation, Normal air movement, No rhonchi, No wheeze, No rales Cardiovascular: Regular rate, Regular Rhythm, Normal S1, Normal S2, No murmurs Abdomen: Soft, Non Tender, Non-Distended, No Hepato-splenomegaly Extremities: No edema, Capillary Refill Less than 3 Seconds Skin: No rashes, No breakdown Musculoskeletal: No Tenderness to Palpation of Joints or Extremities Neurological: No focal neurological deficits, Motor Exam 5/5 strength throughout, Sensory exam intact to light touch and pain Psych/Mental Status: Flat Assessment & Plan Assessment/Plan (1) Alcohol abuse: (2) Alcohol withdrawal: (3) Acute hypokalemia: PLAN: Plan 1. Alcohol abuse with severe alcohol withdrawal/hypomagnesemia and hypokalemia/history of alcohol induced pancreatitis/elevated LFTs ? Continue with alcohol withdrawal protocol ? Continue to manage electrolytes ? Currently on Precedex will add Librium ? Will have her follow-up with 180 to develop a discharge plan for outpatient rehab for possible ? Lipase is negative, LFT elevation is alcohol-induced 2. Urine culture with no growth, she did receive 3 days of Rocephin 3. Essential HTN ? Continue home amlodipine and lisinopril. ? Will monitor her blood pressure and make adjustments as necessary DVT: Lovenox Charges/Coding Visit Charges Inpatient E&M: 60555 Subs Hosp L2
[2024-06-28] MEDS: Folic Acid 1 MG Tablet PO (09:35)
[2024-06-28] MEDS: Thiamine Hydrochloride 100 MG Tablet PO (09:35)
[2024-06-28] MEDS: Potassium Chloride Oral Tablet 20 MEQ 60 MEQ PO (09:49)
[2024-06-28] MEDS: amLODIPine 10 MG Tablet PO (09:51)
[2024-06-28] MEDS: Lisinopril 10 MG Tablet PO (09:51)
[2024-06-28] MEDS: chlordiazePOXIDE 25 MG Capsule 50 MG PO (09:54)
--- NOTE | 2024-06-28 12:27 | NURSING ---
1158- patient becoming more agitated, yelling at staff, argumentative, restless/impulsive 1202- security called 1208- Dr. Bradford notified to come to the floor 1210- security and Dr. Bradford arrived to floor and into patient's room, Dr. Bradford discussing patient not going home and going through alcohol withdraw, patient became combative requiring multiple staff members to hold patient down in bed, ativan given, precedex maxed, locked restraints on bilateral upper and lower extremities. 1217-patient began spitting at staff, mask placed on patient
[2024-06-28] MEDS: dexMEDEtomidine 400 MCG in 0.9% Normal Saline (100mL Bag) 96 ML 27.6 MCG CONT INF (13:58)
--- NOTE | 2024-06-28 15:57 | CASEMGMT ---
Social Work- SW spoke with pt mom who wanted to share concerns and information. Pt mom reports that pt and Alvaro were high school sweethearts who have been together 15 years. Pt and Alvaro have three children ages 12,8,and 6. Pt previously worked full-time, but recently lost her job due to drinking and pill use. Pt mom reports that pt father 4 years ago of brain cancer, but he was an alcoholic for the duration of his adult life. Pt mother reports that her son (pt brother) was killed in 2012 in an automobile accident. Shortly after that time, pt was started on Suboxone and reports that pt has remained on Suboxone for 12 years. Pt mother reports that pt over-uses Xanax and mixes pills with alcohol all while on the Suboxone and pt mother is concerned about accidental . Pt mother reports that pt is often angry and hateful when she's using. Pt mother shared that pt has asked if she is bipolar, but reportedly has not undergone psychiatric assessment/treatment. Pt mother and pt SO, Alvaro, have allegedly discussed pt need for counseling and pt has been agreeable, but never started services. Pt mother reports that pt drives while intoxicated and is concerned about pt ability to make appropriate decisions. Pt mother spoke with hospitalist earlier today and would like to speak with poison information specialist following assessment to discuss her desire for pt to have inpatient or outpatient treatment at discharge. Pt mother very appreciative of assistance and support. MARVEL spoke with poison information specialist regarding pt mother's request for supports/information. MARVEL remains available to follow. KHADIJAH Pimentel
[2024-06-28] MEDS: dexMEDEtomidine 400 MCG in 0.9% Normal Saline (100mL Bag) 96 ML 27.4 MCG CONT INF (17:30)
--- NOTE | 2024-06-28 19:27 | NURSING ---
Patient noted to be waking up, restless in bed during shift change. Patient kicking legs around, yelling at staff to uncuff her. Patient began rambling; she states we are holding her against her will and her fiance would never allow us to do this to her. Staff attemping to reorient patient to situation, patient replied with, I am not stupid. Patient attempting to hit staff while adjusting soft wrist restraints. Precedex still on max dose, PRN IV Ativan administered.
[2024-06-28] MEDS: Dexmedetomidine 1,000 mcg in 0.9% NS 240 mL 27.4 MCG CONT INF (21:29)
[2024-06-29] VITALS (14 sets, daily range): BP systolic 110–165; BP diastolic 75–112; PULSE 69–123; RESP 18–23; TEMP 36.4–36.8; O2SAT 97–99; BMI 27.9
[2024-06-29] MEDS: Lorazepam 2 MG/ML WCH Syringe IV (02:00)
[2024-06-29] MEDS: Phenobarbital 32.4 MG Tablet 64.8 MG PO ×3 (02:00→13:42)
[2024-06-29] MEDS: Acetaminophen 325 MG Tablet 650 MG PO ×2 (02:00→12:27)
--- NOTE | 2024-06-29 02:29 | NURSING ---
0130: patient woke, moved in bed enough to undo restraints. yelling at staff demanding to let her leave to go check on her children.. offered to contact SO to discuss children/home situation 0140: phoned SO, no answer, voicemail left 0145: spoke with Nuñez, see physician notification 0147: patient began to relax, beginning to calm and reason with staff, more receptive to information 0155: patient agreeable to take PO phenobarb, asking for tylenol 0200: IV ativan given
[2024-06-29] MEDS: chlordiazePOXIDE 25 MG Capsule 50 MG PO ×2 (05:44→13:42)
[2024-06-29] MEDS: hydrOXYzine PAM 25 MG Capsule 50 MG PO (05:51)
[2024-06-29 06:40] LABS: Anion Gap 14 (5-15); BUN 3 mg/dL (4-19); BUN/Creat Ratio 6.9 RATIO (10-20); Carbon Dioxide 20.3 mmol/L (21.0-32.0); Chloride 97 mmol/L (98-108); EST Glomerular Filtration Rate 128 (>60); Estimated Creatinine Clearance 160.85 ml/min (50-250); Glucose 96 mg/dL (70-99); Magnesium 1.7 mg/dL (1.5-2.2); Potassium 3.6 mmol/L (3.3-5.1); Sodium Level 132 mmol/L (133-145)
[2024-06-29] MEDS: Dexmedetomidine 1,000 mcg in 0.9% NS 240 mL 14.8 MCG CONT INF (07:45)
[2024-06-29] MEDS: Lisinopril 10 MG Tablet PO (08:52)
[2024-06-29] MEDS: Thiamine Hydrochloride 100 MG Tablet PO (08:52)
[2024-06-29] MEDS: Folic Acid 1 MG Tablet PO (08:52)
[2024-06-29] MEDS: amLODIPine 10 MG Tablet PO (08:52)
--- NOTE | 2024-06-29 09:02 | PCM.PN.HOSP ---
Subjective Subjective CIWA score of 5 this morning. She was back down to soft restraints after the walk restraints yesterday afternoon currently on Precedex Objective Data Objective Data Vital Signs: Vital Signs Temp Pulse Resp BP Pulse Ox O2 Del Method 97.5 F L 72 23 H 146/89 H 99 Room Air 06/29/24 08:00 06/29/24 08:00 06/29/24 08:00 06/29/24 08:00 06/29/24 08:00 06/29/24 08:00 Oxygen Delivery Method Room Air Weight: 163 lb 9.328 oz Body Mass Index (BMI) 27.9 Intake & Output: Intake and Output for Last 24 Hours 06/28/24 06/29/24 06/30/24 03:59 03:59 03:59 Intake Total 600 / 600 1703.45 / 1709.38 85.63 / 85.63 Output Total 850 / 850 500 / 500 Balance 600 / 600 853.45 / 859.38 -414.37 / -414.37 Lab / Micro Data 06/27/24 05:38 06/29/24 06:15 Labs: Laboratory Results - last 24 hr 06/29/24 06:15: Sodium 132 L, Potassium 3.6, Chloride 97 L, Carbon Dioxide 20.3 L, Anion Gap 14, BUN 3 L, Creatinine 0.50 L, Estim Creat Clear Calc 160.85, Est GFR (MDRD) Non-Af 128, BUN/Creatinine Ratio 6.9 L, Glucose 96, Calcium 9.0, Magnesium 1.7 Micro: Microbiology 06/26/24 14:35 Interface Orders Urine Culture - Final Culture exhibits no growth. Rhythm Strip Rhythm Strip: Sinus Tach Rate: 130 Ectopy: None Physical Exam Narrative General: Drowsy on Precedex HEENT: Atraumatic, PERRLA, EOMI, Normocephalic Oral: Moist Mucosa Neck: Supple, No JVD Lungs: Clear to auscultation, Normal air movement, No rhonchi, No wheeze, No rales Cardiovascular: Regular rate, Regular Rhythm, Normal S1, Normal S2, No murmurs Abdomen: Soft, Non Tender, Non-Distended, No Hepato-splenomegaly Extremities: No edema, Capillary Refill Less than 3 Seconds Skin: No rashes, No breakdown Musculoskeletal: No Tenderness to Palpation of Joints or Extremities Neurological: No focal neurological deficits, moves all extremities Psych/Mental Status: Flat Assessment & Plan Assessment/Plan (1) Alcohol abuse: (2) Alcohol withdrawal: (3) Acute hypokalemia: PLAN: Plan 1. Alcohol abuse with severe alcohol withdrawal/hypomagnesemia and hypokalemia/history of alcohol induced pancreatitis/elevated LFTs ? Continue with alcohol withdrawal protocol ? Potassium is stabilized ? Currently on Precedex continue with Librium. Will wean Precedex as able will discuss with her significant other if he is willing to take responsibility for taking her home it appears that she has been wanted to try to leave AMA again today ? Will have her follow-up with 180 to develop a discharge plan for outpatient rehab for possible ? Lipase is negative, LFT elevation is alcohol-induced 2. Urine culture with no growth, she did receive 3 days of Rocephin 3. Essential HTN ? Continue home amlodipine and lisinopril. ? Will monitor her blood pressure and make adjustments as necessary DVT: Lovenox Charges/Coding Visit Charges Inpatient E&M: 86412 Subs Hosp L2
--- NOTE | 2024-06-29 14:44 | DCINST_ITS ---
Discharge Instructions Diet Discharge Diet: No restrictions DC O2, CPAP, BIPAP needs Home O2 Discharge instructions: No Dressing / Incision Discharge Activity: Return to Normal Activity Dressing / Incision Call your doctor if you observe: Fever of 101 or Higher, Shortness of breath, Dizziness, Fainting spells, Swelling in the ankles, Chest pain and Increased palpitations (irregular heartbeat) Follow Up Care Test Results: Test results from this visit will be discussed in further detail at your follow- up appointment, if applicable. Discharge Plan Admission Admit Date/Time: 06/26/24 16:34 Attending Provider: Joe Bradford Primary Care Provider: Care Physician,No Primary Consulting Providers: Dionte Mills Discharge Orders/Prescriptions Prescriptions: Continued Zubsolv 5.7-1.4 mg Tablet, Sublingual 1 tab SUBLINGUAL DAILY ondansetron 4 mg tablet,disintegrating 4 mg PO Q6H PRN (Reason: nausea and vomiting) amlodipine 10 mg Tablet 10 mg PO DAILY 30 Days Qty: 30 0RF lisinopril 10 mg Tablet 10 mg PO DAILY 30 Days Qty: 30 0RF Discontinued alprazolam 1 mg tablet 1 mg PO DAILY PRN (Reason: anxiety) Referrals / Follow Up: Care Physician,No Primary [Primary Care Provider] - Disposition Disposition (needs filled in before D/C Order can be placed): Home, Self Care
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
== END 2024-06-29 15:25 | disposition home or self-care (01) | DRG 775 ==
LOC: ED 15:19 → MS3 16:51 → ICU 06-28 03:53
PROVIDERS: Family Medicine; Admitting Provider Hospitalist; Emergency Provider Emergency Medicine; Visit Provider Family Medicine
DX: F10.231 Alcohol dependence with withdrawal delirium (principal); E87.29 Other acidosis; I10 Essential (primary) hypertension; K70.9 Alcoholic liver disease, unspecified; E87.6 Hypokalemia; R19.7 Diarrhea, unspecified; R11.2 Nausea with vomiting, unspecified; F41.9 Anxiety disorder, unspecified; E83.42 Hypomagnesemia; Z87.891 Personal history of nicotine dependence; Z87.440 Personal history of urinary (tract) infections; R74.01 Elevation of levels of liver transaminase levels; N39.0 Urinary tract infection, site not specified; Z78.1 Physical restraint status
CPT/HCPCS: 36415; 80048; 80053; 80307; 81001; 82010; 82077; 82803; 83605; 83690; 83735; 84100; 84703; 85025; 85027; 85610; 87086; 93005; 99284; A4216; J2405

== ENCOUNTER → 2024-08-19 | Outpatient (CLI) | payer MEDICAID, SELFPAY ==
[2024-08-19 13:21] LABS: Hepatitis B Surface Antibody REAC
[2024-08-19 13:23] LABS: Hepatitis B Surface Antigen Nonreactive (Nonreactive)
[2024-08-20 15:27] LABS: HIV Nonreactive (Nonreactive)
[2024-08-23 19:08] LABS: HCV Quant. RNA PCR HCV Not Detected IU/mL (.); Hepatitis A AB, Total Negative (Negative)
== END | disposition home or self-care (01) ==
LOC: MTLAB 09:17
PROVIDERS: Referring Provider Family Medicine; Visit Provider Family Medicine
DX: F11.20 Opioid dependence, uncomplicated (principal)
CPT/HCPCS: 36415; 86703; 86706; 86708; 87340; 87522; 87902

== ENCOUNTER → 2025-03-28 | Outpatient (CLI) | payer MEDICAID, SELFPAY ==
[2025-03-28 15:32] LABS: Hematocrit 34.9 % (37-47); Hemoglobin 11.9 g/dL (12.0-15.0); Mean Corp Hgb Conc 34.1 g/dL (32-36); Mean Corpuscular Volume 93.1 fL (81-99); Mean Platelet Vol. 10.4 fl (6.2-12.0); Platelet Count 327 K/mm3 (150-450); RBC Distribution Width CV 12.4 % (11.6-14.6); RBC Distribution Width SD 42.1 fl (35.1-43.9); Red Blood Count 3.75 M/mm3 (4.2-5.4); White Blood Count 4.5 K/mm3 (4.4-11.0)
[2025-03-28 15:55] LABS: AST(SGOT) 180 U/L (<=31); Alanine Aminotransfer ALT/SGPT 46 U/L (<=34); Albumin, Serum 4.4 g/dL (3.5-5.0); Alkaline Phosphatase 122 U/L (35-104); Anion Gap 15 (7-18); BUN 7 mg/dL (4-19); BUN/Creat Ratio 12.5 RATIO (10-20); Calcium,Total 8.2 mg/dL (7.6-11.0); Carbon Dioxide 27.0 mmol/L (20.0-29.0); Chloride 100 mmol/L (96-106); Cholesterol 223 mg/dL (<=200); Globulin 2.8 g/dL (2.2-4.2); Glucose 123 mg/dL (70-99); Low Density Lipoprotein Calc. 60 mg/dL; Potassium 2.8 mmol/L (3.5-5.1); Triglycerides 464 mg/dL; Very Low Density Lipoprotein 93 mg/dL (5-40); Vitamin D,25 Hydroxy 35.1 ng/mL (30-100); cholesterol:hdl ratio screen 2.37
== END | disposition home or self-care (01) ==
LOC: MFPLAB 12:15
PROVIDERS: PCP Family Medicine; Referring Provider Family Medicine; Visit Provider Family Medicine
DX: Z13.1 Encounter for screening for diabetes mellitus (principal); R53.83 Other fatigue; I10 Essential (primary) hypertension
CPT/HCPCS: 36415; 80053; 80061; 82306; 83036; 84443; 85027